=== PATIENT | female | born 1955 | race Caucasian/White ===

== ENCOUNTER 2021-12-16 09:09 | Emergency (ER) | payer BC, SELFPAY ==
[2021-12-16 09:15] VITALS: BP 145/91; PULSE 98; TEMP 36.4; O2SAT 97; BMI 23.5
--- NOTE | 2021-12-16 09:28 | ED.GENADULT ---
HPI - General Adult General Time Seen by Provider: 09:28 Date Seen: 12/16/21 Chief complaint: Skin/Abscess/Foreign Body Stated complaint: Welts on body and face Time Seen by Provider: 12/16/21 09:22 Source: patient Mode of arrival: ambulatory Limitations: no limitations History of Present Illness HPI narrative: Patient is a very pleasant 66 white female who has a history of being quite healthy, has been out trees with her , but developed a rash over her face the back of her left leg. These look like welts, they do not look like poison klaus, they have been pruritic areas. Fortunately she has note throat or tongue symptoms no breathing difficulty. She has not had history of allergy before other than maybe to be bites in the past for she had a reaction locally. No new exposures to allergens no new detergents, no new foods. Related Data Previous Rx's Medication Instructions Recorded prednisone 20 mg tablet 20 mg PO BID #10 tabs 12/16/21 Allergies Allergy/AdvReac Type Severity Reaction Status Date / Time Penicillins Allergy Verified 12/16/21 09:19 Review of Systems Status of ROS: Reports: 6 or more systems reviewed and unremarkable except as noted in History and below Exam Narrative: Exam Narrative: Objective: Patient's vital signs unremarkable Alert orient x3 noncyanotic Urticarial rash over her left side of her face back of her left leg Lungs are clear Mouth is clear. Const: Vital Signs, click to edit/add: Vital Signs - 24 hr 12/16/21 09:15 Temperature 97.5 F L Pulse Rate [Left P ulse Oximeter] 98 Blood Pressure [Ri ght Upper Arm] 145/91 H Pulse Oximetry 97 Oxygen Delivery Me thod Room Air Course Vital Signs Vital signs: Initial Vital Signs Temperature 97.5 F L 12/16/21 09:15 Temperature Source Temporal Artery Scan 12/16/21 09:15 Pulse Rate 98 12/16/21 09:15 Blood Pressure 145/91 H 12/16/21 09:15 Blood Pressure Mean 109 12/16/21 09:15 Blood Pressure Position Supine 12/16/21 09:15 Pulse Oximetry 97 12/16/21 09:15 Oxygen Delivery Method 12/16/21 09:15 Vital Signs Temperature 97.5 F L 12/16/21 09:15 Pulse Rate 98 12/16/21 09:15 Blood Pressure 145/91 H 12/16/21 09:15 Pulse Oximetry 97 12/16/21 09:15 Oxygen Delivery Method 12/16/21 09:15 Temperature 97.5 F L 12/16/21 09:15 Pulse Rate 98 12/16/21 09:15 Blood Pressure 145/91 H 12/16/21 09:15 Pulse Oximetry 97 12/16/21 09:15 Oxygen Delivery Method 12/16/21 09:15 Medical Decision Making MDM Narrative Medical decision making narrative: Patient appears to have an urticarial rash does not appear to be poison klaus or contact dermatitis. Will give her prednisone 50 mg now start 20 b.i.d. x5 days tomorrow. Will have her use Benadryl 25-50 q.i.d. with next 3 days, follow-up with primary care in 48 hours certainly return to the ED sooner any difficulty breathing throat symptoms tongue swelling. Discharge Plan Discharge Clinical Impression: Urticaria Patient Disposition: Home w/ Parent or Adult Condition: Stable Additional Instructions: Light activity, prednisone 20 mg b.i.d. x5 days start this tomorrow, Benadryl 25-50 mg 4 times a day for the next 3 days. May use some topical lotion such as hydrocortisone or moisturizing lotion. Update primary care doctor in the next 48 hours certainly sooner change concerns worsening return to ED. Activity Level: Light activity Discharge Diet: Regular Prescriptions: New prednisone 20 mg tablet 20 mg PO BID Qty: 10 0RF Stand Alone Forms: [employer] Info Instructions
[2021-12-16] MEDS: predniSONE 10 MG TABLET 50 MG PO (09:33)
[2021-12-16] MEDS: diphenhydrAMINE 25 MG CAPSULE 50 MG PO (09:33)
--- OUTSIDE RECORDS SUMMARY | 2021-12-16 09:43 | XMS_ITS | Encounter Summary ---
:1955 Author Organization [place] Address [address] [place] [address] Care Team Providers Name Role Phone Rupesh Grullon MD Primary Care Provider Rupesh Grullon MD Unavailable Jhonatan Butcher DPM Unavailable Encounter Details Date Type Department Care Team Description 02/10/2021 Travel Social History Tobacco Use Types Packs/Day Years Used Date Never Smoker Smokeless Tobacco: Never Used Alcohol Use Standard Drinks/Week Comments Yes 0 (1 standard drink = 0.6 oz pure alcoho l) 4-5 drinks a week Alcohol Habits Answer Date Recorded How often do you have a drink containing alcohol? Not asked How many drinks containing alcohol do you have on a Not aske d typical day when you are drinking? How often do you have six or more drinks on one Not asked occasion? 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 documented as of this encounter Plan of Treatment Not on filedocumented as of this encounter Visit Diagnoses Not on filedocumented in this encounter Care Teams Truck Driver Instructor Relationship Specialty Start Date End Date Rupesh Grullon MD PCP - General Internal Medicine 04/03/10 Rupesh Grullon MD Assigned PCP 10/07/16 [address] [place] [address] [place] [id number] Jhonatan Butcher, Assigned Musculoskeletal 01/01/20 02/25/21 DPM Provider [address] [place] [id number] documented as of this encounter
--- OUTSIDE RECORDS SUMMARY | 2021-12-16 09:43 | XMS_ITS | Encounter Summary ---
:1955 Author Organization [place] Address [facility]ly [facility], [facility] [place] [address] Care Team Providers Name Role Phone Rupesh Grullon MD Primary Care Provider Rupesh Grullon MD Unavailable Jhonatan Butcher DPM Unavailable Reason for Visit Reason Onset Date Comments Referral 08/10/2019 pole climber Encounter Details Date Type Department Care Team Description 08/10/2019 Telephone [facility] Rupesh Grullon MD Referral (pole climber) Clinic [address] [place] [address] [place] [address] [phone] Social History Tobacco Use Types Packs/Day Years [...] been in contact with No / Unsure 09/30/2019 8:38 AM CDT someone who was confirmed or suspected to have Coronavirus / COVID-19? documented as of this encounter Miscellaneous Notes Telephone Encounter - Carol Kaur RN - 08/10/2019 12:08 PM CDT [employer] Exchange[employer] response sent to patient. Carol Smith RN Telephone Encounter - Liz Ricks - 08/10/2019 10:55 AM CDT Reason for Call: Request for an order or referral: Order or referral being requested: pole climber Date needed: as soon as possible Has the patient been seen by the PCP for this problem? NO Additional comments: lump on bottom of foot Phone number Patient can be reached at: Cell number on file: Telephone Information: Best Time: any Can we leave a detailed message on this number? YES Call taken on 08/10/2019 at 10:55 AM by Liz Ricks documented in this encounter Plan of Treatment Not on filedocumented as of this encounter Visit Diagnoses Not on filedocumented in this encounter Care Teams Modeling Agent Relationship Specialty Start Date End Date Rupesh Grullon MD PCP - General Internal Medicine 04/03/10 Rupesh Grullon MD Assigned PCP 10/07/16 [address] [place] [id number] Jhonatan Butcher, Assigned Musculoskeletal 01/01/20 02/25/21 DPM Provider [address] [place] [id number] documented as of this encounter
--- OUTSIDE RECORDS SUMMARY | 2021-12-16 09:43 | XMS_ITS | Encounter Summary ---
:1955 Author Organization [place] Address [address] [place] [address] Care Team Providers Name Role Phone Rupesh Grullon MD Primary Care Provider Rupesh Grullon MD Unavailable Encounter Details Date Type Department Care Team Description 09/30/2019 Travel Social History Tobacco Use Types Packs/Day [...] on filedocumented in this encounter Care Teams Welder Apprentice Gas Relationship Specialty Start Date End Date Rupesh Grullon MD PCP - General Internal Medicine 04/03/10 Rupesh Grullon MD Assigned PCP 10/07/16 [address] [place], [place] [id number] documented as of this encounter
--- OUTSIDE RECORDS SUMMARY | 2021-12-16 09:43 | XMS_ITS | Encounter Summary ---
:1955 Author Organization [facility] Address [address] [place] [address]. [place] [address] Care Team Providers Name Role Phone Rupesh Grullon MD Primary Care Provider Rupesh Grullon MD Unavailable Reason for Visit Reason Onset Date Comments Orders 05/13/2019 Encounter Details Date Type Department Care Team Description 05/13/2019 Telephone [facility] Ricki Grullon MD Orders [place] [address] [facility] [address] [facility], [address] [place] [address] [place] [address] [phone] Social History Tobacco Use Types Packs/Day Years [...] Assigned at Date Recorded Not on file documented as of this encounter Miscellaneous Notes Telephone Encounter - Anna Joe - 05/14/2019 12:57 PM CST Called and informed Pt she would need an OV with Dr. Grullon. I offered 05/17 or 05/20. Pt will call back to schedule. OK TO USE A TC HOLD ON OR 05/20 IT REVIEW MANAGER Telephone Encounter - Digna Harkins CMA - 05/14/2019 9:52 AM CST Please call patient to schedule. Digna Harkins MA IT REVIEW MANAGER Telephone Encounter - Kevin Smith MD - 05/13/2019 2:03 PM CREDIT REVIEW MANAGER Appointment would be needed for this IT REVIEW MANAGER Telephone Encounter - Digna Harkins CMA - 05/13/2019 1:36 PM CST Please see below and place order if appropriate. Digna Harkins MA IT REVIEW MANAGER Telephone Encounter - Alexandria Hlot - 05/13/2019 1:31 PM CST Reason for Call: Request for an order or referral: Order or referral being requested: MRI for shoulder she injured in february needed: as soon as possible Has the patient been seen by the PCP for this problem? NO Additional comments: Phone number Patient can be reached at: Home number on file [phone] (home) Best Time: any Can we leave a detailed message on this number? YES Call taken on 05/13/2019 at 1:32 PM by Alexandria Holt IT REVIEW MANAGER documented in this encounter Plan of Treatment Not on filedocumented as of this encounter Visit Diagnoses Not on filedocumented in this encounter Care Teams Patient Registration Representative Relationship Specialty Start Date End Date Rupesh Grullon MD PCP - General Internal Medicine 04/03/10 Rupesh Grullon MD Assigned PCP 10/07/16 [address] [place], [place] [address] documented as of this encounter
--- OUTSIDE RECORDS SUMMARY | 2021-12-16 09:43 | XMS_ITS | Encounter Summary ---
:1955 Author Organization [place] Address [address] [place] [address] Care Team Providers Name Role Phone Rupesh Grullon MD Primary Care Provider Rupesh Grullon MD Unavailable Encounter Details Date Type Department Care Team Description 05/26/2019 Travel Social History Tobacco Use Types Packs/Day [...] been in contact with No / Unsure 05/26/2019 3:55 PM CDT someone who was confirmed or suspected to have Coronavirus / COVID-19? documented as of this encounter Plan of Treatment Not on filedocumented as of this encounter Visit Diagnoses Not on filedocumented in this encounter Care Teams Boat Carpenter Mechanic Relationship Specialty Start Date End Date Rupesh Grullon MD PCP - General Internal Medicine 04/03/10 Rupesh Grullon MD Assigned PCP 10/07/16 [address] [place], [place] [id number] documented as of this encounter
--- OUTSIDE RECORDS SUMMARY | 2021-12-16 09:43 | XMS_ITS | Encounter Summary ---
:1955 Author Organization [place] Address [address] [place] [address] Care Team Providers Name Role Phone Rupesh Grullon MD Primary Care Provider Rupesh Grullon MD Unavailable Reason for Referral Diagnostic Imaging Mammo (Routine) - Pending Review Specialty Diagnoses / Procedures Referred By Contact Refer red To Contact Diagnoses Other screening mammogram Faviola Payton MD Procedures MA Screen Bilateral w/Buck [address] [place] [phone] Referral ID Status Reason Start Date Expiration Date Visits V isits Requested Authorized [id number] Pending 02/20/2021 02/20/2022 1 1 Review THERAPIST Reason for Visit Diagnostic Imaging Mammo (Routine) - Pending Review Specialty Diagnoses / Procedures Referred By Contact Refer red To Contact Diagnoses Other screening mammogram Faviola Payton MD Procedures MA Screen Bilateral w/Buck [address] [place] [phone] Referral ID Status Reason Start Date Expiration Date Visits V isits Requested Authorized [id number] Pending 02/20/2021 02/20/2022 1 1 Review Encounter Details Date Type Department Care Team Description 03/22/2021 Hospital Encounter [facility] Faviola Payton [facility] er screening [facility] [address] [place] [address], [address] [place] [address] [phone] Social History Tobacco Use Types Packs/Day Years [...] been in contact with No / Unsure 03/22/2021 10:55 AM PHYS THERAPIST someone who was confirmed or suspected to have Coronavirus / COVID-19? documented as of this encounter Medications at Time of Discharge Medication Sig Dispensed Refills Start Date End Date cyclobenzaprine (FLEXERIL) Take 1 tablet (10 mg) 20 tablet 1 01/08/2019 10 MG tabletIndications: by mouth 2 times Strain of left hamstring daily as needed for muscle, initial encounter muscle spasms CAUTION: May cause drowsiness furosemide (LASIX) 20 MG Take 1 tablet (20 mg) 10 tablet 1 07/06/2019 tabletIndications: by mouth daily Localized edema NO ACTIVE MEDICATIONS 0 04/03/2010 documented as of this encounter Plan of Treatment Not on filedocumented as of this encounter Procedures Procedure Name Priority Date/Time Associated Diagnosis Comme nts MA SCREENING Routine 03/22/2021 11:31 AM Other screening Resul ts for this BILATERAL W/ BUCK PHYS THERAPIST mammogram procedure are in the results section. documented in this encounter Results MA Screen Bilateral w/Buck (03/22/2021 11:31 AM PHYS THERAPIST) Anatomical Region Laterality Modality Breast Bilateral Mammography Specimen (Source) Anatomical Location Collection Method / Collectio n Time Received Time / Laterality Volume Narrative 03/22/2021 1:47 PM PHYS THERAPIST BILATERAL FULL FIELD DIGITAL SCREENING MAMMOGRAM WITH TOMOSYNTHESIS Performed on: 03/22/21 Compared to: 09/30/2019 and 06/30/2012 Technique: ??This study was evaluated wi th the assistance of Computer-Aided Detection. ??Breast Tomosynthesis was us ed in interpretation. Findings: The breasts are heterogeneousl y dense, which may obscure small masses. ??There is no radiographic evide nce of malignancy. IMPRESSION: ACR BI-RADS Category 1: Nega tive RECOMMENDED FOLLOW-UP: Annual routine sc reening mammogram The results and recommendations of this examination will be communicated to the patient. Faviola Payton MD IMG MAMMOGRAPHY ORDERABLES documented in this encounter Visit Diagnoses Diagnosis Other screening mammogram documented in this encounter Care Teams Food Technology Teacher Relationship Specialty Start Date End Date Rupesh Grullon MD PCP - General Internal Medicine 04/03/10 Rupesh Grullon MD Assigned PCP 10/07/16 [address] [place], [place] [address] documented as of this encounter
--- OUTSIDE RECORDS SUMMARY | 2021-12-16 09:43 | XMS_ITS | Encounter Summary ---
:1955 Author Organization [place] Address [address] [place] [address] Care Team Providers Name Role Phone Rupesh Grullon MD Primary Care Provider Rupesh Grullon MD Unavailable Reason for Visit [facility] (Routine) - Closed Specialty Diagnoses / Procedures Referred By Contact Refer red To Contact Diagnoses Hip pain, acute, left Strain of left hip, initial encounter James Mc MD [facility] [address] [place] [address] Referral ID Status Reason Start Date Expiration Date Visits Requ ested Visits Authorized [id number] Closed 02/10/2019 03/10/2019 40 38 Encounter Details Date Type Department Care Team Description 02/11/2019 Therapy Visit [facility] Shemar Mc MD [facility] [address] [place] [address] Hip pain, acute, left; Rehabilitation Services Jose Delatorre, PT [address] [place] [address] Strain of left hip, initial encounter; [facility]ica Winston Bilateral leg pain; [address] [place] [address] [place] [address] Social History Tobacco Use Types Packs/Day Years [...] on file documented as of this encounter Progress Notes Jose Delatorre, PT - 02/11/2019 1:50 PM CST [facility] Initial Evaluation Subjective: Patient is referred with a 2 month hx of bilateral leg pain and intermittent weakness. She recalls coming down with a bad cough in December 2018 but is not sure if this has anything to do with onset of leg sxs. PMH includes osteoporosis. Recent hip and pelvis MRI was inconclusive. She seems to note incr easing leg sxs with prolonged walking and has had several instances of the L leg giving way. She notes increased pain in the legs at night and her sleep has been disturbed. No c/o LBP. The history is provided by the patient. Type of problem: Lumbar and sacroiliac Condition occurred with: Insidious onset. This is a new condition Site of Pain: bilateral legs. Radiates to: Knee left, knee right, lower leg left, lower leg right, thigh left and thigh right. Associated symptoms: Loss of strength. Symptoms are exacerbated by walking and standing and relieved by nothing. Nadia Espino being seen for B leg pain, weakness. Where condition occurred: for unknown reasons. and reported as 2/10 on pain scale. General health asreported by patient is excellent. Pertinent medical history includes: Osteoporosis. 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 Pain is described as aching and is c onstant. Pain is worse during the night. Since onset symptoms are unchanged. Special tests: MRI. 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 Barriers include: None as reported by patient. Red flags: Pain at rest/night. Objective: System Lumbar/SI Evaluation ROM: AROM Lumbar: normal Lumbar Myotomes: Lumbar myotomes: left hip abductor and extensor weakness noted. T12-L3 (Hip Flex): Left: 5 Right: 5 L2-4 (Quads): Left: 5 Right: 5 L4 (Ankle DF): Left: 5 Right: 5 L5 (Great Toe Ext): Left: 5 Right: 5 S1 (Toe Raise): Left: 5 Right: 5 Lumbar Dermtomes: normal Neural Tension/Mobility: Lumbar: Normal Lumbar Palpation: normal Functional Tests: normal General ROS Assessment/Plan: Patient is a 63 year old female with lumbar complaints. Patient has the following significant findings with corresponding treatment plan. Diagnosis 1: Bilateral leg pain and weakness Pain - mechanical traction, manual therapy, self management, education, directional preference exercise and home program Decreased strength - therapeutic exercise, therapeutic activities and home program Decreased proprioception - neuro re-education, therapeutic activities and home program Impaired gait - home program Impaired muscle performance - neuro re-education and home program Decreased function - therapeutic activities and home program Therapy Evaluation Codes: 1) History comprised of: Personal factors that impact the plan of care: Overall behavior pattern and Time since onset of symptoms. Comorbidity factors that impact the plan of care are: None. Medications impacting care: None. 2) Examination of Body Systems comprised of: Body structures and functions that impact the plan of care: Lumbar spine and Pelvis. Activity limitations that impact the plan of care are: Squatting/kneeling, Stairs, Standing and Walking. 3) Clinical presentation characteristics are: Evolving/Changing. 4) Decision-Making Moderate complexity using standardized patient assessment instrument and/or measureable assessment of functional outcome. Cumulative Therapy Evaluation is: Moderate complexity. Previous and current functional limitations: (See Goal Flow Sheet for this information) Short term and intermission coordinator goals: (See Goal Flow Sheet for this information) Communication ability: Patient appears to be able to clearly communicate and understand verbal and written communication and follow directions correctly. Treatment Explanation - The following has been discussed with the patient: RX ordered/plan of care Anticipated outcomes Possible risks and side effects This patient would benefit from PT intervention to resume normal activities. Rehab potential is fair. Frequency: 1 X week, once daily Duration: for 4 weeks Discharge Plan: Achieve all LTG. Independent in home treatment program. Reach maximal therapeutic benefit. Please refer to the daily flowsheet for treatment today, total treatment time and time spent performing 1:1 timed codes. OFFICE MANAGER Jose Delatorre, PT - 02/11/2019 1:50 PM CST Patient seen for one time evaluation and treatment. Patient did not return for further treatment andcurrent status is unknown. Please see initial evaluation for further information. OFFICE MANAGER documented in this encounter Plan of Treatment Not on filedocumented as of this encounter Procedures Procedure Name Priority Date/Time Associated Diagnosis Comme nts Z THERAPEUTIC Routine 02/11/2019 2:59 PM Hip pain, acu te, left EXERCISES LAW OFFICE MANAGER Strain of left hip, initial encounte r Bilateral leg pa in Bilateral leg weakness documented in this encounter Visit Diagnoses Diagnosis Hip pain, acute, left Strain of left hip, initial encounter Bilateral leg pain Pain in limb Bilateral leg weakness Other musculoskeletal symptoms referable to limbs documented in this encounter Care Teams Solar Development Engineer Relationship Specialty Start Date End Date Rupesh Grullon MD PCP - General Internal Medicine 04/03/10 Rupesh Grullon MD Assigned PCP 10/07/16 [address] [place] [address] [place] [address] documented as of this encounter
--- OUTSIDE RECORDS SUMMARY | 2021-12-16 09:43 | XMS_ITS | Encounter Summary ---
:1955 Author Organization [place] Address [address] [place] [address] Care Team Providers Name Role Phone Rupesh Grullon MD Primary Care Provider Rupesh Grullon MD Unavailable Reason for Referral [facility] Physical Therapy (Routine) - Closed Specialty Diagnoses / Procedures Referred By Contact Refer red To Contact Diagnoses Hip pain, acute, left Strain of left hip, initial encounter James Mc MD [facility] [address] [place] [address] Referral ID Status Reason Start Date Expiration Date Visits Requ ested Visits Authorized [id number] Closed 02/10/2019 03/10/2019 40 38 SCAPE HORTICULTURE INSTRUCTOR Reason for Visit Reason Onset Date Comments other 02/10/2019 Pt is calling wonder ing what Dr Mc for next step? Encounter Details Date Type Department Care Team Description 02/10/2019 Telephone [facility] James Mc other ( Pt is calling [facility] Hendrickson MD wondering what [facility] UVALDO Mc for next 5 [facility] [place] [address] vera? ) [address] [place] [address] [place] [phone] (W ork) [id number] [phone] Social History Tobacco Use Types Packs/Day Years [...] this encounter Miscellaneous Notes Telephone Encounter - James Mc MD - 02/10/2019 3:22 PM LANDSCAPE HORTICULTURE INSTRUCTOR Spoke with patient, reviewed MRI, indicating no signs of arthritis or insufficiency fracture in the hip joint itself. There is some mild SI arthritis, but she has no pain in that area. She is a very active person, therefore will send to physical therapy and treat as a hip flexor strain. Monitor for signs of sciatica if things worsen. SCAPE HORTICULTURE INSTRUCTOR Telephone Encounter - Natividad Sharma - 02/10/2019 1:36 PM CST Spoke with patient, she agrees to physical therapy. She is requesting clarification on xrays/MRI and whether or not she has arthritis. Please advise and sign off on SANDRA order. SCAPE HORTICULTURE INSTRUCTOR Telephone Encounter - Alva Jackson - 02/10/2019 12:00 PM CST Reason for Call: Other call back Detailed comments: Pt wondering what Dr Mc suggests for next step. Phone Number Patient can be reached at: Home number on file [phone] (home) Best Time: anytime Can we leave a detailed message on this number? YES Call taken on 02/10/2019 at 12:01 PM by Alva Jackson SCAPE HORTICULTURE INSTRUCTOR documented in this encounter Plan of Treatment Scheduled Referrals Name Type Priority Associated Diagnoses Order S bang SANDRA PT, HAND, AND Referral Routine Hip pain, acut e, left 1 Occurrences starting CHIROPRACTIC REFERRAL Strain of left hip, 02/10/2019 until initial encounter 02/10/2020 documented as of this encounter Visit Diagnoses Diagnosis Hip pain, acute, left - Primary Strain of left hip, initial encounter documented in this encounter Care Teams Needle Control Cheniller Relationship Specialty Start Date End Date Rupesh Grullon MD PCP - General Internal Medicine 04/03/10 Rupesh Grullon MD Assigned PCP 10/07/16 [address] [place], [place] [address] documented as of this encounter
--- OUTSIDE RECORDS SUMMARY | 2021-12-16 09:43 | XMS_ITS | Encounter Summary ---
:1955 Author Organization [place] Address [facility] [place] [address] Care Team Providers Name Role Phone Rupesh Grullon MD Primary Care Provider Rupesh Grullon MD Unavailable Reason for Visit Reason Onset Date Comments Foot Problems 07/06/2019 left foot swelling a round arch 1 month Encounter Details Date Type Department Care Team Description 07/06/2019 Virtual Visit [facility] Rupesh Grullon MD Localized edema Clinic [place] [address] (Primary Dx) [address] [facility] [address] [facility], [address] [place] [address] [place] [address] Social History Tobacco Use Types Packs/Day Years [...] documented as of this encounter Progress Notes Rupesh Grullon MD - 07/06/2019 1:30 PM CDT Nadia Espino is a 64 year old female who is being evaluated via a billable video visit. The patient has been notified of following: This video visit will be conducted via a call between you and your physician/provider. We have found that certain health care needs can be provided without the need for an in-person physical exam. This service lets us provide the care you need with a video conversation. If a prescription is necessarywe can send it directly to your pharmacy. If lab work is needed we can place an order for that and you can then stop by our lab to have the test done at a later time. Video visits are billed at different rates depending on your insurance coverage. Please reach out toyour insurance provider with any questions. If during the course of the call the physician/provider feels a video visit is not appropriate, you will not be charged for this service. Patient has given verbal consent for Video visit? Yes How would you like to obtain your AVS? Mary Patient would like the video invitation sent by: Text to cell phone: [phone] Will anyone else be joining your video visit? No Subjective Nadia Espino is a 64 year old female who presents to clinic today for the following health issues: [facility] Video Start Time: 1 Patient has noticed for the last 1 to 2 weeks right foot swelling and is worried about gout, there is no pain or redness, she has been taking a protein supplement and thought the gout could be coming on. She does not have fever or chills but notices her body temperature to be 99.8 There has been no travel or other coronavirus symptoms Patient Active Problem List Diagnosis ??? Symptomatic states associated with artificial menopause ??? Incontinence ? ? Hyperlipidemia LDL goal <130 ??? Advanced directives, counseling/discussion ??? Ganglion of left wrist ??? Urinary tract infection ??? Age-related osteoporosis without current pathological fracture Past Surgical History: Procedure Laterality Date ??? HYSTERECTOMY TOTAL ABDOMINAL, BILATERAL SALPINGO-OOPHORECTOMY, COMBINED 2006 ovaries left Social History Tobacco Use ??? Smoking status: Never Smoker ??? Smokeless tobacco: Never Used Substance Use Topics ??? Alcohol use: Yes Alcohol/week: 0.0 standard drinks Comment: 4-5 drinks a week Family History Problem Relation Age of Onset ??? Gastrointestinal Disease Mother crohn's ??? Diabetes Mother OA also ??? C.A.D. Sister 55, cardiac sx ??? C.A.D. Maternal Grandmother ??? Thyroid Disease Sister evangelista's ??? Thyroid Disease Brother Current Outpatient Medications Medication Sig Dispense Refill ??? furosemide (LASIX) 20 MG tablet Take 1 tablet (20 mg) by mouth daily 10 tablet 1 ??? cyclobenzaprine (FLEXERIL) 10 MG tablet Take 1 tablet (10 mg) by mouth 2 times daily as needed for muscle spasms CAUTION: May cause drowsiness (Patient not taking: Reported on 01/16/2019) 20 tablet 1 ??? NO ACTIVE MEDICATIONS 0 Reviewed and updated as needed this visit by Provider Review of Systems 10 point ROS of systems including Constitutional, Eyes, Respiratory, Cardiovascular, Gastroenterology, Genitourinary, Integumentary, Muscularskeletal, Psychiatric were all negative except for pertinentpositives noted in my HPI. Objective There were no vitals taken for this visit. Estimated body mass index is 26.31 kg/m?? as calculated from the following: Height as of 01/22/19: 1.676 m (5' 6). Weight as of 01/22/19: 73.9 kg (163 lb). Physical Exam GENERAL: healthy, alert and no distress RESP: no audible wheeze, cough, or visible cyanosis. No visible retractions or increased work of breathing. Able to speak fully in complete sentences. NEURO: Cranial nerves grossly intact, mentation intact and speech normal PSYCH: mentation appears normal, affect normal/bright, judgement and insight intact, normal speech and appearance well-groomed Foot was examined by video and she can bear the weight without any pain on inspection there is swelling of the dorsum of the foot slightly There is no redness or loss of movement There is no tenderness to palpation which was done by her Assessment & Plan Nadia was seen today for foot problems. Diagnoses and all orders for this visit: Localized edema - furosemide (LASIX) 20 MG tablet; Take 1 tablet (20 mg) by mouth daily Patient has started to take amino acid supplement and is drinking a lot of fluids, we will try Lasixfor 3 days and she will continue a compression sock If things do not improve she will need to be seen. BMI: Estimated body mass index is 26.31 kg/m?? as calculated from the following: Height as of 01/22/19: 1.676 m (5' 6). Weight as of 01/22/19: 73.9 kg (163 lb). No follow-ups on file. MD WAT[place] Video-Visit Details Type of service: Video Visit Video End Time:1:46 PM Originating Location (pt. Location): Home Distant Location (provider location): [facility] Mode of Communication: Video Conference via [employer] (now [employer]) No follow-ups on file. Rupesh Grullon MD documented in this encounter Plan of Treatment Not on filedocumented as of this encounter Visit Diagnoses Diagnosis Localized edema - Primary Edema documented in this encounter Care Teams Metal Products Fabricator Assembler Relationship Specialty Start Date End Date Rupesh Grullon MD PCP - General Internal Medicine 04/03/10 Rupesh Grullon MD Assigned PCP 10/07/16 [address] [place] [address] [address] documented as of this encounter
--- OUTSIDE RECORDS SUMMARY | 2021-12-16 09:43 | XMS_ITS | Encounter Summary ---
:1955 Author Organization [place] Address [facility] [place] [address] Care Team Providers Name Role Phone Rupesh Grullon MD Primary Care Provider Rupesh Grullon MD Unavailable Reason for Visit Diagnostic Imaging Dexa (Routine) - Pending Review Specialty Diagnoses / Procedures Referred By Contact Refer red To Contact Diagnoses Age-related osteoporosis without current pathological fracture Rupesh Grullon MD Procedures DX Hip/Pelvis/Spine [address] [facility] [address] [place] [address] Referral ID Status Reason Start Date Expiration Date Visits V isits Requested Authorized [id number] Pending 03/22/2021 03/22/2022 1 1 Review Encounter Details Date Type Department Care Team Description 03/22/2021 Ancillary Procedure [facility] Age -related [facility] [place] osteoporosis without [address] [facility] current [employer] May fracture [address] [place] [address] Social History Tobacco Use Types Packs/Day Years [...] with No / Unsure 03/22/2021 10:55 AM DECORATIVE GREENS CUTTER someone who was confirmed or suspected to have Coronavirus / COVID-19? documented as of this encounter Plan of Treatment Not on filedocumented as of this encounter Procedures Procedure Name Priority Date/Time Associated Diagnosis Comme nts DX HIP/PELVIS/SPINE Routine 03/22/2021 11:37 Age-related Resu lts for this AM DECORATIVE GREENS CUTTER osteoporosis without procedu re are in current pathological the res ults fracture section. documented in this encounter Results DX Hip/Pelvis/Spine (03/22/2021 11:37 AM DECORATIVE GREENS CUTTER) Anatomical Region Laterality Modality Dexa Bone Mineral Density Specimen (Source) Anatomical Location Collection Method / Collectio n Time Received Time / Laterality Volume Narrative 03/25/2021 2:10 PM DECORATIVE GREENS CUTTER BONE DENSITOMETRY [address] [address] 03/22/2021 ?? PATIENT: Nadia Espino CHART: [id number] : ??1955 AGE: ??65 year old SEX: ??female REFERRING PROVIDER: ??Rupesh Grullon MD ?? PROCEDURE: ??Bone density scanning was p erformed using DXA technology of the lumbar spine and hip. ??Scanning was performed on a hipix scanner. ??Reporting is completed in the form of a T-score. ??The T-score represents the standard deviation from p eak bone mass based on a young healthy adult. ?? REFERENCE T-SCORES: ?Normal ?-1.0 and greater ?Osteopenia ? Between -1. 0 and -2.5 ?Osteoporosis ? -2.5 and less ? RISK FACTORS: ??Post-menopausal, Parent history of osteoporosis with a hip fracture, follow up osteoporosis CURRENT TREATMENT: ??None listed ?? FINDINGS: ? Lumbar Spine (L1-L4) ?T-score: ??-2.6, degenerative changes present ? Left Femoral Neck ?T-score: ??-2.1 ? Right Femoral Neck ?T-score: ??-2.0 ? Lumbar (L1-L4) BMD: 0 .868 ?Previous: 0.839 ? Total Hip Mean BMD: 0 .814 ? Previous: 0.806 Comparison is made to another DXA perfor med on a different AiMeiWei machine on 12/31/2018. IMPRESSION Osteoporosis., Degenerative changes of t he lumbar spine which may falsely elevate results. Comparisons from different scanners that have not been cross calibrated, are not necessarily valid. Such a compar henny has been performed here; one should interpret with caution. There has been probably no significant c hange in bone density of the lumbar spine. There has been probably no significant change in bone density of the hip(s). Recommendations include ensuring adequat e Calcium and Vitamin D. The current NOF Guidelines recommend penny atment for patients with prior hip or vertebral fracture, T-score -2.5 or b elow, or 10 year risk of any major osteoporotic fracture >20% or [address] of hip fracture >3%, as calculated using the FRAX calculator (kevon w.shef.ac.uk/FRAX or you can google FRAX). ?? Based on these guidelines, treatment (in addition to calcium and vitamin D) is recommended for this patient, afte r ruling out other causes of osteoporosis. This is meant as an aid to clinical deci clarice making; one must still use clinical judgement. Follow up can be considered in 2 years. Beatris Booker M.D. Electronically signed ? Rupesh Grullon MD IMG DEXA ORDERABLES documented in this encounter Visit Diagnoses Diagnosis Age-related osteoporosis without current pathological fracture Senile osteoporosis documented in this encounter Care Teams Petroleum Refinery Worker Relationship Specialty Start Date End Date Rupesh Grullon MD PCP - General Internal Medicine 04/03/10 Rupesh Grullon MD Assigned PCP 10/07/16 [address] [place], [place] [address] documented as of this encounter
--- OUTSIDE RECORDS SUMMARY | 2021-12-16 09:43 | XMS_ITS | Encounter Summary ---
:1955 Author Organization [place] Address [address] [place] [address] Care Team Providers Name Role Phone Rupesh Grullon MD Primary Care Provider Rupesh Grullon MD Unavailable Encounter Details Date Type Department Care Team Description 08/25/2019 Travel Social History Tobacco Use Types Packs/Day [...] been in contact with No / Unsure 08/25/2019 1:25 PM CDT someone who was confirmed or suspected to have Coronavirus / COVID-19? documented as of this encounter Plan of Treatment Not on filedocumented as of this encounter Visit Diagnoses Not on filedocumented in this encounter Care Teams Surgical Technology Instructor Relationship Specialty Start Date End Date Rupesh Grullon MD PCP - General Internal Medicine 04/03/10 Rupseh Grullon MD Assigned PCP 10/07/16 [address] [place], [place] [address] documented as of this encounter
--- OUTSIDE RECORDS SUMMARY | 2021-12-16 09:43 | XMS_ITS | Encounter Summary ---
:1955 Author Organization [place] Address [address] [place] [address]. [place] [address] Care Team Providers Name Role Phone Rupesh Grullon MD Primary Care Provider Rupesh Grullon MD Unavailable Reason for Referral Diagnostic Imaging Dexa (Routine) - Pending Review Specialty Diagnoses / Procedures Referred By Contact Refer red To Contact Diagnoses Age-related osteoporosis without current pathological fracture Rupesh Grullon MD Procedures DX Hip/Pelvis/Spine [address] [facility] [address] [place] [address] Referral ID Status Reason Start Date Expiration Date Visits V isits Requested Authorized [id number] Pending 03/22/2021 03/22/2022 1 1 Review TEGIC BUYER Reason for Visit Reason Onset Date Comments Orders 03/22/2021 Encounter Details Date Type Department Care Team Description 03/22/2021 Telephone [facility] Ricki Grullon MD Orders [place] [address] [facility] [place] [address] [place] [id number] [phone] Social History Tobacco Use Types Packs/Day Years [...] with No / Unsure 03/22/2021 10:55 AM STRATEGIC BUYER someone who was confirmed or suspected to have Coronavirus / COVID-19? documented as of this encounter Miscellaneous Notes Telephone Encounter - Idalmis Ling RN - 03/22/2021 11:32 AM CST Order signed by Dr. Smith. Idalmis Ling RN [facility] TEGIC BUYER Telephone Encounter - Kevin Smith MD - 03/22/2021 11:30 AM STRATEGIC BUYER Order signed Kevin Smith MD, MD TEGIC BUYER Telephone Encounter - Hilario Bah RN - 03/22/2021 9:40 AM CST Pt is requesting mammogram and Dexa scan orders. She has both test scheduled today at 11:00 AM and asked if we can fax orders to [facility] at [phone]. Pt denies any breast concerns has order for screening mammograms on file but will need Dexa order approved. Please approve if agree with order. Triage please fax orders to [facility] at [phone]. Pt will have test with [facility] but asked that wefax orders. TEGIC BUYER documented in this encounter Plan of Treatment Not on filedocumented as of this encounter Results DX Hip/Pelvis/Spine (03/22/2021 11:37 AM STRATEGIC BUYER) Anatomical Region Laterality Modality Dexa Bone Mineral Density Specimen (Source) Anatomical Location Collection Method / Collectio n Time Received Time / Laterality Volume Narrative 03/25/2021 2:10 PM STRATEGIC BUYER BONE DENSITOMETRY [address] [address] 03/22/2021 ?? PATIENT: Nadia Espino CHART: [id number] : ??1955 AGE: ??65 year old SEX: ??female REFERRING PROVIDER: ??Rupesh Grullon MD ?? PROCEDURE: ??Bone density scanning was p erformed using DXA technology of the lumbar spine and hip. ??Scanning was performed on a Glomera scanner. ??Reporting is completed in the form [...] another DXA perfor med on a different IXI-Play machine on 12/31/2018. IMPRESSION Osteoporosis., Degenerative changes [...] osteoporosis without current pathological fracture Senile osteoporosis Age-related osteoporosis without current pathological fracture - Primary Senile osteoporosis documented in this encounter Care Teams Gravel Weigher Relationship Specialty Start Date End Date Rupesh Grullon MD PCP - General Internal Medicine 04/03/10 Rupesh Grullon MD Assigned PCP 10/07/16 [address] [place] [address] documented as of this encounter
--- OUTSIDE RECORDS SUMMARY | 2021-12-16 09:43 | XMS_ITS | Clinical Summary ---
:1955 Author Organization [facility] Address [address] [place] [address] Care Team Providers Name Role Phone Rupesh Grullon MD Primary Care Provider Rupesh Grullon MD Unavailable Allergies Active Allergy Reactions Severity Noted Date Comments Bicillin C-R, Hives 04/03/2010 Penicillins 07/21/2009 Medications Medication Sig Dispensed Refills Start Date End Date Status NO ACTIVE MEDICATIONS 0 04/03/2010 Active cyclobenzaprine Take 1 tablet (10 20 tablet 1 01/08/2019 Active (FLEXERIL) 10 MG mg) by mouth 2 tabletIndications: times daily as Strain of left needed for muscle hamstring muscle, spasms CAUTION: initial encounter May cause drowsiness Additional Information Patient not taking. Reported on 01/16/2019 furosemide (LASIX) 20 MG Take 1 tablet (20 10 tablet 1 020 Active tabletIndications: Localized mg) by mouth daily edema Additional Information Patient not taking. Reported on 08/25/2019 Active Problems Problem Noted Date Age-related osteoporosis without current pathological fracture 01/28/2018 Urinary tract infection 09/07/2015 Advanced directives, counseling/discussion 03/03/2012 Overview: Patient states has Advance Directive and will bring in a copy to clinic. Marla Winkler LPN 03/03/2012 Hyperlipidemia LDL goal <130 07/04/2010 Incontinence 04/03/2010 Symptomatic states associated with artificial menopaus e Overview: hysterectomy, night sweats Ganglion of left wrist Resolved Problems Problem Noted Date Resolved Date Bilateral leg pain 02/11/2019 03/26/2019 Bilateral leg weakness 02/11/2019 03/26/2019 CARDIOVASCULAR SCREENING; LDL GOAL LESS THAN 70 04/11/2010 07/04/2010 Immunizations Name Administration Dates Next Due Influenza (IIV3) PF 12/24/2002 TD (ADULT, 7+) 12/24/2002 TDAP Vaccine (Adacel) 04/03/2010 Td (Adult), Adsorbed 12/24/2002 Zoster vaccine recombinant adjuvanted (SHINGRIX) 03/14/2018, 01/06/2018 Family History Medical History Relation Comments Thyroid Disease Brother 2 C.A.D. Maternal Grandmother Diabetes Mother OA also Gastrointestinal Disease Mother crohn's Breast Cancer Sister 1 C.A.D. Sister 4 55, cardiac sx Thyroid Disease Sister 5 evangelista's Relation Status Comments Brother 1 Alive Brother 2 Father Alive 80s Maternal Grandmother Mother Alive 1928 Sister 1 Alive Sister 2 Alive Sister 3 Alive Sister 4 Sister 5 Social History Tobacco Use Types Packs/Day Years [...] Assigned at Date Recorded Not on file Last Filed Vital Signs Vital Sign Reading Time Taken Comments Blood Pressure 138/86 08/25/2019 2:05 PM CDT Pulse 79 08/25/2019 2:05 PM CDT Temperature 36.5 ??C (97.7 ??F) 01/22/2019 11:43 AM BUTTERMILK DRIER OPERATOR Respiratory Rate 16 06/01/2018 10:03 AM CDT Oxygen Saturation 97% 08/25/2019 2:05 PM CDT Inhaled Oxygen Concentration - - Weight 74.4 kg (164 lb) 08/25/2019 2:05 PM CDT Height 167.6 cm (5' 6) 01/22/2019 11:43 AM BUTTERMILK DRIER OPERATOR Body Mass Index 26.47 01/22/2019 11:43 AM BUTTERMILK DRIER OPERATOR Plan of Treatment Health Maintenance Due Date Last Done Comments ANNUAL REVIEW OF HM ORDERS 1955 CT COLONOGRAPHY 1955 FIT-DNA (Cologuard) 1955 FIT 1955 FLEX SIG 1955 ADVANCE CARE PLANNING 03/03/2017 03/03/2012 TSH W/FREE T4 REFLEX 01/06/2019 01/06/2018, 10/01/2016, 03/13/2012, Additional history exists COLONOSCOPY 02/22/2020 02/21/2010 COLORECTAL CANCER SCREENING 02/22/2020 DTAP/TDAP/TD IMMUNIZATION 04/03/2020 04/03/2010, 12/24/2002 , (2 - Td or Tdap) 12/24/2002 COVID-19 Vaccine (3 - 09/22/2020 07/28/2020, 07/08/2020 Booster for Pfizer series) PHQ-2 (once per calendar 03/11/2021 01/22/2019, 01/08/2019, year) 01/08/2019, Additional history exists FALL RISK ASSESSMENT 2021 MEDICARE ANNUAL WELLNESS 2021 01/06/2018, 03/03/2012 VISIT Pneumococcal Vaccine: 65+ 2021 Years (1 - PCV) INFLUENZA VACCINE (#1) 2021 01/08/2019 (Declined), 12/24/2002 DEXA 03/22/2022 03/22/2021, 12/31/2018, 01/10/2018, Additional history exists LIPID 01/06/2023 01/06/2018, 03/13/2012, 06/30/2010 MAMMO SCREENING 03/22/2023 03/22/2021, 09/30/2019, 06/06/2018, Additional history exists HEPATITIS C SCREENING Completed 01/06/2018 HIV SCREENING Completed 01/06/2018 ZOSTER IMMUNIZATION Completed 03/14/2018, 01/06/2018 HEPATITIS B IMMUNIZATION Aged Out No long er eligible based on patient 's age to complete this topic IPV IMMUNIZATION Aged Out No longer eligi ble based on patient 's age to complete this topic MENINGITIS IMMUNIZATION Aged Out No longe r eligible based on patient 's age to complete this topic Medical Devices Implanted Type Area Yarn Dyer Device Shelf Model / Identifier Expiration Serial / Date Lot Vsp Orthognathic Bundle Metallic N/A: ANNETTE VSPORTHOG / Implanted: Qty: 1 on 02/11/2018 [employer] / chor [id number] Insurance Payer Benefit Plan / Subscriber ID Effective Dates Phone Addre ss Type Group BCBS [place] [id number] 2016-Natalya [phone] [address] [address] Indemnity t 0 [place] [address] ([place]) [place] [address] Care Teams Aadc Plans Staff Officer Relationship Specialty Start Date End Date Rupesh Grullon MD PCP - General Internal Medicine 04/03/10 Rupesh Grullon MD Assigned PCP 10/07/16 [address] [facility] [address] [place] [address]
--- OUTSIDE RECORDS SUMMARY | 2021-12-16 09:43 | XMS_ITS | Encounter Summary ---
:1955 Author Organization [facility] Address [address] [place] [address] Care Team Providers Name Role Phone Rupesh Grullon MD Primary Care Provider Rupesh Grullon MD Unavailable Encounter Details Date Type Department Care Team Description 02/11/2019 Travel Social History Tobacco Use Types Packs/Day [...] on file documented as of this encounter Plan of Treatment Not on filedocumented as of this encounter Visit Diagnoses Not on filedocumented in this encounter Care Teams Traffic Technician Relationship Specialty Start Date End Date Rupesh Grullon MD PCP - General Internal Medicine 04/03/10 Rupesh Grullon MD Assigned PCP 10/07/16 [address] [address] documented as of this encounter
--- OUTSIDE RECORDS SUMMARY | 2021-12-16 09:43 | XMS_ITS | Encounter Summary ---
:1955 Author Organization [facility] Address [address] [place] [address] Care Team Providers Name Role Phone Rupesh Grullon MD Primary Care Provider Rupesh Grullon MD Unavailable Reason for Referral Diagnostic Imaging Mammo (Routine) - Closed Specialty Diagnoses / Procedures Referred By Contact Refer red To Contact Diagnoses Visit for screening mammogram Rupesh Grullon MD Procedures MA Screen Bilateral w/Buck [address] [place] [address] Referral ID Status Reason Start Date Expiration Date Visits Requ ested Visits Authorized [id number] Closed 05/26/2019 05/25/2020 1 1 Reason for Visit Diagnostic Imaging Mammo (Routine) - Closed Specialty Diagnoses / Procedures Referred By Contact Refer red To Contact Diagnoses Visit for screening mammogram Rupesh Grullon MD Procedures MA Screen Bilateral w/Buck [address] [place] [address] Referral ID Status Reason Start Date Expiration Date Visits Requ ested Visits Authorized [id number] Closed 05/26/2019 05/25/2020 1 1 Encounter Details Date Type Department Care Team Description 09/30/2019 Hospital Encounter [facility] Rupesh Grullon Vi sit for screening [facility] Breast MD mammogram Center [address] [place] [address] [place] [address], [address] [place] [address] [place] [address] Social History Tobacco Use Types Packs/Day Years [...] Associated Diagnosis Comme nts MA SCREENING Routine 09/30/2019 9:07 AM Visit for screening Re sults for this BILATERAL W/ BUCK CDT mammogram procedure are in the results section. documented in this encounter Results MA Screen Bilateral w/Buck (09/30/2019 9:07 AM CDT) Anatomical Region Laterality Modality Breast Bilateral Mammography Specimen (Source) Anatomical Location Collection Method / Collectio n Time Received Time / Laterality Volume Impressions 09/30/2019 10:01 AM CDT IMPRESSION: BI-RADS CATEGORY: 1 - ??Negative RECOMMENDED FOLLOW-UP: Annual Mammograph y. Exam results letter mailed to patient. SARAH HOGUE MD Narrative 09/30/2019 10:01 AM CDT SCREENING MAMMOGRAM, BILATERAL, DIGITAL w/CAD and TOMOSYNTHESIS - 09/30/2019 9:07 AM BREAST SYMPTOMS: No current breast compl aints. COMPARISON: ??06/06/2018, 06/03/2017, 05/02, 07/15/2013. BREAST DENSITY: Heterogeneously dense. COMMENTS: No findings of suspicion for m alignancy. Procedure Note Sarah Hogue MD - 09/30/2019F ormatting of this note might be different from the original. SCREENING MAMMOGRAM, BILATERAL, DIGITAL w/CAD and TOMOSYNTHESIS - 09/30/2019 9:07 AM BREAST SYMPTOMS: No current breast compl aints. COMPARISON: 06/06/2018, 06/03/2017, 017, 07/15/2013. BREAST DENSITY: Heterogeneously dense. COMMENTS: No findings of suspicion for m alignancy. IMPRESSION: BI-RADS CATEGORY: 1 - Negati ve RECOMMENDED FOLLOW-UP: Annual Mammograph y. Exam results letter mailed to patient. SARAH HOGUE MD Rupesh Grullon MD IMG MAMMOGRAPHY ORDERABLES documented in this encounter Visit Diagnoses Diagnosis Visit for screening mammogram Other screening mammogram documented in this encounter Care Teams Bill Collector Relationship Specialty Start Date End Date Rupesh Grullon MD PCP - General Internal Medicine 04/03/10 Rupesh Grullon MD Assigned PCP 10/07/16 [address] [place], [place] [address] documented as of this encounter
--- OUTSIDE RECORDS SUMMARY | 2021-12-16 09:43 | XMS_ITS | Encounter Summary ---
:1955 Author Organization [place] Address [facility] [facility] 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 documented as of this encounter Miscellaneous Notes Telephone Encounter - Lindsey Carrera RN - 03/28/2021 12:03 PM CST Pt calling back and was looking over DEXA scan results and is wondering if the difference in the scanners is truly significant or not? Advised nurse cannot answer her question and to schedule appt withDr. Grullon. Will call back to schedule an appt with Dr. Grullon to discuss the results since she did not have her calendar in front of her and she was driving. Lindsey Sanchez RN EP Triage [employer] Telephone Encounter - Inga Lobato - 02/10/2021 10:06 AM CST Reason for Call: Other call back Detailed comments: Patient is requesting referral for DEXA scan. Phone Number Patient can be reached at: Home number on file [phone] (home) Best Time: any Can we leave a detailed message on this number? YES Call taken on 02/10/2021 at 10:07 AM by Inga Lobato [employer] documented in this encounter Plan of Treatment Not on filedocumented as of this encounter Visit Diagnoses Not on filedocumented in this encounter Care Teams Dining Room Hostess Relationship Specialty Start Date End Date Rupesh Grullon MD PCP - General Internal Medicine 04/03/10 Rupesh Grullon MD Assigned PCP 10/07/16 [address] [place] [place] [address] Jhonatan Butcher, Assigned Musculoskeletal 01/01/20 02/25/21 DPM Provider [address] [place] [address] documented as of this encounter
--- OUTSIDE RECORDS SUMMARY | 2021-12-16 09:43 | XMS_ITS | Encounter Summary ---
:1955 Author Organization [place] Address [facility] [place] [address] Care Team Providers Name Role Phone Rupesh Grullon MD Primary Care Provider Rupesh Grullon MD Unavailable Reason for Visit Diagnostic Imaging XR (Routine) - Closed Specialty Diagnoses / Procedures Referred By Contact Refer red To Contact Diagnoses Primary osteoarthritis of left foot Left foot pain Plantar fascial fibromatosis [facility] Jhonatan Butcher DPM Procedures XR Foot Left G/E 3 Views [address] [place] [address] Referral ID Status Reason Start Date Expiration Date Visits Requ ested Visits Authorized [id number] Closed 08/25/2019 08/24/2020 1 1 Encounter Details Date Type Department Care Team Description 08/25/2019 Ancillary [facility] Jhonatan Butcher ry osteoarthritis of left foot; Procedure Clinic Monet Cadet DPM Left foot pain; [address] [facility] [address] [place] [address] fascial fibromatosis; [facility] [place] [address] [address] Social History Tobacco Use Types Packs/Day Years [...] Name Priority Date/Time Associated Diagnosis Comme nts XR FOOT LEFT G/E 3 Routine 08/25/2019 2:59 PM Primary osteoart hritis Results for this VIEWS CDT of left foot procedure are in Left foot pain the results Plantar fascial section. fibromatosis High arch documented in this encounter Results XR Foot Left G/E 3 Views (08/25/2019 2:59 PM CDT) Anatomical Region Laterality Modality Foot, Ankle Left Computed Radiography Specimen (Source) Anatomical Location Collection Method / Collectio n Time Received Time / Laterality Volume Impressions 08/25/2019 3:58 PM CDT IMPRESSION: Normal joint spaces and alignment. No fracture. No abnormal soft tissue calcifications. JOSE LUIS SANCHEZ MD Narrative 08/25/2019 3:58 PM CDT XR FOOT LT G/E 3 VW 08/25/2019 2:59 PM HISTORY: Primary osteoarthritis of left foot; Left foot pain; Plantar fascial fibromatosis; High arch COMPARISON: None. Procedure Note Jose Luis Sanchez MD - 08/25/2019 XR FOOT LT G/E 3 VW 08/25/2019 2:59 PM HISTORY: Primary osteoarthritis of left foot; Left foot pain; Plantar fascial fibromatosis; High arch COMPARISON: None. IMPRESSION: Normal joint spaces and alig nment. No fracture. No abnormal soft tissue calcifications. 

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
--- OUTSIDE RECORDS SUMMARY | 2021-12-16 09:43 | XMS_ITS | Encounter Summary ---
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 documented as of this encounter Plan of Treatment Not on filedocumented as of this encounter Visit Diagnoses Not on filedocumented in this encounter Care Teams Senior Erp Consultant Relationship Specialty Start Date End Date Rupesh Grullon MD PCP - General Internal Medicine 04/03/10 Rupesh Grullon MD Assigned PCP 10/07/16 [address] [place], [place] [address] documented as of this encounter
--- OUTSIDE RECORDS SUMMARY | 2021-12-16 09:43 | XMS_ITS | Encounter Summary ---
:1955 Author Organization [facility] Address [address] [place] [address] Care Team Providers Name Role Phone Rupesh Grullon MD Primary Care Provider Rupesh Grullon MD Unavailable Encounter Details Date Type Department Care Team Description 01/23/2019 Telephone [facility] [address] [facility] [address] [address] [address] [place] [address] [place] [phone] Social History Tobacco Use Types Packs/Day Years [...] Telephone Encounter - James Mc MD - 01/23/2019 1:05 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 Reassurance, no arthritis or insufficiency fracturedespite known osteoporosis. There is some findings regarding lumbar degenerative disc disease, and this may be the etiology. Physical therapy for hip and back offered, await patient's decision on how to proceed. RVISOR MOLDING documented in this encounter Plan of Treatment Not on filedocumented as of this encounter Visit Diagnoses Not on filedocumented in this encounter Care Teams Communications Writer Relationship Specialty Start Date End Date Rupesh Grullon MD PCP - General Internal Medicine 04/03/10 Rupesh Grullon MD Assigned PCP 10/07/16 [address] [address] documented as of this encounter
--- OUTSIDE RECORDS SUMMARY | 2021-12-16 09:44 | XMS_ITS | Encounter Summary ---
:1955 Author Organization [facility] Address [address] [place] [address] Care Team Providers Name Role Phone Rupesh Grullon MD Primary Care Provider Rupesh Grullon MD Unavailable Encounter Details Date Type Department Care Team Description 01/08/2019 Travel Social History Tobacco Use Types Packs/Day [...] on filedocumented in this encounter Care Teams Retirement Manager Relationship Specialty Start Date End Date Rupesh Grullon MD PCP - General Internal Medicine 04/03/10 Rupesh Grullon MD Assigned PCP 10/07/16 [address] [address] documented as of this encounter
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
--- OUTSIDE RECORDS SUMMARY | 2021-12-16 09:44 | XMS_ITS | Encounter Summary ---
:1955 Author Organization [place] Address [facility] [place] [address] Care Team Providers Name Role Phone Rupesh Grullon MD Primary Care Provider Rupesh Grullon MD Unavailable Rupesh Grullon MD Unavailable Reason for Referral Diagnostic Imaging Dexa - Closed Specialty Diagnoses / Procedures Referred By Contact Refer red To Contact Radiology. Diagnoses Symptomatic states associated with artificial menopause Rupesh Grullon MD Dexascan Procedures DX Hip/Pelvis/Spine [address] [place] [address] [address] [place] [address] [place] [address] Fax: Referral ID Status Reason Start Date Expiration Date Visits Requ ested Visits Authorized [id number] Closed 01/06/2018 01/06/2019 1 1 Reason for Visit Diagnostic Imaging Dexa - Closed Specialty Diagnoses / Procedures Referred By Contact Refer red To Contact Radiology. Diagnoses Symptomatic states associated with artificial menopause Rupesh Grullon MD Dexascan Procedures DX Hip/Pelvis/Spine [address] [facility] [address] [place] [address] [place] [address] Fax: Referral ID Status Reason Start Date Expiration Date Visits Requ ested Visits Authorized [id number] Closed 01/06/2018 01/06/2019 1 1 Encounter Details Date Type Department Care Team Description 01/10/2018 Hospital Encounter [facility]upesh Grullon, [facility] Merritt Paez MD associated with [address] artifi cia menopause [place] [address] [place] [address] [place] [address] Social History Tobacco Use [...] on file documented as of this encounter Medications at Time of Discharge Medication Sig Dispensed Refills Start Date End Date NO ACTIVE MEDICATIONS 0 04/03/2010 documented as of this encounter Plan of Treatment Not on filedocumented as of this encounter Procedures Procedure Name Priority Date/Time Associated Diagnosis Comme nts DX HIP/PELVIS/SPINE Routine 01/10/2018 11:[address] ates Results for this CDT associated with procedure ar e in artificial menopause the res ults section. documented in this encounter Results DX Hip/Pelvis/Spine (01/10/2018 11:16 AM CDT) Anatomical Region Laterality Modality Dexa Bone Mineral Density Specimen (Source) Anatomical Location Collection Method / Collectio n Time Received Time / Laterality Volume Impressions 01/10/2018 11:46 AM CDT IMPRESSION: 1. Moderate osteoporosis of the lumbar s pine, advanced osteopenia of the left hip, and moderate osteopenia of the right hip. 2. The probability of major osteoporotic fracture is 20.8 percent and probability of hip fracture is 1.9 perce nt within the next 10 years according to FRAX risk assessment. SATURNINO CUI MD Narrative 01/10/2018 11:46 AM CDT DXA BONE MINERAL DENSITY SCAN ?? 01/10/2018 11:16 AM TECHNIQUE: The lumbar spine and both hip s were scanned with DXA technique performed using a [employer] scanner. DXA results are reported according to T-score. The T-sco re is the standard deviation from the peak bone mass in a normal loraine g adult patient. A T-score of -1.0 to -2.5 correlates with osteopenia. A T-score of less than -2.5 correlates with osteoporosis. In accordance with the ISCD (Internation al Society of Clinical Densitometry) the lowest BMD between the total hip and femoral neck will be used. All treatment decisions require clinical judgment and consideration of individual patient factors which may not be captured in the FRAX model and the risk of fracture may be over- or under-estimated by FRAX. INDICATION: Screening. COMPARISON: None. FINDINGS: Lumbar spine: The T-score is -3.3 from L 1 to L4. Hips: The left hip femoral neck T-score is -2.3. The right hip femoral neck T-score is -1.8. Bone mineral densi ty in the worst hip is 0.724 gm/cm2. Procedure Note Saturnino Cui MD - 01/10/2018Fo rmatting of this note might be different from the original. DXA BONE MINERAL DENSITY SCAN 01/10/2018 11:16 AM TECHNIQUE: The lumbar spine and both hip s were scanned with DXA technique performed using a Sympt[employer] digy scanner. DXA results are reported according to T-score. The T-sco re is the standard deviation from the peak bone mass in a normal loraine g adult patient. A T-score of -1.0 to -2.5 correlates with osteopenia. A T-score of less than -2.5 correlates with osteoporosis. In accordance with the ISCD (Internation al Society of Clinical Densitometry) the lowest BMD between the total hip and femoral neck will be used. All treatment decisions require clinical judgment and consideration of individual patient factors which may not be captured in the FRAX model and the risk of fracture may be over- or under-estimated by FRAX. INDICATION: Screening. COMPARISON: None. FINDINGS: Lumbar spine: The T-score is -3.3 from L 1 to L4. Hips: The left hip femoral neck T-score is -2.3. The right hip femoral neck T-score is -1.8. Bone mineral densi ty in the worst hip is 0.724 gm/cm2. IMPRESSION: 1. Moderate osteoporosis of the lumbar s pine, advanced osteopenia of the left hip, and moderate osteopenia of the right hip. 2. The probability of major osteoporotic fracture is 20.8 percent and probability of hip fracture is 1.9 perce nt within the next 10 years according to FRAX risk assessment. SATURNINO CUI MD Rupesh Grullon MD IMG DEXA ORDERABLES documented in this encounter Visit Diagnoses Diagnosis Symptomatic states associated with artif icial menopause documented in this encounter Care Teams Email Production Specialist Relationship Specialty Start Date End Date Rupesh Grullon MD PCP - General Internal Medicine 04/03/10 Rupesh Grullon MD PCP - Assigned PCP 10/07/16 05/13/18 [address] [place] [id number] Rupesh Grullon MD Assigned PCP 10/07/16 [address] [place] [address] documented as of this encounter
--- OUTSIDE RECORDS SUMMARY | 2021-12-16 09:44 | XMS_ITS | Encounter Summary ---
:1955 Author Organization [place] Address [address] [place] [address] Care Team Providers Name Role Phone Rupesh Grullon MD Primary Care Provider Rupesh Grullon MD Unavailable Reason for Visit Diagnostic Imaging XR (Routine) - Closed Specialty Diagnoses / Procedures Referred By Contact Refer red To Contact Diagnoses Hip pain, acute, left James Mc, Procedures XR Pelvis and Hip Left 1 View [place] [address] [place] [address] Referral ID Status Reason Start Date Expiration Date Visits Requ ested Visits Authorized [id number] Closed 01/16/2019 01/16/2020 1 1 Encounter Details Date Type Department Care Team Description 01/16/2019 Ancillary [facility] James Mc Hip juan m n, acute, Procedure Clinic Chica Hendrickson MD left [address] [facility] [address] [place] [address] [phone] Social History Tobacco Use Types Packs/Day Years [...] Priority Date/Time Associated Diagnosis Comme nts XR PELVIS AND HIP Routine 01/16/2019 8:54 AM Hip pain, acute, Results for this LEFT 1 VIEW CERTIFIED PHLEBOTOMY TECHNICIAN left procedure are i n the results section. documented in this encounter Results XR Pelvis and Hip Left 1 View (01/16/2019 8:54 AM CERTIFIED PHLEBOTOMY TECHNICIAN) Anatomical Region Laterality Modality Abdomen/Pelvis Left Computed Radiography Specimen (Source) Anatomical Location Collection Method / Collectio n Time Received Time / Laterality Volume Impressions 01/16/2019 9:37 AM CERTIFIED PHLEBOTOMY TECHNICIAN IMPRESSION: ??Unremarkable examination. SATURNINO CUI MD Narrative 01/16/2019 9:37 AM CERTIFIED PHLEBOTOMY TECHNICIAN PELVIS AND LEFT HIP ONE VIEW ??01/16/2019 8:54 AM HISTORY: ??Acute left hip pain. COMPARISON: ??None. FINDINGS: ??No fracture or osseous lesio n is seen. The joint spaces are well preserved. No soft tissue pathology is seen. ?? Procedure Note Saturnino Cui MD - 01/16/2019Fo rmatting of this note might be different from the original. PELVIS AND LEFT HIP ONE VIEW 01/16/2019 8 :54 AM HISTORY: Acute left hip pain. COMPARISON: None. FINDINGS: No fracture or osseous lesion is seen. The joint spaces are well preserved. No soft tissue pathology is seen. IMPRESSION: Unremarkable examination. SATURNINO CUI MD James Mc MD IMG DIAGNOSTIC IMAGING ORDER MIGUELANGEL documented in this encounter Visit Diagnoses Diagnosis Hip pain, acute, left documented in this encounter Care Teams Spool Cleaner Relationship Specialty Start Date End Date Rupesh Grullon MD PCP - General Internal Medicine 04/03/10 Rupesh Grullon MD Assigned PCP 10/07/16 [address] [facility] [address] [place] [address] documented as of this encounter
--- OUTSIDE RECORDS SUMMARY | 2021-12-16 09:44 | XMS_ITS | Encounter Summary ---
:1955 Author Organization [place] Address [address] [place] [address] Care Team Providers Name Role Phone Rupesh Grullon MD Primary Care Provider Rupesh Grullon MD Unavailable Reason for Visit Diagnostic Imaging XR - Closed Specialty Diagnoses / Procedures Referred By Contact Refer red To Contact Diagnoses Toe injury, right, initial encounter Nitesh West, Procedures XR Toe Right G/E 2 Views [address] [place] [address] 0 Referral ID Status Reason Start Date Expiration Date Visits Requ ested Visits Authorized [id number] Closed 06/01/2018 06/01/2019 1 1 Encounter Details Date Type Department Care Team Description 06/01/2018 Ancillary Procedure [facility] [place] [facility] [address] [place] [id number] [phone] Social History Tobacco Use Types Packs/Day Years [...] Priority Date/Time Associated Diagnosis Comme nts XR TOE RIGHT G/E 2 STAT 06/01/2018 10:28 AM Toe injury, rig ht, Results for this VIEWS CDT initial encounter procedure are in the results section. documented in this encounter Results XR Toe Right G/E 2 Views (06/01/2018 10:28 AM CDT) Anatomical Region Laterality Modality Foot, Right Foot Right Computed Radiography Specimen (Source) Anatomical Location Collection Method / Collectio n Time Received Time / Laterality Volume Impressions 06/01/2018 10:39 AM CDT IMPRESSION: Minimally displaced fracture at the dorsal base of the RIGHT second distal phalanx. This is see n on the lateral radiograph. No other fractures are seen. SUDHAKAR COLON MD Narrative 06/01/2018 10:39 AM CDT XR TOE RIGHT G/E 2 VIEWS 06/01/2018 10:28 AM COMPARISON: None. HISTORY: RIGHT toe injury. Procedure Note Sudhakar Colon MD - 06/01/2018 XR TOE RIGHT G/E 2 VIEWS 06/01/2018 10:28 AM COMPARISON: None. HISTORY: RIGHT toe injury. IMPRESSION: Minimally displaced fracture at the dorsal base of the RIGHT second distal phalanx. This is see n on the lateral radiograph. No other fractures are seen. SUDHAKAR COLON MD Nitesh West DO IMHari DIAGNOSTIC IMAGING ORDER MIGUELANGEL documented in this encounter Visit Diagnoses Not on filedocumented in this encounter Care Teams Workers Compensation Claims Specialist Relationship Specialty Start Date End Date Rupesh Grullon MD PCP - General Internal Medicine 04/03/10 Rupesh Grullon MD Assigned PCP 10/07/16 [address] [place], [place] [address] documented as of this encounter
--- OUTSIDE RECORDS SUMMARY | 2021-12-16 09:44 | XMS_ITS | Encounter Summary ---
:1955 Author Organization [place] Address [facility] [place] [address] Care Team Providers Name Role Phone Rupesh Grullon MD Primary Care Provider Rupesh Grullon MD Unavailable Reason for Referral Diagnostic Imaging MRI (Routine) - Closed Specialty Diagnoses / Procedures Referred By Contact Refer red To Contact Radiology. Diagnoses Hip pain, acute, left Age-related osteoporosis without current pathological fracture Jamse Mc Mri Procedures MR Hip Left w/o Contrast MD Emeka [address] [place] [phone] [place] [address] Referral ID Status Reason Start Date Expiration Date Visits Requ ested Visits Authorized [id number] Closed 01/16/2019 01/16/2020 1 1 INSTRUCTOR Reason for Visit Diagnostic Imaging MRI (Routine) - Closed Specialty Diagnoses / Procedures Referred By Contact Refer red To Contact Radiology. Diagnoses Hip pain, acute, left Age-related osteoporosis without current pathological fracture James Mc Mri Procedures MR Hip Left w/o Contrast MD Emeka [address] [place] [phone] [place] [address] Referral ID Status Reason Start Date Expiration Date Visits Requ ested Visits Authorized [id number] Closed 01/16/2019 01/16/2020 1 1 Encounter Details Date Type Department Care Team Description 01/18/2019 Hospital Encounter [facility] James Mc ip pain, acute, left; Merritt Hendrickson MD Age-related osteoporosis without current pathological fracture [address] [place] [address] [facility] [address] [place] [phone] [id number] Social History Tobacco Use Types Packs/Day Years [...] Dispensed Refills Start Date End Date cyclobenzaprine Take 1 tablet (10 20 tablet 1 01/08/2019 (FLEXERIL) 10 MG mg) by mouth 2 times tabletIndications: Strain daily as needed for of left hamstring muscle, muscle spasms initial encounter CAUTION: May cause drowsiness NO ACTIVE MEDICATIONS 0 04/03/2010 acetaminophen-codeine Take 1 tablet by 14 tablet 0 01/09/20 19 01/22/2019 (TYLENOL #3) 300-30 MG mouth 2 times daily tabletIndications: Strain as needed for severe of left hamstring muscle, pain CAUTION: may initial encounter cause drowsiness naproxen (NAPROSYN) 500 Take 1 tablet (500 30 tablet 0 12/1101/22/2019 MG tabletIndications: mg) by mouth 2 times Strain of left hamstring daily (with meals) muscle, initial encounter documented as of this encounter Plan of Treatment Not on filedocumented as of this encounter Procedures Procedure Name Priority Date/Time Associated Diagnosis Comme nts MR HIP LEFT W/O Routine 01/18/2019 7:50 AM Hip pain, acu te, left Results for this CONTRAST EMS INSTRUCTOR Age-related procedure are i n osteoporosis without the res ults current pathological section . fracture documented in this encounter Results MR Hip Left w/o Contrast (01/18/2019 7:50 AM EMS INSTRUCTOR) Anatomical Region Laterality Modality Left Hip, SUBRAD MR MSK, UMP MR MSK, RAD MR Magnetic Resonance Specimen (Source) Anatomical Location Collection Method / Collectio n Time Received Time / Laterality Volume Impressions 01/18/2019 11:00 AM EMS INSTRUCTOR IMPRESSION: 1. Mild degenerative changes in the righ t SI joint and moderate degenerative changes in the left SI join t. 2. Degenerative changes in the lower lum bar spine. 3. Otherwise negative. There is no evide nce of fracture or stress reaction. KAREN HOU MD Narrative 01/18/2019 11:00 AM EMS INSTRUCTOR MR LEFT HIP WITHOUT CONTRAST ?? 01/18/2019 7:50 AM HISTORY: Acute hip pain, osteoporosis, e valuate for insufficiency fracture. Hip pain, acute, left. Age-rel ated osteoporosis without current pathological fracture. The patie nt describes bilateral leg pain. TECHNIQUE: ??Coronal T1 and inversion re covery, sagittal T1, and transverse proton density and fat suppre ssed T2 weighted images. COMPARISON: Radiographs from 01/16/2019. FINDINGS: Osseous and Cartilaginous Structures: ?? Mild degenerative changes in the right SI joint. Moderate degenerativ e changes in the left SI joint. Mild marrow edema adjacent to the left SI joint. Mild degenerative changes in the lower lumbar spine. The pubic symphysis and hips appear normal and symmetric. Th ere is no evidence of fracture or osteonecrosis. Nothing to suggest str ess reaction or stress fracture. No osseous lesion. Acetabular Labrum: No juxtaacetabular cy st. ??No obvious labral tear is appreciated, allowing for the large FOV technique. ??If indicated clinically, MR arthrography would be con sidered the study of choice in this regard. Common Hamstring Tendon: Intact. Gluteal Tendon Greater Trochanteric Shahab chments: The gluteus medius and minimus tendons appear within normal limits and symmetrical. Trochanteric and Iliopsoas Bursae: No fl uid collection in the trochanteric and iliopsoas bursae. Joint space: No joint effusion. Procedure Note Karen Hou MD - 01/18/2019Form atting of this note might be different from the original. MR LEFT HIP WITHOUT CONTRAST 01/18/2019 7:50 AM HISTORY: Acute hip pain, osteoporosis, e valuate for insufficiency fracture. Hip pain, acute, left. Age-rel ated osteoporosis without current pathological fracture. The patie nt describes bilateral leg pain. TECHNIQUE: Coronal T1 and inversion julio very, sagittal T1, and transverse proton density and fat suppre ssed T2 weighted images. COMPARISON: Radiographs from 01/16/2019. FINDINGS: Osseous and Cartilaginous Structures: Mi ld degenerative changes in the right SI joint. Moderate degenerativ e changes in the left SI joint. Mild marrow edema adjacent to the left SI joint. Mild degenerative changes in the lower lumbar spine. The pubic symphysis and hips appear normal and symmetric. Th ere is no evidence of fracture or osteonecrosis. Nothing to suggest str ess reaction or stress fracture. No osseous lesion. Acetabular Labrum: No juxtaacetabular cy st. No obvious labral tear is appreciated, allowing for the large FOV technique. If indicated clinically, MR arthrography would be con sidered the study of choice in this regard. Common Hamstring Tendon: Intact. Gluteal Tendon Greater Trochanteric Shahab chments: The gluteus medius and minimus tendons appear within normal limits and symmetrical. Trochanteric and Iliopsoas Bursae: No fl uid collection in the trochanteric and iliopsoas bursae. Joint space: No joint effusion. IMPRESSION: 1. Mild degenerative changes in the righ t SI joint and moderate degenerative changes in the left SI join t. 2. Degenerative changes in the lower lum bar spine. 3. Otherwise negative. There is no evide nce of fracture or stress reaction. KAREN HOU MD James Emeka Mc MD IMG MRI ORDERABLES documented in this encounter Visit Diagnoses Diagnosis Hip pain, acute, left Age-related osteoporosis without current pathological fracture Senile osteoporosis documented in this encounter Care Teams International Bank Manager Relationship Specialty Start Date End Date Rupesh Grullon MD PCP - General Internal Medicine 04/03/10 Rupesh Grullon MD Assigned PCP 10/07/16 [address] [place], [place] [address] documented as of this encounter
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
--- OUTSIDE RECORDS SUMMARY | 2021-12-16 09:44 | XMS_ITS | Encounter Summary ---
:1955 Author Organization [place] Address [address] [place] [address] Care Team Providers Name Role Phone Rupesh Grullon MD Primary Care Provider Rupesh Grullon MD Unavailable Reason for Referral Diagnostic Imaging Dexa (Routine) - Closed Specialty Diagnoses / Procedures Referred By Contact Refer red To Contact Radiology. Diagnoses Age-related osteoporosis without current pathological fracture Rupesh Grullon MD [facility] Procedures DX Hip/Pelvis/Spine [address] [place] [address] Phone: Fax: Referral ID Status Reason Start Date Expiration Date Visits Requ ested Visits Authorized [id number] Closed 12/25/2018 12/25/2019 1 1 Reason for Visit Diagnostic Imaging Dexa (Routine) - Closed Specialty Diagnoses / Procedures Referred By Contact Refer red To Contact Radiology. Diagnoses Age-related osteoporosis without current pathological fracture Rupesh Grullon MD Sh [facility] Procedures DX Hip/Pelvis/Spine [address] [facility] [address] [id number] [address] [place] [address] Phone: Fax: Referral ID Status Reason Start Date Expiration Date Visits Requ ested Visits Authorized [id number] Closed 12/25/2018 12/25/2019 1 1 Encounter Details Date Type Department Care Team Description 12/31/2018 Hospital Encounter [facility] Yadi, Rupesh, Ag e-related [place] [facility] osteoporosis without [address] [facility] GIRMA hernandez t pathological [place] [address] fracture [address] [place] [address] [place] [phone] [address] (Work) [phone] Social History Tobacco Use Types Packs/Day Years [...] Associated Diagnosis Comme nts DX HIP/PELVIS/SPINE Routine 12/31/2018 8:56 AM Age-related Re sults for this CDT osteoporosis without procedu re are in current pathological the res ults fracture section. documented in this encounter Results DX Hip/Pelvis/Spine (12/31/2018 8:56 AM CDT) Anatomical Region Laterality Modality Dexa Bone Mineral Density Specimen (Source) Anatomical Location Collection Method / Collectio n Time Received Time / Laterality Volume Impressions 12/31/2018 8:57 AM CDT IMPRESSION: Lumbar spine osteoporosis. Bilateral hip osteopenia. SHASHI GARCIA MD Narrative 12/31/2018 8:57 AM CDT DX HIP/PELVIS/SPINE ??12/31/2018 8:56 AM HISTORY: ??osteoporosis; Age-related ost eoporosis without current pathological fracture FINDINGS: This DEXA scan was performed u sing a [employer] iDXA scanner. DEXA results are reported according to T -score. ??The T-score is the standard deviation from the peak bone ma ss in a normal young adult population. ??In accordance with the ISC D (International Society of Clinical Densitometry), the lower of the total proximal femur vs femoral neck T-score is reported. ??Oste openia is defined as a T-score of -1.0 to -2.5. ??Osteoporosis is defin ed as a T-score of less than -2.5. T-SCORES: Lumbar Spine L1-L4 T-score: -2.9 Left Hip (Neck) T-score: -2.1 Right Hip (Neck) T-score: -2.1 Hip lowest neck BMD: 0.750 gm/cm2. PERCENT CHANGE since 01/10/2018: Lumbar Spine: Increased significantly by 6.7% Femurs: Not significantly changed, 0.9% FRAX 10-YEAR PROBABILITY OF FRACTURE*: Major Osteoporotic: 20% Hip: 2% *All treatment decisions require clinica l judgment and consideration of individual patient factors which may not be captured in the FRAX model and the risk of fracture may be ov er- or under-estimated by FRAX. Procedure Note Shashi Garcia MD - 12/31/2018Formatt ing of this note might be different from the original. DX HIP/PELVIS/SPINE 12/31/2018 8:56 AM HISTORY: osteoporosis; Age-related osteo porosis without current pathological fracture FINDINGS: This DEXA scan was performed u sing a [employer] iDXA scanner. DEXA results are reported according to T -score. The T-score is the standard deviation from the peak bone ma ss in a normal young adult population. In accordance with the ISCD (International Society of Clinical Densitometry), the lower of the total proximal femur vs femoral neck T-score is reported. Osteop enia is defined as a T-score of -1.0 to -2.5. Osteoporosis is defined as a T-score of less than -2.5. T-SCORES: Lumbar Spine L1-L4 T-score: -2.9 Left Hip (Neck) T-score: -2.1 Right Hip (Neck) T-score: -2.1 Hip lowest neck BMD: 0.750 gm/cm2. PERCENT CHANGE since 01/10/2018: Lumbar Spine: Increased significantly by 6.7% Femurs: Not significantly changed, 0.9% FRAX 10-YEAR PROBABILITY OF FRACTURE*: Major Osteoporotic: 20% Hip: 2% *All treatment decisions require clinica l judgment and consideration of individual patient factors which may not be captured in the FRAX model and the risk of fracture may be ov er- or under-estimated by FRAX. IMPRESSION: Lumbar spine osteoporosis. B ilateral hip osteopenia. SHASHI GARCIA MD Rupesh Grullon MD IMG DEXA ORDERABLES documented in this encounter Visit Diagnoses Diagnosis Age-related osteoporosis without current pathological fracture Senile osteoporosis documented in this encounter Care Teams Lumber Chain Offbearer Relationship Specialty Start Date End Date Rupesh Grullon MD PCP - General Internal Medicine 04/03/10 Rupesh Grullon MD Assigned PCP 10/07/16 [address] [place], [place] [address] documented as of this encounter
--- OUTSIDE RECORDS SUMMARY | 2021-12-16 09:44 | XMS_ITS | Encounter Summary ---
:1955 Author Organization [place] Address [facility] [place] [address] Care Team Providers Name Role Phone Rupesh Grullon MD Primary Care Provider Rupesh Grullon MD Unavailable Rupesh Grullon MD Unavailable Reason for Referral Diagnostic Imaging Dexa - Closed Specialty Diagnoses / Procedures Referred By Contact Refer red To Contact Radiology. Diagnoses Symptomatic states associated with artificial menopause Rupesh Grullon MD Dexascan Procedures DX Hip/Pelvis/Spine [address] [facility] [address] [address] [address] [place] [address] [place] [address] Fax: Referral ID Status Reason Start Date Expiration Date Visits Requ ested Visits Authorized [id number] Closed 01/06/2018 01/06/2019 1 1 Reason for Visit Reason Comments Physical Not fasting Encounter Details Date Type Department Care Team Description 01/06/2018 Office Visit [facility] Rupesh Grullon, Routine general medical examination at a health care facility (Primary Dx); [facility] Hyperlipidemia LDL goal <130; [address] [facility] Symptomat ic states associated with artificial menopause; [place], [address] Urinary incontinence, unspecified type; [place] [address] [place] [address] Need for hepatitis C screening test; [phone] Screening for H IV (human immunodeficiency virus) (Work) Social History Tobacco Use Types Packs/Day Years [...] Sign Reading Time Taken Comments Blood Pressure 123/78 01/06/2018 10:06 AM CDT Pulse 64 01/06/2018 10:06 AM CDT Temperature 36.1 ??C (96.9 ??F) 01/06/2018 10:06 AM CDT Respiratory Rate - - Oxygen Saturation 98% 01/06/2018 10:06 AM CDT Inhaled Oxygen Concentration - - Weight 69.9 kg (154 lb) 01/06/2018 10:06 AM CDT Height 167.6 cm (5' 6) 01/06/2018 10:06 AM CDT Body Mass Index 24.86 01/06/2018 10:06 AM CDT documented in this encounter Patient Instructions Patient InstructionsTesha Marte, GRIEVANCE MANAGER - 01/06/2018 8:45 AM CDT Preventive Health Recommendations Female Ages 50 - 64 Yearly exam: See your health care provider every year in order to o Review health changes. o Discuss preventive care. o Review your medicines if your doctor has prescribed any. ??? Get a Pap test every three years (unless you have an abnormal result and your provider advises testing more often). ??? If you get Pap tests with HPV test, you only need to test every 5 years, unless you have an abnormal result. ??? You do not need a Pap test if your uterus was removed (hysterectomy) and you have not had cancer. ??? You should be tested each year for STDs (sexually transmitted diseases) if you're at risk. ??? Have a mammogram every 1 to 2 years. ??? Have a colonoscopy at age 50, or have a yearly FIT test (stool test). These exams screen for colon cancer. ??? Have a cholesterol test every 5 years, or more often if advised. ??? Have a diabetes test (fasting glucose) every three years. If you are at risk for diabetes, you should have this test more often. ??? If you are at risk for osteoporosis (brittle bone disease), think about having a bone density scan (DEXA). Shots: Get a flu shot each year. Get a tetanus shot every 10 years. Nutrition: ??? Eat at least 5 servings of fruits and vegetables each day. ??? Eat whole-grain bread, whole-wheat pasta and brown rice instead of white grains and rice. ??? Get adequate Calcium and Vitamin D. Lifestyle ??? Exercise at least 150 minutes a week (30 minutes a day, 5 days a week). This will help you control your weight and prevent disease. ??? Limit alcohol to one drink per day. ??? No smoking. ??? Wear sunscreen to prevent skin cancer. ??? See your dentist every six months for an exam and cleaning. ??? See your eye doctor every 1 to 2 years. documented in this encounter Progress Notes Rupesh Grullon MD - 01/06/2018 8:45 AM CDT SUBJECTIVE: CC: Nadia Espino is an 62 year old woman who presents for preventive health visit. Healthy Habits: ?? Do you get at least three servings of calcium containing foods daily (dairy, green leafy vegetables, etc.)? yes ?? Amount of exercise or daily activities, outside of work: 6 day(s) per week ?? Problems taking medications regularly No ?? Medication side effects: No ?? Have you had an eye exam in the past two years? no ?? Do you see a dentist twice per year? yes ?? Do you have sleep apnea, excessive snoring or daytime drowsiness?no Patient had pneumonia this year in May She is doing well She does not smoke No chest pain or shortness of breath Today's PHQ-2 Score: PHQ-2 (??1999 Pfizer) 01/06/2018 05/28/2017 Q1: Little interest or pleasure in doing things 0 0 Q2: Feeling down, depressed or hopeless 0 0 PHQ-2 Score 0 0 Abuse: Current or Past(Physical, Sexual or Emotional)- No Do you feel safe in your environment - Yes Social History Substance Use Topics ??? Smoking status: Never Smoker ??? Smokeless tobacco: Never Used ??? Alcohol use 0.0 oz/week 0 Standard drinks or equivalent per week Comment: 4-5 drinks a week If you drink alcohol do you typically have >3 drinks per day or >7 drinks per week? No Reviewed orders with patient. Reviewed health maintenance and updated orders accordingly - Yes Patient Active Problem List Diagnosis ??? Symptomatic states associated with artificial menopause ??? Incontinence ? ? Hyperlipidemia LDL goal <130 ??? Advanced directives, counseling/discussion ??? Ganglion of left wrist ??? Urinary tract infection Past Surgical History: Procedure Laterality Date ??? HYSTERECTOMY TOTAL ABDOMINAL, BILATERAL SALPINGO-OOPHORECTOMY, COMBINED 2006 ovaries left Social History Substance Use Topics ??? Smoking status: Never Smoker ??? Smokeless tobacco: Never Used ??? Alcohol use 0.0 oz/week 0 Standard drinks or equivalent per week Comment: 4-5 drinks a week Family History Problem Relation Age of Onset ??? GASTROINTESTINAL DISEASE Mother crohn's ??? Diabetes Mother OA also ??? C.A.D. Sister 55, cardiac sx ??? C.A.D. Maternal Grandmother ??? Thyroid Disease Sister evangelista's ??? Thyroid Disease Brother Current Outpatient Prescriptions Medication Sig Dispense Refill ??? NO ACTIVE MEDICATIONS 0 Patient over age 50, mutual decision to screen reflected in health maintenance. Pertinent mammograms are reviewed under the imaging tab. History of abnormal Pap smear: Status post benign hysterectomy. Health Maintenance and Surgical History updated. Reviewed and updated as needed this visit by clinical staff Tobacco Allergies Meds Problems Reviewed and updated as needed this visit by Provider Allergies Meds Problems ROS: 10 point ROS of systems including Constitutional, Eyes, Respiratory, Cardiovascular, Gastroenterology, Genitourinary, Integumentary, Muscularskeletal, Psychiatric were all negative except for pertinentpositives noted in my HPI. OBJECTIVE: BP 123/78 (BP Location: Left arm, Cuff Size: Adult Regular) Pulse 64 Temp 96.9 ??F (36.1 ??C) (Oral) Ht 5' 6 (1.676 m) Wt 154 lb (69.9 kg) SpO2 98% BMI 24.86 kg/m2 EXAM: GENERAL APPEARANCE: healthy, alert and no distress EYES: Eyes grossly normal to inspection, PERRL and conjunctivae and sclerae normal HENT: ear canals and TM's normal, nose and mouth without ulcers or lesions, oropharynx clear and oral mucous membranes moist NECK: no adenopathy, no asymmetry, masses, or scars and thyroid normal to palpation RESP: lungs clear to auscultation - no rales, rhonchi or wheezes BREAST: normal without masses, tenderness or nipple discharge and no palpable axillary masses or adenopathy CV: regular rate and rhythm, normal S1 S2, no S3 or S4, no murmur, click or rub, no peripheral edemaand peripheral pulses strong ABDOMEN: soft, nontender, no hepatosplenomegaly, no masses and bowel sounds normal MS: no musculoskeletal defects are noted and gait is age appropriate without ataxia SKIN: left facial jerri no suspicious lesions or rashes NEURO: Normal strength and tone, sensory exam grossly normal, mentation intact and speech normal PSYCH: mentation appears normal and affect normal/bright ASSESSMENT/PLAN: Nadia was seen today for physical. Diagnoses and all orders for this visit: Routine general medical examination at a health care facility Mammogram done Colon exam in 2009 dexa order in We talked about Shingrix also She will need dental work and will see me in 4 weeks for preop Hyperlipidemia LDL goal <130 - Lipid panel reflex to direct LDL Non-fasting - TSH WITH FREE T4 REFLEX - Comprehensive metabolic panel Symptomatic states associated with artificial menopause - DX Hip/Pelvis/Spine; Future Urinary incontinence, unspecified type Improved with exercise Need for hepatitis C screening test - Hepatitis C Screen Reflex to HCV RNA Quant and Genotype Screening for HIV (human immunodeficiency virus) - HIV Screening COUNSELING: Reviewed preventive health counseling, as reflected in patient instructions Regular exercise Healthy diet/nutrition BP Readings from Last 1 Encounters: 01/06/18 123/78 Estimated body mass index is 24.86 kg/(m^2) as calculated from the following: Height as of this encounter: 5' 6 (1.676 m). Weight as of this encounter: 154 lb (69.9 kg). reports that she has never smoked. She has never used smokeless tobacco. Counseling Resources: ATP IV Guidelines Pooled Cohorts Equation Calculator Breast Cancer Risk Calculator FRAX Risk Assessment ICSI Preventive Guidelines Dietary Guidelines for Americans, 2009 USDA's MyPlate ASA Prophylaxis Lung CA Screening Rupesh Grullon MD [facility] documented in this encounter Nursing Notes Tesha Marte CMA - 01/06/2018 10:00 AM CDT Tesha Marte CMA documented in this encounter Plan of Treatment Not on filedocumented as of this encounter Procedures Procedure Name Priority Date/Time Associated Diagnosis Comme nts HIV ANTIGEN ANTIBODY Routine 01/06/2018 10:25 Screening for HI V Results for this COMBO AM CDT (human immunodeficiency proc edure are in virus) the results section. HEPATITIS C SCREEN Routine 01/06/2018 10:25 Need for hepatitis C Results for this REFLEX TO HCV RNA AM CDT screening test procedur e are in QUANT AND GENOTYPE the resul ts section. TSH WITH FREE T4 Routine 01/06/2018 10:25 Hyperlipidemia LDL g oal Results for this REFLEX AM CDT <130 procedure are i n the results section. LIPID REFLEX TO Routine 01/06/2018 10:25 Hyperlipidemia LDL go al Results for this DIRECT LDL PANEL AM CDT <130 procedure a re in the results section. COMPREHENSIVE Routine 01/06/2018 10:25 Hyperlipidemia LDL goal Results for this METABOLIC PANEL AM CDT <130 procedure ar e in the results section. documented in this encounter Results DX [...] scanned with DXA technique performed using a Cost Effective Data Pro digy scanner. DXA results are reported according [...] scanned with DXA technique performed using a Cost Effective Data Pro digy scanner. DXA results are reported according [...] MD Rupesh Grullon MD IMG DEXA ORDERABLES (ABNORMAL) Comprehensive metabolic panel (01/06/2018 10:25 AM CDT) Analysis Performed At [facility] Time Signature Sodium 143 133 - 144 01/06/2018 [place] mmol/L 5:25 PM CDT [facility] Potassium 4.4 3.4 - 5.3 01/06/2018 [place] mmol/L 5:25 PM CDT [facility] Chloride 107 94 - 109 01/06/2018 [place] mmol/L 5:25 PM CDT [facility] Carbon Dioxide 26 20 - 32 01/06/2018 [place] mmol/L 5:25 PM CDT [facility] Anion Gap 10 3 - 14 01/06/2018 [place] mmol/L 5:25 PM CDT [facility] Glucose 102 (H) 70 - 99 01/06/2018 [place] mg/dL 5:25 PM CDT [facility] Comment: Fasting specimen Urea Nitrogen 25 7 - 30 mg/dL 01/06/2018 5:25 PM CDT [facility] Creatinine 0.70 0.52 - 1.04 mg/dL 01/06/2018 5:25 PM CD T [facility] GFR Estimate 85 >60 mL/min/1.7m2 01/06/2018 5:25 PM C DT [facility] Comment: Non GFR Calc GFR Estimate If >90 >60 mL/min/1.7m2 01/06/2018 5:25 P M [facility] Black [facility] Comment: GFR Calc Calcium 9.8 8.5 - 10.1 01/06/2018 5:25 PM [facility] LINICS mg/dL [facility] Bilirubin Total 0.4 0.2 - 1.3 mg/dL 01/06/2018 5:25 PM [facility] Albumin 4.4 3.4 - 5.0 g/dL 01/06/2018 5:[address] [facility] Protein Total 7.8 6.8 - 8.8 g/dL 01/06/2018 5:25 PM [facility] Alkaline Phosphatase 68 40 - 150 U/L 01/06/2018 5:25 PM [facility] ALT 25 0 - 50 U/L 01/06/2018 5:25 PM [place] [facility] T [facility] AST 20 0 - 45 U/L 01/06/2018 5:25 PM [facility] LINICS T [facility] Specimen Anatomical Collection Method Collection Time Receive d Time (Source) Location / / Volume Laterality Blood specimen 01/06/2018 10:25 8 (specimen) AM CDT 10:26 AM CDT Rupesh Grullon MD LAB - BLOOD ORDERABLES Performing Organization Address City/State/ZIP Code Phon e Number [facility] [address] [place] [address] TSH WITH FREE T4 REFLEX (01/06/2018 10:25 AM CDT) P athologist Signature TSH 0.48 0.40 - 4.00 01/06/2018 [facility] mU/L 5:25 PM CDT [facility] Specimen Anatomical Collection Method Collection Time Receive d Time (Source) Location / / Volume Laterality Blood specimen 01/06/2018 10:25 8 (specimen) AM CDT 10:26 AM CDT Rupesh Grullon MD LAB - BLOOD ORDERABLES Performing Organization Address City/State/ZIP Code Phon e Number [facility] [address] [place] [address] Lipid panel reflex to direct LDL Non-fasting (01/06/2018 10:25 AM CDT) P athologist Signature Cholesterol 187 <200 mg/dL 01/06/2018 [facility] 5:25 PM CDT [facility] Triglycerides 64 <150 mg/dL 01/06/2018 [place] [facility] 5:25 PM CDT [facility] Comment: Fasting specimen HDL Cholesterol 87 >49 mg/dL 01/06/2018 5:[address] [facility] LDL Cholesterol 87 <100 mg/dL 01/06/2018 5:25 PM CDT [facility] Calculated [facility] Comment: Desirable: <100 mg/dl Non HDL Cholesterol 100 <130 mg/dL 01/06/2018 5:25 PM CDT [facility] Specimen Anatomical Collection Method Collection Time Receive d Time (Source) Location / / Volume Laterality Blood specimen 01/06/2018 10:25 8 (specimen) AM CDT 10:26 AM CDT Rupesh Grullon MD LAB - BLOOD ORDERABLES Performing Organization Address City/[facility]/ZIP Code Phon e Number [facility] [address] [place] [address] HIV Screening (01/06/2018 10:25 AM CDT) Patholo gist Method Time Signature HIV Antigen Nonreactive NR^Nonrea 01/07/2018 [facility] ctive 9:43 AM CDT [facility] Comment: HIV-1 p24 Ag & HIV-1/HIV-2 Ab N ot Detected Specimen Anatomical Collection Method Collection Time Receive d Time (Source) Location / / Volume Laterality Blood specimen 01/06/2018 10:25 8 (specimen) AM CDT 10:26 AM CDT Rupesh Grullon MD LAB - BLOOD ORDERABLES Performing Organization Address City/State/ZIP Code Phon e Number [address] [address] [facility] Hepatitis C Screen Reflex to HCV RNA Quant and Genotype (01/06/2018 10:25 AM CDT) [facility] hospital gist Method Time Signature Hepatitis C Nonreactive NR^Nonrea 01/07/2018 [facility] ctive 10:[address] [facility] Comment: Assay performance characteristics have n ot been established for newborns, infants, and children Specimen Anatomical Collection Method Collection Time Receive d Time (Source) Location / / Volume Laterality Blood specimen 01/06/2018 10:25 8 (specimen) AM CDT 10:26 AM CDT Rupesh Grullon MD LAB - BLOOD ORDERABLES Performing Organization Address City/State/ZIP Code Phon e Number [facility] [address] documented in this encounter Visit Diagnoses Diagnosis Routine general medical examination at a health care facility - Primary Hyperlipidemia LDL goal <130 Other and unspecified hyperlipidemia Symptomatic states associated with artif icial menopause Urinary incontinence, unspecified type Need for hepatitis C screening test Special screening examination for other specified viral diseases Screening for HIV (human immunodeficienc y virus) Special screening examination for other specified viral diseases Symptomatic states associated with artif icial menopause documented in this encounter Care Teams Press Tender Relationship Specialty Start Date End Date Rupesh Grullon MD PCP - General Internal Medicine 04/03/10 Rupesh Grullon MD PCP - Assigned PCP 10/07/16 05/13/18 [address] [place] [id number] Rupesh Grullon MD Assigned PCP 10/07/16 [address] [place] [id number] documented as of this encounter
--- OUTSIDE RECORDS SUMMARY | 2021-12-16 09:44 | XMS_ITS | Encounter Summary ---
:1955 Author Organization [place] Address [facility] [place] [address] Care Team Providers Name Role Phone Rupesh Grullon MD Primary Care Provider Rupesh Grullon MD Unavailable Reason for Visit Reason Onset Date Comments Referral 01/06/2019 Leg Pain Encounter Details Date Type Department Care Team Description 01/06/[address] [facility] Ricki Grullon MD Referral (Leg Pain ) [place] [address] [facility] [address] [facility] [address] [place] [address] [place] [id number] [phone] Social History Tobacco Use Types Packs/Day Years [...] this encounter Miscellaneous Notes Telephone Encounter - Estevan Bullock RN - 01/06/2019 2:12 PM CDT Offered same day slot 01/22 and she doesn't think she can wait Soreness but different than post-workout soreness Now they're mildly weaker Doing lunges- working out with link trainer operator Advised to inform link trainer operator of soreness to legs. She thinks maybe she pulled something. She will tell the link trainer operator and lay off the leg workouts for a while to see if the pain goes away. If the pain does not go away she will call back and schedule Edvin Benitez, RN Telephone Encounter - Rupesh Grullon MD - 01/06/2019 11:09 AM CDT I perhaps need to see her myself first Telephone Encounter - Greg Farrar - 01/06/2019 9:12 AM CDT Reason for Call: Request for an order or referral: Referral Order or referral being requested: Requesting a referral for a Dr that can check her legs pt has been having leg pain. Date needed: as soon as possible Has the patient been seen by the PCP for this problem? NO Additional comments: Pt states that she has been wearing compression socks and that seems to help ptnot sure which type of Dr she should be referred to. Phone number Patient can be reached at: Home number on file [phone] (home) Best Time: Anytime Can we leave a detailed message on this number? YES Call taken on 01/06/2019 at 9:12 AM by Greg Farrar documented in this encounter Plan of Treatment Not on filedocumented as of this encounter Visit Diagnoses Not on filedocumented in this encounter Care Teams Mounter Saxophones Relationship Specialty Start Date End Date Rupesh Grullon MD PCP - General Internal Medicine 04/03/10 Rupesh Grullon MD Assigned PCP 10/07/16 [address] [place], [place] [address] documented as of this encounter
--- OUTSIDE RECORDS SUMMARY | 2021-12-16 09:44 | XMS_ITS | Encounter Summary ---
:1955 Author Organization [place] Address [address] [place] [address] Care Team Providers Name Role Phone Rupesh Grullon MD Primary Care Provider Rupesh Grullon MD Unavailable Encounter Details Date Type Department Care Team Description 01/18/2019 Travel Social History Tobacco Use Types Packs/Day [...] on filedocumented in this encounter Care Teams Electric Razor Mechanic Relationship Specialty Start Date End Date Rupesh Grullon MD PCP - General Internal Medicine 04/03/10 Rupesh Grullon MD Assigned PCP 10/07/16 [address] [address] documented as of this encounter
--- OUTSIDE RECORDS SUMMARY | 2021-12-16 09:44 | XMS_ITS | Encounter Summary ---
:1955 Author Organization [place] Address [address] [place] [address]. [place] [address] Care Team Providers Name Role Phone Rupesh Grullon MD Primary Care Provider Rupesh Grullon MD Unavailable Rupesh Grullon MD Unavailable Reason for Referral Diagnostic Imaging XR - Closed Specialty Diagnoses / Procedures Referred By Contact Refer red To Contact Procedures Cynthia Batista APRN XR Chest 2 Views AUTOMOBILE CLUB TRAVEL COUNSELOR [address] [facility] [address] [place] [address] Referral ID Status Reason Start Date Expiration Date Visits Requ ested Visits Authorized [id number] Closed 05/23/2017 05/23/2018 1 1 Reason for Visit Reason Comments Cough Encounter Details Date Type Department Care Team Description 05/23/2017 Office Visit [facility] Cynthia Batista Acute bro nchospasm (Primary Dx); Clinic Monet Sykes APRN CNP Pneumonia of left lower lobe due to infectious organism (H) [address] [facility], [address] [place] [id number] Social History Tobacco Use Types Packs/Day Years [...] Sign Reading Time Taken Comments Blood Pressure 99/62 05/23/2017 8:21 AM CDT Pulse 72 05/23/2017 8:21 AM CDT Temperature 36.8 ??C (98.3 ??F) 05/23/2017 8:21 AM CDT Respiratory Rate - - Oxygen Saturation - - Inhaled Oxygen Concentration - - Weight 73 kg (161 lb) 05/23/2017 8:21 AM CDT Height 167.6 cm (5' 6) 05/23/2017 8:21 AM CDT Body Mass Index 25.99 05/23/2017 8:21 AM CDT documented in this encounter Patient Instructions Patient InstructionsCynthia Batista APRN AUTOMOBILE CLUB TRAVEL COUNSELOR - 05/23/2017 9:42 AM CDT Images from the original note were not included. Push fluids Steam heat mucinex DM 1200mg twice a day albuterol inhaler 2 puffs every 6 hours Take the doxycycline 100mg twice a day for 10 days Plan to have xray repeated in one month RTC sooner if you are not improving Using an Inhaler Your healthcare provider may prescribe medicine that you breathe in??using a metered-dose inhaler (MDI). An inhaler sends a measured amount of medicine in a fine mist. Step 1: ?? Shake the inhaler and remove the cap. ?? Take a deep breath and let it out. Step 2: ?? Close your lips around the end of the inhaler mouthpiece. Or if you were told to use the open-mouth method, hold the inhaler 1 to 2 inches from your mouth. Step 3: ?? Breathe in slowly and deeply as you press down on the inhaler to release the medicine. ?? Inhale fully. Step 4: ?? Hold your breath for a count of??10, or as long as you can comfortably. ?? Then breathe out slowly through your mouth. ?? Repeat these steps for each puff of medicine prescribed. ? Important ?? If the inhaler is being used for the first time or has not been used for a while, prime it as directed by the product maker. You can find important information about the medicine in the package insert. This is the paper that comes with the medicine. ?? If you use more than one inhaler, make sure you know which one to use first. ?? Your healthcare provider or pharmacist can show you how to use your inhaler the right way. Even if you think you are using it the right way, it is still a good idea to check. Date Last Reviewed: 12/10/2015 ?? 2447-0979 [employer]. [address] [place] [address], [place] [address]. All rights reserved. This information is not intended as a substitute for professional medical care. Always follow your healthcare professional's instructions. documented in this encounter Progress Notes Cynthia Batista APRN CNP - 05/23/2017 8:30 AM CDT Images from the original note were not included. SUBJECTIVE: Nadia Espino is a 61 year old female who presents to clinic today for the following health issues: RESPIRATORY SYMPTOMS ?? Duration: 10 days of fever , and congestion with bad cough developing 5 days ago; Can't sleep , it is worse at night, feels like something stuck in throat ?? Description cough ?? Severity: moderate ?? Accompanying signs and symptoms: Currently no fever or chilling, no sinus drainage, no SOB or wheeze, no chest pain ?? History (predisposing factors): none ?? Precipitating or alleviating factors: None ?? Therapies tried and outcome: mucinex Problem list and histories reviewed & adjusted, as indicated. Additional history: as documented Patient Active Problem List Diagnosis ??? Symptomatic [...] drinks or equivalent per week Comment: socially Family History Problem Relation Age of Onset ??? GASTROINTESTINAL DISEASE Mother crohn's ??? DIABETES Mother OA also ??? C.A.D. Sister 55, cardiac sx ??? C.A.D. Maternal Grandmother ??? Thyroid Disease Sister evangelista's ??? Thyroid Disease Brother Current Outpatient Prescriptions Medication Sig Dispense Refill ??? NO ACTIVE MEDICATIONS 0 Allergies Allergen Reactions ??? Pcn [Bicillin C-R,] Hives ??? Penicillins Reviewed and updated as needed this visit by clinical staff Reviewed and updated as needed this visit by Provider ROS: Constitutional, HEENT, cardiovascular, pulmonary, gi and gu systems are negative, except as otherwise noted. OBJECTIVE: BP 99/62 (BP Location: Left arm, Cuff Size: Adult Regular) Pulse 72 Temp 98.3 ??F (36.8 ??C) (Oral) Ht 5' 6 (1.676 m) Wt 161 lb (73 kg) BMI 25.99 kg/m2 Body mass index is 25.99 kg/(m^2). GENERAL: healthy, alert and moderate distress EYES: Eyes grossly normal to inspection, PERRL and conjunctivae and sclerae normal HENT: ear canals and TM's normal, nose and mouth without ulcers or lesions NECK: no adenopathy, no asymmetry, masses, or scars and thyroid normal to palpation RESP: lungs ; crackles in LLL, inhalation triggered cough; inhaled neb tx with albuterol provided minimal relief from deep cough CV: regular rate and rhythm, normal S1 S2, no S3 or S4, no murmur, click or rub Diagnostic Test Results: Chest xray? IMPRESSION: Mild streaky retrocardiac opacities on the frontal view, possibly an early pneumonia. Otherwise negative. ASSESSMENT/PLAN: ICD-10-CM 1. Acute bronchospasm J98.01 albuterol (PROAIR HFA/PROVENTIL HFA/VENTOLIN HFA) 108 (90 BASE) MCG/ACTInhaler 2. Pneumonia of left lower lobe due to infectious organism (H) J18.1 doxycycline (VIBRAMYCIN) 100 MGcapsule guaiFENesin-codeine (ROBITUSSIN AC) 100-10 MG/5ML SOLN solution she has been advised that we will need to repeat a chest xray in a month to assess resolution Patient Instructions Push fluids Steam heat mucinex DM 1200mg twice a day albuterol inhaler 2 puffs every 6 hours Take the doxycycline 100mg twice a day for 10 days Plan to have xray repeated in one month RTC sooner if you are not improving Using an Inhaler Your healthcare provider may prescribe medicine that you breathe in??using a metered-dose inhaler (MDI). An inhaler sends a measured amount of medicine in a fine mist. Step 1: ?? Shake the inhaler and remove the cap. ?? Take a deep breath and let it out. Step 2: ?? Close your lips around the end of the inhaler mouthpiece. Or if you were told to use the open-mouth method, hold the inhaler 1 to 2 inches from your mouth. Step 3: ?? Breathe in slowly and deeply as you press down on the inhaler to release the medicine. ?? Inhale fully. Step 4: ?? Hold your breath for a count of??10, or as long as you can comfortably. ?? Then breathe out slowly through your mouth. ?? Repeat these steps for each puff of medicine prescribed. ? Important ?? If the inhaler is being used for the first time or has not been used for a while, prime it as directed by the product maker. You can find important information about the medicine in the package insert. This is the paper that comes with the medicine. ?? If you use more than one inhaler, make sure you know which one to use first. ?? Your healthcare provider or pharmacist can show you how to use your inhaler the right way. Even if you think you are using it the right way, it is still a good idea to check. Date Last Reviewed: 12/10/2015 ?? [id number] [employer]. [address] [place] [address], [place] [address]. All rights reserved. This information is not intended as a substitute for professional medical care. Always follow your healthcare professional's instructions. Cynthia Batista APRN CNP [employer] documented in this encounter Nursing Notes Mora Worthy MA - 05/23/2017 8:30 AM CDT Chief Complaint Patient presents with ??? Cough Initial BP 99/62 (BP Location: Left arm, Cuff Size: Adult Regular) Pulse 72 Temp 98.3 ??F (36.8 ??C) (Oral) Ht 5' 6 (1.676 m) Wt 161 lb (73 kg) BMI 25.99 kg/m2 Estimated body mass index is 25.99 kg/(m^2) as calculated from the following: Height as of this encounter: 5' 6 (1.676 m). Weight as of this encounter: 161 lb (73 kg). Medication Reconciliation: complete Mora Worthy Mora Worthy MA - 05/23/2017 8:30 AM CDT The following nebulizer treatment was given: MEDICATION: Albuterol Sulfate 2.5 mg ANIMAL TRAINER: [email or web address] LOT #: [id number] EXPIRATION DATE: 05/27 [facility] # [id number] documented in this encounter Plan of Treatment Not on filedocumented as of this encounter Procedures Procedure Name Priority Date/Time Associated Diagnosis [facility] INHALATION/NEBULIZER Routine 05/23/2017 8:41 AM CDT TREATMENT, INITIAL documented in this encounter Results XR Chest 2 Views (05/23/2017 8:54 AM CDT) Anatomical Region Laterality Modality Chest Computed Radiography Specimen (Source) Anatomical Location Collection Method / Collectio n Time Received Time / Laterality Volume Impressions 05/24/2017 6:38 PM CDT IMPRESSION: ??Mild streaky retrocardiac opacities on the frontal view, possibly an early pneumonia. Otherwise n egative. JACI BOWMAN MD Narrative 05/24/2017 6:38 PM CDT CHEST TWO VIEWS ??05/23/2017 8:54 AM HISTORY: ??Viral URI with cough. COMPARISON: ??None. Procedure Note Jaci Bowman MD - 8 CHEST TWO VIEWS 05/23/2017 8:54 AM HISTORY: Viral URI with cough. COMPARISON: None. IMPRESSION: Mild streaky retrocardiac op acities on the frontal view, possibly an early pneumonia. Otherwise n egative. JACI BOWMAN MD Cynthia Batista FINISHER HOT STRIP AUTOMOBILE CLUB TRAVEL COUNSELOR IMG DIAGNOSTIC IMAGING ORDER MIGUELANGEL documented in this encounter Visit Diagnoses Diagnosis Acute bronchospasm - Primary Pneumonia of left lower lobe due to infe ctious organism Viral URI with cough Acute upper respiratory infections of un specified site documented in this encounter Care Teams Tooth Polisher Relationship Specialty Start Date End Date Rupesh Grullon MD PCP - General Internal Medicine 04/03/10 Rupesh Grullon MD PCP - Assigned PCP 10/07/16 05/13/18 [address] [place] [id number] Rupesh Grullon MD Assigned PCP 10/07/16 [address] [place] [address] documented as of this encounter
--- OUTSIDE RECORDS SUMMARY | 2021-12-16 09:44 | XMS_ITS | Encounter Summary ---
:1955 Author Organization [place] Address [address] [place] [address] Care Team Providers Name Role Phone Rupesh Grullon MD Primary Care Provider Rupesh Grullon MD Unavailable Reason for Visit Reason Onset Date Comments Orders 06/19/2018 podiatry or orthoped ics? for broken toe Encounter Details Date Type Department Care Team Description 06/19/2018 Telephone [facility] Rupesh Grullon MD Orders (podiatry or Clinic [place] [address] [place] [address] orthopedics? for broken [address] [facility] [address] [facility] toe) [address] [place] [address] [place] [phone] Social History Tobacco Use Types Packs/Day Years [...] this encounter Miscellaneous Notes Telephone Encounter - Huong Hampton RN - 06/19/2018 10:27 AM CDT Detailed message left asking patient to call back to schedule with podiatry. Huong Pinzon RN Telephone Encounter - Rupesh Grullon MD - 06/19/2018 9:10 AM CDT PLEASE SCHEDULE WITH PODIATRY Telephone Encounter - Que Sheffield CMA - 06/19/2018 9:02 AM CDT Patient with closed nondisplaced fracture of phalanx of lesser toe of right foot wondering if she should see Podiatry or Orthopedics. Please advise. Que Sheffield CMA on 06/19/2018 at 9:02 AM Telephone Encounter - Lurdes Covington - 06/19/2018 8:53 AM CDT Reason for Call: Request for an order or referral: Order or referral being requested: either podiatry or orthopedics for a broken toe. Date needed: as soon as possible Has the patient been seen by the PCP for this problem? NO*was seen in for this, but it is not getting any better. Not sure who she should see for this, but wants to have it checked! Please call patient to let her know who she should be seeing. Phone number Patient can be reached at: Home number on file [phone] (home) Best Time: anytime Can we leave a detailed message on this number? YES Call taken on 06/19/2018 at 8:53 AM by Lurdes Adria. documented in this encounter Plan of Treatment Not on filedocumented as of this encounter Visit Diagnoses Not on filedocumented in this encounter Care Teams Cattle Dehorner Relationship Specialty Start Date End Date Rupesh Grullon MD PCP - General Internal Medicine 04/03/10 Rupesh Grullon MD Assigned PCP 10/07/16 [address] [place] [address] [place] [address] documented as of this encounter
--- OUTSIDE RECORDS SUMMARY | 2021-12-16 09:44 | XMS_ITS | Encounter Summary ---
:1955 Author Organization [place] Address [facility] [place] [address] Care Team Providers Name Role Phone Rupesh Grullon MD Primary Care Provider Rupesh Grullon MD Unavailable Rupesh Grullon MD Unavailable Reason for Visit Reason Onset Date Comments Results 01/24/2018 Dexa Scan Encounter Details Date Type Department Care Team Description 01/24/2018 Telephone [facility] Ricki Grullon MD Results (Dexa Scan) [place] [address] [facility] [address] [facility] [address] [place] [address] [place] [address] [phone] Social History Tobacco Use Types Packs/Day Years [...] Notes Telephone Encounter - Anna Joe - 01/27/2018 1:58 PM CST Pt is scheduled for a pre-op 01/28 E MOVER HELPER Telephone Encounter - Digna Harkins CMA - 01/24/2018 3:08 PM CST I think that you should see below. Patient may need to come in if it's a pre-op. Digna Harkins MA E MOVER HELPER Telephone Encounter - Rupesh Grullon MD - 01/24/2018 2:59 PM CST She may still need a preop please check with the preop requirements about her surgery I am happy to do preop on Saturday E MOVER HELPER Telephone Encounter - Anna Joe - 01/24/2018 2:51 PM CST LVM to call and schedule a telephone visit 01/[address] Yadi SARMIENTO to use TC hold. Please see below E MOVER HELPER Telephone Encounter - Syeda Coleman CMA - 01/24/2018 2:40 PM CST Can you please call patient and set up either a phone visit or OV per Dr.Kaurs sarmiento in message below for Saturday01/28/18. Patient shouldn't need pre op appt with if this visit is made. Thanks Syeda Coleman CMA on 01/24/2018 at 2:43 PM E MOVER HELPER Telephone Encounter - Digna Harkins CMA - 01/24/2018 2:37 PM CST Please see below. Digna Harkins MA E MOVER HELPER Telephone Encounter - Digna Harden - 01/24/2018 2:08 PM CST Pt calling back is wondering if Pre op is going to be done over the phone? Is the pre op still needed with Dr. Edmondson on the ? Ph. [phone] VM is okay E MOVER HELPER Telephone Encounter - Rupesh Grullon MD - 01/24/2018 2:00 PM CST vm left I will see her or phone appointment Saturday E MOVER HELPER Telephone Encounter - Digna Harkins CMA - 01/24/2018 10:[address] Grullon, please see below and do result letter for patient's dexa. Thank you. Digna Harkins MA E MOVER HELPER Telephone Encounter - Anna Joe - 01/24/2018 9:39 AM CST I called Pt to reschedule her appointment With Dr. Grullon on 01/27. Pt has been rescheduled With Dr. Edmondson on 01/27 however she would like a Call back on her Dexa scan results. E MOVER HELPER documented in this encounter Plan of Treatment Not on filedocumented as of this encounter Visit Diagnoses Not on filedocumented in this encounter Care Teams Pc Support Specialist Relationship Specialty Start Date End Date Rupesh Grullon MD PCP - General Internal Medicine 04/03/10 Rupesh Grullon MD PCP - Assigned PCP 10/07/16 05/13/18 [address] [place] [id number] Rupesh Grullon MD Assigned PCP 10/07/16 [address] [place] [address] documented as of this encounter
--- OUTSIDE RECORDS SUMMARY | 2021-12-16 09:44 | XMS_ITS | Encounter Summary ---
:1955 Author Organization [place] Address [address] [place] [address]. [place] [address] Care Team Providers Name Role Phone Rupesh Grullon MD Primary Care Provider Rupesh Grullon MD Unavailable Reason for Visit Reason Onset Date Comments Symptoms 01/09/2019 Encounter Details Date Type Department Care Team Description 01/09/[address] [facility] Aniceto Bryanuel Symptoms Nargis Lilly MD [address] [facility], [address] [facility] [address] [place] [address] [place] [address] [phone] Social History Tobacco Use Types Packs/Day Years [...] Telephone Encounter - Huong Hampton RN - 01/09/2019 2:37 PM CDT Patient notified of PCP's response Huong Pinzon RN Telephone Encounter - Rupesh Grullon MD - 01/09/2019 2:30 PM CDT Flexeril will be okay to continue. Telephone Encounter - Bridget Espinosa RN - 01/09/2019 2:11 PM CDT Routing to rebecca to review, Routed to Yadi in error. Telephone Encounter - Bridget Espinosa RN - 01/09/2019 1:54 PM CDT Chest symptoms dissapeared this morning. Abdominal sx were fairly prevelent throughout morning, then got better, but just came back for a bit(so sounds like improving overall). Pt states original pain has improved, so may not need to take more medication. Plan with pt:d/c naproxen as most likely to cause abd pain. Only take flexeril tylenol/codein if needed. If symptoms worsen/side effects return to UC or ER as appropriate. Pt agreement with this plan. Is it ok for pt to continue to try tylenol 3 or flexeril if needed? Bridget Espinosa RN Telephone Encounter - Aniceto Bryan MD - 01/09/2019 1:43 PM CDT If still with chest symptoms, she needs to go to the ER. Telephone Encounter - Allegra Johnson - 01/09/2019 1:13 PM CDT Pt returned call. Please call back Telephone Encounter - Huong Hampton RN - 01/09/2019 1:08 PM CDT Left message asking patient to call triage back Huong Pinzon RN Telephone Encounter - Lisandra Rodriguez [facility] - 01/09/2019 12:59 PM CDT Is patient still feeling like someone is sitting on her chest? Any other chest pain/AL sx? It appears pt received dose of ketorolac yesterday as well, and naproxen could cause GI upset. NSAIDs (ketorolac and naproxen) do have a rare possibility of causing AL, so if she's having any other sx of AL would recommend further evaluation. Otherwise would guess she can probably resume Tylenol #3 and cyclobenzaprine, but will defer to Dr. Bryan for final decision. Lisandra Rodriguez, PharmD, [facility] Medication Therapy Management Provider Pager: [phone] Telephone Encounter - Carol Kaur RN - 01/09/2019 9:56 AM CDT S: Pt calls with throbbing pain in abdomen B: OV 01/09/19 A: Pain moved from legs into stomach: Onset: This morning Description: Throbbing, comes and goes Last BM: unsure- probably yesterday, denies blood, stool was normal Last night, felt like someone was sitting on chest Breathing is OK, but feels like is catching a cold Legs this morning- OK, not bad, feel a little weak, but good- lack of use since Feels it may be Naproxen, Tylenol #3 or flexeril RX'd yesterday She took all three medications twice yesterday, as prescribed. MTM/Dr. Bryan- I have advised pt to avoid all three medications at this time- Advice on how to proceed or which medication may be the culprit? Dr. Bryan- should she stick with regular Tylenol? Please advise, Thank you, Carol Smith RN Telephone Encounter - Melania Prieto - 01/09/2019 9:52 AM CDT Reason for call: Patient reporting a symptom Symptom or request: Pt called and is concerned that she might be having an allergic reaction to the medication that she was prescribed yesterday. She says that the pain she felt in her legs has moved into her abdomin. She says that it throbs. Duration (how long have symptoms been present): She took the pills yesterday and felt it this morning Have you been treated for this before? No Phone Number patient can be reached at: Cell number on file: Telephone Information: Best Time: Any Can we leave a detailed message on this number: YES Call taken on 01/09/2019 at 9:53 AM by Melania Prieto documented in this encounter Plan of Treatment Not on filedocumented as of this encounter Visit Diagnoses Not on filedocumented in this encounter Care Teams Pot Reliner Relationship Specialty Start Date End Date Rupesh Grullon MD PCP - General Internal Medicine 04/03/10 Rupesh Grullon MD Assigned PCP 10/07/16 [address] [place], [place] [address] documented as of this encounter
--- OUTSIDE RECORDS SUMMARY | 2021-12-16 09:44 | XMS_ITS | Encounter Summary ---
:1955 Author Organization [place] Address [facility] [address] Care Team Providers Name Role Phone Rupesh Grullon MD Primary Care Provider Rupesh Grullon MD Unavailable Rupesh Grullon MD Unavailable Encounter Details Date Type Department Care Team Description 05/15/2017 E-Visit [facility] Rupesh Grullon MD Encounter for counseling [facility] [place] [address] [facility] (Primary Dx) [address] [facility] [address] [place] [address] [place] [address] [phone] Social History Tobacco Use Types Packs/Day Years [...] this encounter Miscellaneous Notes Telephone Encounter - Amaris Whitfield CMA - 05/20/2017 1:20 PM CDT Pt has not read the reply from orthodontic band maker provider while Dr. Grullon out of office. Delivery Read From Message Type Attachments Subject ?? 05/17/2017 10:17 AM Cynthia Baez APRN [employer] E-Visit RE: E-Visit Submission: Other documented in this encounter Plan of Treatment Not on filedocumented as of this encounter Visit Diagnoses Diagnosis Encounter for counseling - Primary Counseling NOS documented in this encounter Care Teams Photocomposing Keyboard Operator Relationship Specialty Start Date End Date Rupesh Grullon MD PCP - General Internal Medicine 04/03/10 Rupesh Grullon MD PCP - Assigned PCP 10/07/16 05/13/18 [address] [place] [address] Rupesh Grullon MD Assigned PCP 10/07/16 [address] [place] [id number] documented as of this encounter
--- OUTSIDE RECORDS SUMMARY | 2021-12-16 09:44 | XMS_ITS | Encounter Summary ---
:1955 Author Organization [place] Address [address] [place] [address]. [place] [address] Care Team Providers Name Role Phone Rupesh Grullon MD Primary Care Provider Rupesh Grullon MD Unavailable Reason for Visit Reason Onset Date Comments Ear Fullness 01/19/2019 Encounter Details Date Type Department Care Team Description 01/19/2019 Telephone [facility] Ricki Grullon MD Ear Fullness [place] [address] [facility] [address] [place] [address], [address] [place] [address] [place] [address] [phone] Social History Tobacco Use Types Packs/Day Years [...] this encounter Miscellaneous Notes Telephone Encounter - Lory Estrada RN - 01/22/2019 3:29 PM CST Patient had office visit today Lory Estrada RN on 01/22/2019 at 3:29 PM DRYER Telephone Encounter - Lory Estrada RN - 01/22/2019 7:28 AM CST Left message on machine to call back to confirm or decline the 8:45 am appt today with . Please cancel appt.if patient unable to come in. Lory Estrada RN on 01/22/2019 at 7:30 AM DRYER Telephone Encounter - Rupesh Grullon MD - 01/21/2019 7:08 PM CST I will see her 8.45 AM ok to add on tomorrow DRYER Telephone Encounter - Estevan Bullock RN - 01/21/2019 10:22 AM CST PCP, Please see triage below. Pt still has ear fullness following URI- no pain. She is wondering if she should go to ENT? Please advise Thank you, Edvin Benitez RN DRYER Telephone Encounter - Alva Espinosa - 01/21/2019 10:04 AM CST Reason for Call: Other update Detailed comments: patient states her symptoms are not improved. There is no pain. She is asking if she should go to an ENT? Phone Number Patient can be reached at: Cell number on file: Telephone Information: Best Time: any Can we leave a detailed message on this number? YES Call taken on 01/21/2019 at 10:05 AM by Alva Espinosa DRYER Telephone Encounter - Lory Estrada RN - 01/19/2019 12:10 PM CST Ears plugged and dizziness are following a bad URI. NO pain. NO fever. Not blowing nose. Dizziness has resolved mostly. Has used Mucinex/plain. Has Benadryl (generic) on hand. This may help with the crackling sensation of her ears. Do not take if driving due to drowsy side effects. Suggested Sudafed (OTC/pharmacy counter) as directed also. Call if no improvement over next couple of days, OR if pain develops. Lory Estrada, RN DRYER Telephone Encounter - Alexandria Holt - 01/19/2019 9:52 AM CST Reason for call: Patient reporting a symptom Symptom or request: dizziness, plugged ears and unable to hear well, and j Duration (how long have symptoms been present): week ( one day for dizziness) Have you been treated for this before? No Additional comments: Pt will like to speak with nurse Phone Number patient can be reached at: Home number on file [phone] (home) Best Time: Any Can we leave a detailed message on this number: YES Call taken on 01/19/2019 at 9:53 AM by Alexandria Holt DRYER documented in this encounter Plan of Treatment Not on filedocumented as of this encounter Visit Diagnoses Not on filedocumented in this encounter Care Teams Freight Unloader Relationship Specialty Start Date End Date Rupesh Grullon MD PCP - General Internal Medicine 04/03/10 Rupesh Grullon MD Assigned PCP 10/07/16 [address] [place] [address] documented as of this encounter
--- OUTSIDE RECORDS SUMMARY | 2021-12-16 09:44 | XMS_ITS | Encounter Summary ---
:1955 Author Organization [place] Address [facility] [place] [address] Care Team Providers Name Role Phone Rupesh Grullon MD Primary Care Provider Rupesh Grullon MD Unavailable Rupesh Grullon MD Unavailable Reason for Visit Diagnostic Imaging XR - Closed Specialty Diagnoses / Procedures Referred By Contact Refer red To Contact Procedures Cynthia Batista APRN XR Chest 2 Views EDUCATIONAL PSYCHOLOGIST [address] [address] Referral ID Status Reason Start Date Expiration Date Visits Requ ested Visits Authorized [id number] Closed 05/23/2017 05/23/2018 1 1 Encounter Details Date Type Department Care Team Description 05/23/2017 Radiant Appointment [facility] Cynthia Batista with cough Clinic Monet Sykes APRN EDUCATIONAL PSYCHOLOGIST [address] [place] [phone] Social History Tobacco Use Types Packs/Day Years [...] Priority Date/Time Associated Diagnosis Comme nts XR CHEST 2 VIEWS Routine 05/23/2017 8:54 AM Viral URI with cou gh Results for this CDT procedure are i n the results section. documented in this encounter Results XR Chest [...] n egative. JACI BOWMAN MD Cynthia Batista APRN EDUCATIONAL PSYCHOLOGIST IMG DIAGNOSTIC IMAGING ORDER MIGUELANGEL documented in this encounter Visit Diagnoses Diagnosis Viral URI with cough Acute upper respiratory infections of un specified site documented in this encounter Care Teams Tank Tender Relationship Specialty Start Date End Date Rupesh Grullon MD PCP - General Internal Medicine 04/03/10 Rupehs Grullon MD PCP - Assigned PCP 10/07/16 05/13/18 [address] [place] [address] Rupesh Grullon MD Assigned PCP 10/07/16 [address] [place] [address] documented as of this encounter
--- OUTSIDE RECORDS SUMMARY | 2021-12-16 09:44 | XMS_ITS | Encounter Summary ---
:1955 Author Organization [place] Address [address] [place] [address] Care Team Providers Name Role Phone Rupesh Grullon MD Primary Care Provider Rupesh Grullon MD Unavailable Reason for Referral Diagnostic Imaging Mammo - Closed Specialty Diagnoses / Procedures Referred By Contact Refer red To Contact Radiology. Diagnoses Visit for screening mammogram Rupesh Grullon MD Breast Imaging Procedures MA Screen Bilateral w/Buck [address] [place] [place] [address], [address] [place], [place] [address] [place] [phone] Referral ID Status Reason Start Date Expiration Date Visits Requ ested Visits Authorized [id number] Closed 05/26/2018 05/26/2019 1 1 Reason for Visit Diagnostic Imaging Mammo - Closed Specialty Diagnoses / Procedures Referred By Contact Refer red To Contact Radiology. Diagnoses Visit for screening mammogram Rupesh Grullon MD Breast Imaging Procedures MA Screen Bilateral w/Buck [address] [place] [address], [address] [place] [address] [place] [address] Referral ID Status Reason Start Date Expiration Date Visits Requ ested Visits Authorized [id number] Closed 05/26/2018 05/26/2019 1 1 Encounter Details Date Type Department Care Team Description 06/06/2018 Hospital Encounter [facility] Rupesh Grullon Vi sit for screening [facility] [address] [facility] [address] [place] [address], [address] [place] [address] [place] [phone] Social History Tobacco Use [...] Associated Diagnosis Comme nts MA SCREENING Routine 06/06/2018 9:55 AM Visit for screening Re sults for this BILATERAL W/ BUCK CDT mammogram procedure are in the results section. documented in this encounter Results MA Screen Bilateral w/Buck (06/06/2018 9:55 AM CDT) Anatomical Region Laterality Modality Breast Bilateral Mammography Specimen (Source) Anatomical Location Collection Method / Collectio n Time Received Time / Laterality Volume Impressions 06/06/2018 10:41 AM CDT IMPRESSION: BI-RADS CATEGORY: 1 - ??Negative. RECOMMENDED FOLLOW-UP: Annual Mammograph desiree ORR MD Narrative 06/06/2018 10:41 AM CDT SCREENING MAMMOGRAM, BILATERAL, DIGITAL w/CAD and TOMOSYNTHESIS, 06/06/2018 10:40 AM BREAST DENSITY: Heterogeneously dense. CLINICAL INFORMATION: Breast screening. ??Visit for screening mammogram, 06/03/2017, 05/30/2016, 4, 07/17/2012 FINDINGS: Negative. Stable exam. Screeni ng exam in one year recommended. Procedure Note Antoine Orr MD - 06/06/2018Formatt ing of this note might be different from the original. SCREENING MAMMOGRAM, BILATERAL, DIGITAL w/CAD and TOMOSYNTHESIS, 06/06/2018 10:40 AM BREAST DENSITY: Heterogeneously dense. CLINICAL INFORMATION: Breast screening. Visit for screening mammogram, 06/03/2017, 05/30/2016, 4, 07/17/2012 FINDINGS: Negative. Stable exam. Screeni ng exam in one year recommended. IMPRESSION: BI-RADS CATEGORY: 1 - Negati ve. RECOMMENDED FOLLOW-UP: Annual Mammograph y. ANTOINE ORR MD Rupesh Grullon MD IMG MAMMOGRAPHY ORDERABLES documented in this encounter Visit Diagnoses Diagnosis Visit for screening mammogram Other screening mammogram documented in this encounter Care Teams Hot Stamp Operator Relationship Specialty Start Date End Date Rupesh Grullon MD PCP - General Internal Medicine 04/03/10 Rupesh Grlulon MD Assigned PCP 10/07/16 [address] [place] [address] documented as of this encounter
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
--- OUTSIDE RECORDS SUMMARY | 2021-12-16 09:44 | XMS_ITS | Encounter Summary ---
:1955 Author Organization [facility] Address [address] [place] [address] Care Team Providers Name Role Phone Rupesh Grullon MD Primary Care Provider Rupesh Grullon MD Unavailable Jhonatan Butcher DPM Unavailable Reason for Referral Diagnostic Imaging Dexa (Routine) - Closed Specialty Diagnoses / Procedures Referred By Contact Refer red To Contact Radiology. Diagnoses Age-related osteoporosis without current pathological fracture Rupesh Grullon MD Dexascan Procedures DX Hip/Pelvis/Spine [address] [facility] [address] [place] [address] [address] [place] [address] Phone: Fax: Referral ID Status Reason Start Date Expiration Date Visits Requ ested Visits Authorized [id number] Closed 12/25/2018 12/25/2019 1 1 Reason for Visit Reason Onset Date Comments Orders 12/25/2018 dexa Encounter Details Date Type Department Care Team Description 12/25/2018 Telephone [facility] Ricki Grullon MD Orders (dexa) [place] [address] [facility] [place] [address] [place] [phone] Social History Tobacco Use Types Packs/Day Years [...] this encounter Miscellaneous Notes Telephone Encounter - Bridget Espinosa RN - 12/25/2018 2:00 PM CDT Left message of below for pt. Bridget Espinosa RN Telephone Encounter - Rupesh Grullon MD - 12/25/2018 1:28 PM CDT Order in Telephone Encounter - Alva Espinosa - 12/25/2018 12:27 PM CDT Reason for Call: Other order Detailed comments: central scheduling for imaging called. Patient wants to schedule a dexa but needsan order. Per scheduling, Patient had said she called her insurance and she could have a dexa once ayear. Phone Number Patient can be reached at: Home number on file [phone] (home) # for patient Best Time: any Can we leave a detailed message on this number? YES Call taken on 12/25/2018 at 12:27 PM by Alva Espinosa documented in this encounter Plan of Treatment Not on filedocumented as of this encounter Results DX Hip/Pelvis/Spine (12/31/2018 8:56 [...] This DEXA scan was performed u sing [employer]oh[employer] scanner. DEXA results are reported according to [...] DEXA scan was performed u sing a Localsensor scanner. DEXA results are reported according to [...] Diagnosis Age-related osteoporosis without current pathological fracture - Primary Senile osteoporosis Age-related osteoporosis without current pathological fracture Senile osteoporosis documented in this encounter Care Teams Digital Account Executive Relationship Specialty Start Date End Date Rupesh Grullon MD PCP - General Internal Medicine 04/03/10 Rupesh Grullon MD Assigned PCP 10/07/16 [address] [place] [id number] Jhonatan Butcher, Assigned Musculoskeletal 01/01/20 02/25/21 DPM Provider [address] [place] [id number] documented as of this encounter
--- OUTSIDE RECORDS SUMMARY | 2021-12-16 09:44 | XMS_ITS | Encounter Summary ---
:1955 Author Organization [facility] Address [address] [place] [address] Care Team Providers Name Role Phone Rupesh Grullon MD Primary Care Provider Rupesh Grullon MD Unavailable Encounter Details Date Type Department Care Team Description 01/22/2019 Travel Social History Tobacco Use Types Packs/Day [...] on filedocumented in this encounter Care Teams Scanning Supervisor Relationship Specialty Start Date End Date Rupesh Grullon MD PCP - General Internal Medicine 04/03/10 Rupesh Grullon MD Assigned PCP 10/07/16 [address] [address] documented as of this encounter
--- OUTSIDE RECORDS SUMMARY | 2021-12-16 09:44 | XMS_ITS | Encounter Summary ---
:1955 Author Organization [facility] Address [address] [place] [address] Care Team Providers Name Role Phone Rupesh rGullon MD Primary Care Provider Rupesh Grullon MD Unavailable Rupesh Grullon MD Unavailable Jhonatan Butcher DPM Unavailable Encounter Details Date Type Department Care Team Description 02/11/2018 Anesthesia - [facility] OR PORSHA [address] [place] [phone] [place], [place] [phone] [facility] Social History Tobacco Use Types Packs/Day Years [...] / COVID-19? documented as of this encounter OR Notes Anesthesia Postprocedure Evaluation - Ines Hoover MD - 02/11/2018 7:23 PM CST Patient: Nadia Espino LEFORT I OSTEOTOMY, BILATERAL SAGITTAL SPLIT RAMUS OSTEOTOMY Anesthesia type: general Patient location: PACU Last vitals: Vitals: 02/11/181909 BP: 118/61 Pulse: 64 Resp: 12 Temp: 37.2 ??C (98.9 ??F) SpO2: 95% Post vital signs: stable Level of consciousness: awake and responds to simple questions Post-anesthesia pain: pain controlled Post-anesthesia nausea and vomiting: no Pulmonary: unassisted, return to baseline Cardiovascular: stable and blood pressure at baseline Hydration: adequate Anesthetic events: no QCDR Measures: ASA# 11 - Dalia-op Cardiac Arrest: ASA11B - Patient did NOT experience unanticipated cardiac arrest ASA# 12 - Dalia-op Mortality Rate: ASA12B - Patient did NOT ASA# 13 - PACU Re-Intubation Rate: ASA13B - Patient did NOT require a new airway mgmt ASA# 10 - Composite Anes Safety: ASA10A - No serious adverse event Additional Notes: DEND CLERK Anesthesia Preprocedure Evaluation - Historical Provider - 02/11/2018 12:12 PM CST Anesthesia Evaluation Patient summary reviewed Airway Mallampati: II Neck ROM: full Pulmonary - negative ROS and normal exam Cardiovascular - normal exam (+) , hypercholesterolemia, ECG reviewed (Sinus bradycardia (54)) Neuro/Psych Comments: Hx concussion x 3 - no residual Endo/Other Comments: Osteopenia GI/Hepatic/Renal - negative ROS (-) GERD Other findings: Portwine stain left eye/face. Dental Comment: Full braces Anesthesia Plan Planned anesthetic: general endotracheal Scopolamine patch Afrin nasal spray preop Glidescope intubation Nasal IVONNE ETT Propofol 75 mcg/kg/min IV with Sevo. Zofran/Decadron Sugammadex reversal ASA 2 Induction: intravenous Anesthetic plan and risks discussed with: patient and spouse Anesthesia plan special considerations: video-assisted, antiemetics, Post-op plan: routine recovery documented in this encounter Miscellaneous Notes Anesthesia Care Transfer Note - Josefina Holley APRN CRNA - 02/11/2018 5:35 PM CST Last vitals: Vitals: 02/11/18 1730 BP: (!) 161/99 Pulse: 80 Resp: 21 Temp: 37.4 ??C (99.3 ??F) SpO2: 98% Patient's level of consciousness is drowsy Spontaneous respirations: yes Maintains airway independently: yes Dentition unchanged: yes Oropharynx: oropharynx clear of all foreign objects QCDR Measures: ASA# 20 - Surgical Safety Checklist: WHO surgical safety checklist completed prior to induction PQRS# 430 - Adult PONV Prevention: 4558F - Pt received => 2 anti-emetic agents (different classes) preop & intraop ASA# 8 - Peds PONV Prevention: NA - Not pediatric patient, not GA or 2 or more risk factors NOT present PQRS# 424 - Dalia-op Temp Management: 4559F - At least one body temp DOCUMENTED => 35.5C or 95.9F within required timeframe PQRS# 426 - PACU Transfer Protocol:G9655 - Transfer of care checklist used ASA# 14 - Acute Post-op Pain: ASA14B - Patient did NOT experience pain >= 7 out of 10 DEND CLERK documented in this encounter Plan of Treatment Not on filedocumented as of this encounter Visit Diagnoses Not on filedocumented in this encounter Care Teams Shipper Relationship Specialty Start Date End Date Rupesh Grullon MD PCP - General Internal Medicine 04/03/10 Rupesh Gruloln MD PCP - Assigned PCP 10/07/16 05/13/18 [address] [place] [address] [place] [address] Rupesh Grullon MD Assigned PCP 10/07/16 [address] [place] [address] Jhonatan Butcher, Assigned Musculoskeletal 01/01/20 02/25/21 DPM Provider [address] [place] [id number] documented as of this encounter
--- OUTSIDE RECORDS SUMMARY | 2021-12-16 09:44 | XMS_ITS | Encounter Summary ---
:1955 Author Organization [facility] Address [facility] [place] [address] Care Team Providers Name Role Phone Rupesh Grullon MD Primary Care Provider Rupesh Grullon MD Unavailable Rupesh Grullon MD Unavailable Reason for Visit Reason Comments Pre-Op Exam Encounter Details Date Type Department Care Team Description [facility] Preop general physical exam (Primary Dx) ; [facility] [place] [address] Jaw asymmetry; [address] Age-related osteoporosis without current pathological fracture; [facility] [address] [place] [address] Symptomatic states associated with artif [place] [id number] Social History Tobacco Use Types Packs/Day Years [...] Sign Reading Time Taken Comments Blood Pressure 130/87 01/28/2018 1:58 PM FIRE CHIEF'S AIDE Pulse 61 01/28/2018 1:58 PM FIRE CHIEF'S AIDE Temperature 35.6 ??C (96 ??F) 01/28/2018 1:58 PM FIRE CHIEF'S AIDE Respiratory Rate - - Oxygen Saturation 98% 01/28/2018 1:58 PM FIRE CHIEF'S AIDE Inhaled Oxygen Concentration - - Weight 69.9 kg (154 lb) 01/28/2018 1:58 PM FIRE CHIEF'S AIDE Height 167.6 cm (5' 6) 01/28/2018 1:58 PM FIRE CHIEF'S AIDE Body Mass Index 24.86 01/28/2018 1:58 PM FIRE CHIEF'S AIDE documented in this encounter Patient Instructions Patient InstructionsChristina Alaniz CMA - 01/27/2018 4:02 PM CST Images from the original note were not included. For both men and women, the most widely prescribed osteoporosis medications are bisphosphonates. Examples include: Alendronate (Fosamax, Binosto) Risedronate (Actonel, Atelvia) Ibandronate (Boniva) Zoledronic acid (Reclast, Zometa) Side effects include nausea, abdominal pain, difficulty swallowing, and the risk of an inflamed esophagus or esophageal ulcers. These are less likely to occur if the medicine is taken properly. Injected forms of bisphosphonates don't cause stomach upset. And it may be easier to schedule a quarterly oryearly injection than to remember to take a weekly or monthly pill, but it can be more costly to do so. Long-term bisphosphonate therapy has been linked to a rare problem in which the middle of the thighbone cracks and might even break completely. Bisphosphonates also have the potential to affect the jawbone. Osteonecrosis of the jaw is a rare condition mostly occurring after a tooth extraction in whicha section of jawbone dies and deteriorates. You should have a recent dental examination before starting bisphosphonates. Hormone-related therapy Estrogen, especially when started soon after menopause, can help maintain bone density. However, estrogen therapy can increase a woman's risk of blood clots, endometrial cancer, breast cancer and possibly heart disease. Raloxifene (Evista) mimics estrogen's beneficial effects on bone density in postmenopausal women, without some of the risks associated with estrogen. Taking this drug may also reduce the risk of some types of breast cancer. Hot flashes are a common side effect. Raloxifene also may increase your risk of blood clots. In men, osteoporosis may be linked with a gradual age-related decline in testosterone levels. Testosterone replacement therapy can help increase bone density, but osteoporosis medications are better studied in men with osteoporosis and are recommended instead of or in addition to testosterone. Less common osteoporosis medications If you can't tolerate the more common treatments for osteoporosis -- or if they don't work well enough -- your doctor might suggest trying: Teriparatide (Forteo). This powerful drug is similar to parathyroid hormone and stimulates new bone growth. It's given by injection under the skin. After two years of treatment with teriparatide, another osteoporosis drug is taken to maintain the new bone growth. Denosumab (Prolia). Compared with bisphosphonates, denosumab produces similar or better bone densityresults while targeting a different step in the bone remodeling process. Denosumab is delivered via a shot under the skin every six months. The most common side effects are back and muscle pain. ??? CHIEF'S AIDE documented in this encounter Progress Notes Ruepsh Grullon MD - 01/27/2018 4:02 PM CST [address] [id number] Dept: [phone] PRE-OP EVALUATION: Today's date: 01/28/2018 Nadia Jarred Espino (: 1955) presents for pre-operative evaluation assessment as requested by Kar Hernandez. He requires evaluation and anesthesia risk assessment prior to undergoing surgery/procedure for treatment of Jaw issues. Proposed Surgery/ Procedure: Orthognathic Surgery Date of Surgery/ Procedure: 02/11/2018 Time of Surgery/ Procedure: 11:30 AM Hospital/Surgical Facility: [facility] Fax number for surgical facility: [phone] Primary Physician: Rupesh Grullon Type of Anesthesia Anticipated: to be determined Patient has a Health Care Directive or Living Will: NO 1. NO - Do you have a history of heart attack, stroke, stent, bypass or surgery on an artery in the head, neck, heart or legs? 2. NO - Do you ever have any pain or discomfort in your chest? 3. NO - Do you have a history of Heart Failure? 4. NO - Are you troubled by shortness of breath when: walking on the level, up a slight hill or at night? 5. NO - Do you currently have a cold, bronchitis or other respiratory infection? 6. NO - Do you have a cough, shortness of breath or wheezing? 7. NO - Do you sometimes get pains in the calves of your legs when you walk? 8. NO - Do you or anyone in your family have previous history of blood clots? 9. NO - Do you or does anyone in your family have a serious bleeding problem such as prolonged bleeding following surgeries or cuts? 10. NO - Have you ever had problems with anemia or been told to take iron pills? 11. NO - Have you had any abnormal blood loss such as black, tarry or bloody stools, or abnormal vaginal bleeding? 12. NO - Have you ever had a blood transfusion? 13. NO - Have you or any of your relatives ever had problems with anesthesia? 14. NO - Do you have sleep apnea, excessive snoring or daytime drowsiness? 15. NO - Do you have any prosthetic heart valves? 16. NO - Do you have prosthetic joints? 17. NO - Is there any chance that you may be ? HPI: HPI related to upcoming procedure: patient has dental issues and will need 6 hours of jaw surgery torealign the jaw per oral surgeon MEDICAL HISTORY: Patient Active Problem List Diagnosis Date Noted [...] artificial menopause Priority: Medium hysterectomy, night sweats Past Medical History: Diagnosis Date ??? Age-related [...] ABDOMINAL, BILATERAL SALPINGO-OOPHORECTOMY, COMBINED 2006 ovaries left Current Outpatient Prescriptions Medication Sig Dispense Refill ??? NO ACTIVE MEDICATIONS 0 OTC products: None, except as noted above Allergies Allergen Reactions ??? Pcn [Bicillin C-R,] Hives ??? Penicillins Latex Allergy: NO Social History Substance Use Topics ??? Smoking status: Never Smoker ??? Smokeless tobacco: Never Used ??? Alcohol use 0.0 oz/week 0 Standard drinks or equivalent per week Comment: 4-5 drinks a week History Drug Use No REVIEW OF SYSTEMS: 10 point ROS of systems including Constitutional, Eyes, Respiratory, Cardiovascular, Gastroenterology, Genitourinary, Integumentary, Muscularskeletal, Psychiatric were all negative except for pertinentpositives noted in my HPI. EXAM: BP 130/87 (BP Location: Right arm, Cuff Size: Adult Regular) Pulse 61 Temp 96 ??F (35.6 ??C) (Oral) Ht 5' 6 (1.676 m) Wt 154 lb (69.9 kg) SpO2 98% BMI 24.86 kg/m2 GENERAL APPEARANCE: healthy, alert and no distress HENT: ear canals and TM's normal and nose and mouth without ulcers or lesions RESP: lungs clear to auscultation - no rales, rhonchi or wheezes CV: regular rate and rhythm, normal S1 S2, no S3 or S4 and no murmur, click or rub ABDOMEN: soft, nontender, no HSM or masses and bowel sounds normal NEURO: Normal strength and tone, sensory exam grossly normal, mentation intact and speech normal DIAGNOSTICS: EKG: appears normal, NSR, normal axis, normal intervals, no acute ST/T changes c/w ischemia, no LVH by voltage criteria, unchanged from previous tracings Recent Labs Lab Test 01/06/18 1025 10/01/16 1212 HGB -- 14.7 PLT -- 265 NA 143 140 POTASSIUM 4.4 4.6 CR 0.70 0.80 IMPRESSION: Reason for surgery/procedure: jaw alignment Diagnosis/reason for consult: Medical The proposed surgical procedure is considered LOW risk. REVISED CARDIAC RISK INDEX The patient has the following serious cardiovascular risks for perioperative complications such as (CA, PE, VFib and 3?? AV Block): No serious cardiac risks INTERPRETATION: 1 risks: Class II (low risk - 0.9% complication rate) The patient has the following additional risks for perioperative complications: No identified additional risks ICD-10-CM 1. Preop general physical exam Z01.818 EKG 12-lead complete w/read - Clinics 2. Jaw asymmetry M26.12 EKG 12-lead complete w/read - Clinics 3. Age-related osteoporosis without current pathological fracture M81.0 Vitamin D Deficiency 4. Symptomatic states associated with artificial menopause E89.41 ?? Lumbar spine: The T-score is -3.3 from L1 to L4. ?? Hips: The left hip femoral neck T-score is -2.3. The right hip femoral neck T-score is -1.8. Bone mineral density in the worst hip is 0.724 gm/cm2. ? IMPRESSION: 1. Moderate osteoporosis of the lumbar spine, advanced osteopenia of the left hip, and moderate osteopenia of the right hip. 2. The probability of major osteoporotic fracture is 20.8 percent and probability of hip fracture is 1.9 percent within the next 10 years according to FRAX risk assessment. ?? RECOMMENDATIONS: I discuused with patient about following medications and she chooses not to treat her Dexa findings yet She wishes to do Repeat scan in 1 year and will do Vitamin D screening today For both men and women, the most widely prescribed osteoporosis medications are bisphosphonates. Examples include: Alendronate (Fosamax, Binosto) Risedronate (Actonel, Atelvia) Ibandronate (Boniva) Zoledronic acid (Reclast, Zometa) Side effects include nausea, abdominal pain, difficulty swallowing, and the risk of an inflamed esophagus or esophageal ulcers. These are less likely to occur if the medicine is taken properly. Injected forms of bisphosphonates don't cause stomach upset. And it may be easier to schedule a quarterly oryearly injection than to remember to take a weekly or monthly pill, but it can be more costly to do so. Long-term bisphosphonate therapy has been linked to a rare problem in which the middle of the thighbone cracks and might even break completely. Bisphosphonates also have the potential to affect the jawbone. Osteonecrosis of the jaw is a rare condition mostly occurring after a tooth extraction in whicha section of jawbone dies and deteriorates. You should have a recent dental examination before starting bisphosphonates. Hormone-related therapy Estrogen, especially when started soon after menopause, can help maintain bone density. However, estrogen therapy can increase a woman's risk of blood clots, endometrial cancer, breast cancer and possibly heart disease. Raloxifene (Evista) mimics estrogen's beneficial effects on bone density in postmenopausal women, without some of the risks associated with estrogen. Taking this drug may also reduce the risk of some types of breast cancer. Hot flashes are a common side effect. Raloxifene also may increase your risk of blood clots. In men, osteoporosis may be linked with a gradual age-related decline in testosterone levels. Testosterone replacement therapy can help increase bone density, but osteoporosis medications are better studied in men with osteoporosis and are recommended instead of or in addition to testosterone. Less common osteoporosis medications If you can't tolerate the more common treatments for osteoporosis -- or if they don't work well enough -- your doctor might suggest trying: Teriparatide (Forteo). This powerful drug is similar to parathyroid hormone and stimulates new bone growth. It's given by injection under the skin. After two years of treatment with teriparatide, another osteoporosis drug is taken to maintain the new bone growth. Denosumab (Prolia). Compared with bisphosphonates, denosumab produces similar or better bone densityresults while targeting a different step in the bone remodeling process. Denosumab is delivered via a shot under the skin every six months. The most common side effects are back and muscle pain. APPROVAL GIVEN to proceed with proposed procedure, without further diagnostic evaluation Signed Electronically by: Rupesh Grullon MD Copy of this evaluation report is provided to requesting physician. [facility] Preop Guidelines Revised Cardiac Risk Index CHIEF'S AIDE documented in this encounter Nursing Notes Tesha Marte, [facility] - 01/28/2018 2:00 PM CST Tesha Marte CMA CHIEF'S AIDE documented in this encounter Miscellaneous Notes Addendum Note - Kandy Kaplan - 01/28/2018 5:12 PM FIRE CHIEF'S AIDE Addended by: KANDY KAPLAN on: 01/28/2018 05:12 PM Modules accepted: Orders CHIEF'S AIDE documented in this encounter Plan of Treatment Not on filedocumented as of this encounter Procedures Procedure Name Priority Date/Time Associated Diagnosis Comme nts EKG 12-LEAD COMPLETE Routine 01/28/2018 Preop general physic al Results for this W/READ - CLINICS exam procedure are in the Jaw asymmetry results sectio n. documented in this encounter Results EKG 12-lead complete w/read - Clinics (01/28/2018) Specimen (Source) Anatomical Location Collection Method / Collectio n Time Received Time / Laterality Volume 01/28/2018 Narrative This result has an attachment that is no t available. Rupesh Grullon MD ECG ORDERABLES documented in this encounter Visit Diagnoses Diagnosis Preop general physical exam - Primary Other specified pre-operative examinatio n Jaw asymmetry Other jaw asymmetry Age-related osteoporosis without current pathological fracture Senile osteoporosis Symptomatic states associated with artif icial menopause documented in this encounter Care Teams Sprinkler Inspector Relationship Specialty Start Date End Date Rupesh Grullon MD PCP - General Internal Medicine 04/03/10 Rupesh Grullon MD PCP - Assigned PCP 10/07/16 05/13/18 [address] [place] [address] Rupesh Grullon MD Assigned PCP 10/07/16 [address] [place] [address] documented as of this encounter
--- OUTSIDE RECORDS SUMMARY | 2021-12-16 09:44 | XMS_ITS | Encounter Summary ---
:1955 Author Organization [facility] Address [address] [place] [address] Care Team Providers Name Role Phone Rupesh Grullon MD Primary Care Provider Rupesh Grullon MD Unavailable Rupesh Grullon MD Unavailable Jhonatan Butcher DPM Unavailable Encounter Details Date Type Department Care Team Description 02/11/2018 Surgery - [facility] Kar Hutchins John'rivas Main OR DDS [address] [place] [phone] [place] [address] [id number] [place] [address] (Wo rk) Social History Tobacco Use Types [...] Sign Reading Time Taken Comments Blood Pressure - - Pulse - - Temperature - - Respiratory Rate - - Oxygen Saturation - - Inhaled Oxygen Concentration - - Weight 76.2 kg (168 lb) 02/11/2018 7:30 PM FLAT POLISHER Height 167.6 cm (5' 6) 02/11/2018 7:30 PM FLAT POLISHER Body Mass Index 27.12 02/11/2018 7:30 PM FLAT POLISHER documented in this encounter Plan of Treatment Not on filedocumented as of this encounter Visit Diagnoses Not on filedocumented in this encounter Care Teams Mothers Helper Relationship Specialty Start Date End Date Rupesh Grullon MD PCP - General Internal Medicine 04/03/10 Rupesh Grullon MD PCP - Assigned PCP 10/07/16 05/13/18 [address] [place] [id number] Rupesh Grullon MD Assigned PCP 10/07/16 [address] [place] [id number] Jhonatan Butcher, Assigned Musculoskeletal 01/01/20 02/25/21 DPM Provider [address] [facility] [place] [id number] documented as of this encounter
--- OUTSIDE RECORDS SUMMARY | 2021-12-16 09:44 | XMS_ITS | Encounter Summary ---
:1955 Author Organization [facility] Address [address] [place] [address] Care Team Providers Name Role Phone Rupesh Grullon MD Primary Care Provider Rupesh Grullon MD Unavailable Encounter Details Date Type Department Care Team Description 06/01/2018 Travel Social History Tobacco Use Types Packs/Day [...] on filedocumented in this encounter Care Teams Chlorobutadiene Scrubber Operator Relationship Specialty Start Date End Date Rupesh Grullon MD PCP - General Internal Medicine 04/03/10 Rupesh Grullon MD Assigned PCP 10/07/16 [address] [address] documented as of this encounter
--- OUTSIDE RECORDS SUMMARY | 2021-12-16 09:44 | XMS_ITS | Encounter Summary ---
:1955 Author Organization [place] Address [address] [place] [address] Care Team Providers Name Role Phone Rupesh Grullon MD Primary Care Provider Rupesh Grullon MD Unavailable Rupesh Grullon MD Unavailable Encounter Details Date Type Department Care Team Description 02/11/2018 [facility] [place] [address] [place] [address] PROF BLDG [id number] [place] [address] [id number] [place] [address] Social History Tobacco Use Types Packs/Day Years [...] 76.2 kg (168 lb) 02/11/2018 7:30 PM CHANGE OF ADDRESS CLERK Height 167.6 cm (5' 6) 02/11/2018 7:30 PM CHANGE OF ADDRESS CLERK Body Mass Index 27.12 02/11/2018 7:30 PM CHANGE OF ADDRESS CLERK documented in this encounter Discharge Summaries Rusty Calvo MD - 02/12/2018 1:04 PM CST Discharge Summary Admission Date: 02/11/2018 Admission Diagnoses: 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 PM after scheduled medications Post-operative Day: 1 Day Post-Op Reason for Admission: The patient was admitted for the following: LEFORT I OSTEOTOMY, BILATERAL SAGITTAL SPLIT RAMUS OSTEOTOMY (N/A) Principal Diagnosis: maxillary hypoplasia, mandibular hyperplasia,, mandibular hypoplasia, facial skeletal asymmetry. Nadia patient of our practice. She was initially Referred by her airconditioning drafting officer for evaluation and correction of her skeletal dysmorphiaShe underwent the surgical procedure as planned. She was extubatedin the OR without any complications and transferred to the PACU. Following recovery the patient was t ransferred to the post-op floor for postop monitoring and recovery. She was given iv clindamycin, steroids and pain medication. There were no acute overnight events. Vitals remained stable, pain was controlled. The patient was voiding, taking PO and ambulating. Discharge criteria was met. No complications noted or reported. Examination: S: Pt in bed, awake, by herself. Reports limited sleep due to interruptions. Reports pain is controlled. No overnight issues. Taking PO, voided, ambulating. States she is unable to get her teeth together. Overall she feels well. O: Gen: NAD,AO CV: RRR PUL: CTAB GI/ABD: s/nt/nd. BS present. HEENT/Oral: Jaw bra with new ice. Appropriate facial edema. Facial tissues soft. No neck swelling. Handling oral secretions appropriately. Bilateral buccal ecchymosis present.Nares patent. No dried blood on face. Oropharynx patent CN V2: Bilateral paresthesia CN V3: Bilateral paresthesia, right side more than left side. Tingling present bilaterally. Dental midline: mandible 1-2mm R of maxilla. Dental elastics in place. Early contact and slide to left into CO. Splint secure. Incisions hemostatic. Steris in place A: 62 yo F , POD #1 s/p LeFort I and BSSRO osteotomies to correct facial asymmetry. Appropriate postop course. P: Anticipate discharge this evening after scheduled medications complete. Ice to face PRN Suction PRN Ambulate Encourage PO Dietary consult prior to discharge HOB>30 Therapy: none Complications: None None apparent Consultations: nutrition Dietary for soft nonchew diet Lab Results: Hemoglobin Date/Time Value Ref Range Status 02/11/2018 12:02 PM 14.6 12.0 - 16.0 g/dL Final Platelets Date/Time Value Ref Range Status 02/11/2018 12:02 PM 275 140 - 440 thou/uL Final Vitals: 02/12/18 1557 BP: 109/65 Pulse: 67 Resp: 16 Temp: 98.9 ??F (37.2 ??C) SpO2: 94% Principal Problem: Mandibular asymmetry Discharge Information: Condition at discharge: good Discharge destination: Final discharge disposition not confirmed Medications at discharge: There are no discharge medications for this patient. Discharge medication prescriptions dispensed prior to surgery from our clinic Follow-up Care: The patient will be followed in our office in 02/13/18. Appointment has been made.. Rusty Calvo DDS Date: 02/12/2018 Time: 1:04 PM GE OF ADDRESS CLERK documented in this encounter Medications at Time of Discharge Medication Sig Dispensed Refills Start Date End Date NO ACTIVE MEDICATIONS 0 04/03/2010 documented as of this encounter Progress Notes Historical Provider - 02/12/2018 10:47 AM CST Clinical Nutrition Therapy Education Note Nutrition History: Information from patient Diet prior to admission: regular Intervention: Education materials provided: high protein/high calorie liquid diet for jaw surgery. Pt has many types of protein drinks at home already, and has been thinking about diet after surgery. Pricilla Tobar [facility] - 02/11/2018 12:19 PM CST Pharmacy Note - Admission Medication History Pertinent Provider Information: Has been off calcium for weeks. Prior To Admission (LOGISTICS TECH) med list completed and updated in EMR. No outpatient medications have been marked as taking for the 02/11/18 encounter (Hospital Encounter). Information source(s): Patient and Clinic records Patient was asked about OTC/herbal products specifically. LOGISTICS TECH med list reflects this. Based on the pharmacist???s assessment, the LOGISTICS TECH med list information appears reliable Allergies were reviewed, assessed, and updated with the patient. Patient does not use any multi-dose medications prior to admission. Thank you for the opportunity to participate in the care of this patient. Pricilla Tobar PharmD 02/11/2018 12:19 PM GE OF ADDRESS CLERK documented in this encounter H&P Notes Rusty Calvo MD - 02/11/2018 12:34 PM CST H&P reviewed. No interval changes in past medical history. 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 Hyperlipemia ??? Osteoporosis ??? Pneumonia 04/2016 Patient Active Problem List Diagnosis Date Noted ??? Mandibular asymmetry 02/11/2018 Findings: Maxillary and mandibular hypoplasia and asymmetry. Operative Report: Written informed consent was obtained preoperatively. The risks and complications were discussed to include but not limited to; infection bleeding malunion nonunion malocclusion numbness of the midfaceand lower face and tongue. Mild occlusion and the potential need for additional surgery or treatment. The patient was worked up preoperatively with clinical exam, photographic records, noted articulated test, cone beam CT, centric relation. This data was used for 3D systems treatment planning protocol. Surgical stents were made per prescription through 3D systems. Patient was brought to the main operating room she was placed in the operating room table in supine position. General anesthesia was induced with intravenous agents. The note patient was nasotracheallyintubated. Bilateral breath sounds were confirmed. The nasotracheal tube was secured in the usual fashion. Local anesthetic was infiltrated around the planned surgical sites. The throat pack was placed. Timeout was completed Incision was made in the maxillary vestibule 3 mm. Chemical gingival junction from first molar to first molar. Osteotomies were made in the maxilla from the pterygomaxillary junction through the piriform rim using the Pisa O's. Double ball osteotome was used to separate the nasal septum. Single ball osteotomes were used along the lateral nasal wall. Pterygoid osteotomes were used to separate the maxilla pterygomaxillary junction. The maxilla was easily down fractured and mobilized. There was very good hemostasis. The nasal spine was reduced. The piriform rims were recontoured as per plan. The patient was placed into intermaxillary fixation using a prefabricated surgical guide. Bony interferences were reduced. The maxilla was reduced so that the orthodontic appliances were not visible with the upper lip at rest. 4 2.0 mm [facility] bone plates were fashioned and secured with 4 screws each. The intermaxillary fixation was released and occlusion was coincident with the plan. The wounds were irrigated. There is very good hemostasis Incision was made in the bilateral mandible along the anterior border of the ramus extending into the vestibule 3 mm inferior to the mucogingival junction through the first molar. The angle of the mandible was exposed bilaterally and the medial ramus was exposed superior to the mandibular foramen. Themandibular foramen was visualized directly and palpated with a nerve hook. Horizontal corticotomies were made along the medial ramus superior to the mandibular foramen corticotomy continued along the anterior border ramus and external oblique ridge. The corticotomy entered in a vertical corticotomy approximately at the first and second molar junction. The osteotomies were completed with osteotomes. The right split was extending up to the condylar process. This was redirected using appears also and osteotomes. The patient was placed into intermaxillary fixation. 3 positional screws were placed bilaterally with a transbuccal trocar. Each screw hole was drilled and measured separately. The proximal segments were controlled with the Nelson positioner. The patient was released from intermaxillary fixation and her occlusion was coincident with a splint. Wounds were thoroughly irrigated. There is very good hemostasis. 3-0 Vicryl suture was used as an alar based cinch suture. A 1 cm VY closure was completed of the maxillary vestibule using 3-0 Vicryl. The mandibular oral muscles were closed with 3-0 Vicryl. Skin wounds were closed with 5-0 fast absorbing gut. Benzoin and Steri-Strips were placed across the wound. The throat pack was removed. An orogastric tube was positioned suctioned and removed. All sponge and needle counts were correct x2. There is very good hemostasis upon completion of the procedure. Estimated Blood Loss: * No blood loss documented between In Room and Out of Room log events - 02/11/2018 1:40 PM to 02/11/2018 5:09 PM * Specimens: @ORSPEC@ Drains: NG/OG Tube Orogastric Center mouth (Active) Implants: Implant Name Type Inv. Item Serial No. Field Service Manager Lot No. LRB No. Used Action PLATE LP L-SHAPE RT MED 0.5MM - [id number] Metallic Hardware/[place] PLATE LP L- SHAPE RT MED 0.5MM KLSMARTIN NA N/A 2 Implanted PLATE LP L-SHAPE LT MED 0.5MM CP TIT - [id number] Metallic Hardware/[place] PLATE LP L-SHAPE LT MED 0.5MM CP TIT KLS MANUELA NA N/A 2 Implanted SCREW MAXDRIVE DF 2.0MM X 5MM - [id number] Metallic Hardware/[place] SCREW MAXDRIVE DF 2.0MM X 5MM KLSMARTIN NA N/A 16 Implanted IMP SCR KLS MAXDRIVE MINI 2.0X9MM TI-6AL-4V TI - [id number] Metallic Hardware/[place] IMP SCR KLS MAX[employer]IVE MINI 2.0X9MM TI-6AL-4V TI KLS MANUELA NA N/A 1 Implanted IMP SCR KLS MAXDRIVE MINI 2.0X11MM TI-6AL-4V TI - [id number] Metallic Hardware/[place] IMP SCR KLS MAXDRIVE MINI 2.0X11MM TI-6AL-4V TI KLS MANUELA NA N/A 3 Implanted IMP SCR KLS MAXDRIVE MINI 2.0X15MM TI-6AL-4V TI - [id number] Metallic Hardware/[place] IMP SCR KLS MAXDRIVE MINI 2.0X15MM TI-6AL-4V TI KLS MANUELA NA N/A 1 Implanted IMP SCR KLS MAXDRIVE MINI 2.0X17MM TI-6AL-4V TI - [id number] Metallic Hardware/[place] IMP SCR KLS MAXDRIVE MINI 2.0X17MM TI-6AL-4V TI KLS MANUELA NA N/A 1 Implanted Complications: None Kar Hernandez Date: 02/11/2018 Time: 5:09 PM GE OF ADDRESS CLERK documented in this encounter Plan of Treatment Not on filedocumented as of this encounter Procedures Procedure Name Priority Date/Time Associated Diagnosis Comme nts EXTRA RED TOP TUBE Routine 02/11/2018 12:02 PM CHANGE OF ADDRESS CLERK TYPE AND SCREEN, STAT 02/11/2018 12:02 PM Resu lts for this ADULT CHANGE OF ADDRESS CLERK procedure are i n the results section. CBC WITH PLATELETS STAT 02/11/2018 12:02 PM Re sults for this CHANGE OF ADDRESS CLERK procedure are i n the results section. EKG CARDIAC - HIM 02/11/2018 SCAN documented in this encounter Results EXTRA RED TOP TUBE (02/11/2018 12:02 PM CHANGE OF ADDRESS CLERK) Specimen Anatomical Collection Method / Collection Time Recei jerome Time (Source) Location / Volume Laterality Blood specimen Venipuncture / 02/11/2018 12:02 018 (specimen) Unknown PM CHANGE OF ADDRESS CLERK 12:08 PM CHANGE OF ADDRESS CLERK Kar David DDS LAB - BLOOD ORDERABLES TYPE AND SCREEN, ADULT (02/11/2018 12:02 PM CHANGE OF ADDRESS CLERK) P athologist Signature ABO/RH(D) AB POS 02/11/2018 BLOOD BANK 12:46 PM CHANGE OF ADDRESS CLERK Antibody Negative Negative 02/11/2018 BLOOD BANK Screen 12:46 PM CHANGE OF ADDRESS CLERK Specimen Anatomical Collection Method / Collection Time Recei jerome Time (Source) Location / Volume Laterality Blood specimen Venipuncture / 02/11/2018 12:02 018 (specimen) Unknown PM CHANGE OF ADDRESS CLERK 12:06 PM CHANGE OF ADDRESS CLERK Historical Provider LAB - BLOOD BANK TEST ORDER Performing Organization Address City/State/ZIP Code Phon e Number [facility] BLOOD BANK [address] [place] [address] BLOOD BANK [address] [place] [address] CBC with platelets (02/11/2018 12:02 PM CHANGE OF ADDRESS CLERK) athologist Signature WBC 5.4 4.0 - 11.0 [facility]11[facility] CHANGE OF ADDRESS CLERK [facility] NS LABORATORY RBC Count 4.77 3.80 - 02/11/2018 HEALTH 5.40 12:15 PM CHANGE OF ADDRESS CLERK [facility]/ N'S LABORATORY Hemoglobin 14.6 12.0 - 02/11/2018 [facility] 16.0 g/dL 12:15 PM CHANGE OF ADDRESS CLERK [facility] LABORATORY Hematocrit 43.2 35.0 - 02/11/2018 HEALTH 47.0 % 12:15 PM CHANGE OF ADDRESS CLERK [facility] MCV 91 80 - 100 02/11/2018 HEALTH fL 12:15 PM CHANGE OF ADDRESS CLERK [facility] N'S LABORATORY MCH 30.6 27.0 - 02/11/2018 HEALTH 34.0 pg 12:15 PM CHANGE OF ADDRESS CLERK [facility] MCHC 33.8 32.0 - 02/11/2018 [facility] 36.0 g/dL 12:15 PM CHANGE OF ADDRESS CLERK [facility] RDW 12.7 11.0 - 02/11/2018 [facility] 14.5 % 12:15 PM CHANGE OF ADDRESS CLERK [facility] Platelet Count 275 140 - 440 02/11/2018 [facility] thou/uL 12:15 PM CHANGE OF ADDRESS CLERK [facility] Mean Platelet 10.6 8.5 - 12.5 02/11/2018 [facility] Volume fL 12:15 PM CHANGE OF ADDRESS CLERK [facility] N'S LABORATORY Specimen Anatomical Collection Method / Collection Time Recei jerome Time (Source) Location / Volume Laterality Blood specimen Venipuncture / 02/11/2018 12:02 018 (specimen) Unknown PM CHANGE OF ADDRESS CLERK 12:06 PM CHANGE OF ADDRESS CLERK Historical Provider LAB - BLOOD ORDERABLES Performing Organization Address City/State/ZIP Code Phon e Number [facility] [place] [address] [facility] [address] [place] [address] LABORATORY EKG CARDIAC - HIM SCAN (02/11/2018) Narrative This result has an attachment that is no t available. Historical Provider ECG ORDERABLES documented in this encounter Visit Diagnoses Not on filedocumented in this encounter Care Teams Risk Modeler Relationship Specialty Start Date End Date Rupesh Grullon MD PCP - General Internal Medicine 04/03/10 Rupesh Grullon MD PCP - Assigned PCP 10/07/16 05/13/18 [address] [place] [address] Rupesh Grullon MD Assigned PCP 10/07/16 [address] [place] [address] documented as of this encounter
--- OUTSIDE RECORDS SUMMARY | 2021-12-16 09:44 | XMS_ITS | Encounter Summary ---
:1955 Author Organization [place] Address [facility] [place] [address] Care Team Providers Name Role Phone Rupesh Grullon MD Primary Care Provider Rupesh Grullon MD Unavailable Reason for Referral Consultation (Routine) - Closed Specialty Diagnoses / Procedures Referred By Contact Refer red To Contact Diagnoses Impacted cerumen of right ear Upper respiratory tract infection, unspecified type Rupesh Grullon MD [facility] [address] [facility] [address] [place] [place] [address] [place] [address] Fax: Referral ID Status Reason Start Date Expiration Date Visits Requ ested Visits Authorized [id number] Closed 01/22/2019 01/22/2020 1 1 ACE LOADER Reason for Visit Reason Comments Ear Problem fullness , both Encounter Details Date Type Department Care Team Description 01/22/2019 Office Visit [facility] Rupesh Grullon MD Impacted cerumen of right ear (Primary D x); Clinic [place] [address] Upper respiratory tract infe ction, unspecified type [address] [place] [address] [place] [phone] Social History Tobacco Use Types Packs/Day Years [...] Sign Reading Time Taken Comments Blood Pressure 129/83 01/22/2019 11:43 AM FURNACE LOADER Pulse 91 01/22/2019 11:43 AM FURNACE LOADER Temperature 36.5 ??C (97.7 ??F) 01/22/2019 11:43 AM FURNACE LOADER Respiratory Rate - - Oxygen Saturation 97% 01/22/2019 11:43 AM FURNACE LOADER Inhaled Oxygen Concentration - - Weight 73.9 kg (163 lb) 01/22/2019 11:43 AM FURNACE LOADER Height 167.6 cm (5' 6) 01/22/2019 11:43 AM FURNACE LOADER Body Mass Index 26.31 01/22/2019 11:43 AM FURNACE LOADER documented in this encounter Progress Notes Rupesh Grullon MD - 01/22/2019 8:45 AM CST Subjective Nadia Espino is a 63 year old female who presents to clinic today for the following health issues: HPI Chief Complaint Patient presents with ??? Ear Problem fullness , both Patient had a cold end of December It was associated with cough Since that time she has tearfulness which is not going away She has trouble hearing at times No fever or chills Patient Active Problem List Diagnosis ??? Symptomatic [...] Outpatient Medications Medication Sig Dispense Refill ??? cyclobenzaprine (FLEXERIL) 10 MG tablet Take 1 tablet (10 mg) by mouth 2 times daily as needed for muscle spasms CAUTION: May cause drowsiness (Patient not taking: Reported on 01/16/2019) 20 tablet 1 ??? NO ACTIVE MEDICATIONS 0 Allergies Allergen Reactions ??? Pcn [Bicillin C-R,] Hives ??? Penicillins Reviewed and updated as needed this visit by Provider Tobacco Allergies Meds Problems Med Hx Surg Hx Fam Hx Review of Systems 10 point ROS of systems including Constitutional, Eyes, Respiratory, Cardiovascular, Gastroenterology, Genitourinary, Integumentary, Muscularskeletal, Psychiatric were all negative except for pertinentpositives noted in my HPI. Objective BP 129/83 (BP Location: Left arm, Patient Position: Chair, Cuff Size: Adult Regular) Pulse 91 Temp 97.7 ??F (36.5 ??C) (Oral) Ht 1.676 m (5' 6) Wt 73.9 kg (163 lb) SpO2 97% BMI 26.31 kg/m?? Body mass index is 26.31 kg/m??. Physical Exam HEENT exam is normal Right earwax is noted No lymphadenopathy Assessment & Plan Nadia was seen today for ear problem. Diagnoses and all orders for this visit: Impacted cerumen of right ear - OTOLARYNGOLOGY REFERRAL - HC REMOVAL IMPACTED CERUMEN IRRIGATION/LVG UNILAT Upper respiratory tract infection, unspecified type - OTOLARYNGOLOGY REFERRAL The waX could not be removed by me and was removed by nurse I also discussed with patient about seeing ENT if symptoms persist for the ear fullness There is no evidence of infection I discussed the MRI results with her which was done by sports medicine and she will also follow-up with them BMI: Estimated body mass index is 26.63 kg/m?? as calculated from the following: Height as of 01/16/19: 1.676 m (5' 6). Weight as of 01/16/19: 74.8 kg (165 lb). Return in about 4 weeks (around 02/19/2019) for EARS . Rupesh Grullon MD [facility] ACE LOADER documented in this encounter Nursing Notes Amaris Whitfield CMA - 01/22/2019 8:45 AM CST Right ear wash with plain warm water using elephant ear. Moderate clump of wax removed. Pt toleratedwell. Neena Brownlee MA ACE LOADER documented in this encounter Plan of Treatment Scheduled Referrals Name Type Priority Associated Diagnoses Order S [facility] OTOLARYNGOLOGY REFERRAL Referral Routine Impacted cerumen of Ordered: 01/22/2019 right ear Upper respiratory tract infection, unspecified type documented as of this encounter Procedures Procedure Name Priority Date/Time Associated Diagnosis Comme nts HC REMOVAL IMPACTED Routine 01/22/2019 11:28 AM Impacted cerum en of CERUMEN IRRIGATION/LVG FURNACE LOADER right ear UNILAT documented in this encounter Visit Diagnoses Diagnosis Impacted cerumen of right ear - Primary Impacted cerumen Upper respiratory tract infection, unspe cified type documented in this encounter Care Teams Restaurant Recruiter Relationship Specialty Start Date End Date Rupesh Grullon MD PCP - General Internal Medicine 04/03/10 Rupesh Grullon MD Assigned PCP 10/07/16 [address] [place] [address] documented as of this encounter
--- OUTSIDE RECORDS SUMMARY | 2021-12-16 09:44 | XMS_ITS | Encounter Summary ---
:1955 Author Organization [place] Address [address] [place] [address] Care Team Providers Name Role Phone Rupesh Grullon MD Primary Care Provider Rupesh Grullon MD Unavailable Encounter Details Date Type Department Care Team Description 01/16/2019 Travel Social History Tobacco Use Types Packs/Day [...] on filedocumented in this encounter Care Teams Retail Wireless Sales Representative Relationship Specialty Start Date End Date Rupesh Grullon MD PCP - General Internal Medicine 04/03/10 Rupesh Grullon MD Assigned PCP 10/07/16 [address] [address] documented as of this encounter
--- OUTSIDE RECORDS SUMMARY | 2021-12-16 09:44 | XMS_ITS | Encounter Summary ---
:1955 Author Organization [place] Address [facility] [place] [address] Care Team Providers Name Role Phone Rupesh Grullon MD Primary Care Provider Rupesh Grullon MD Unavailable Rupesh Grullon MD Unavailable Reason for Referral Diagnostic Imaging Mammo - Closed Specialty Diagnoses / Procedures Referred By Contact Refer red To Contact Radiology. Diagnoses Encounter for screening mammogram for high-risk patient Rupesh Grullon MD Breast Imaging Procedures MA Screen Bilateral w/Buck [address], [address] [place] [address] [place] [address] Referral ID Status Reason Start Date Expiration Date Visits Requ ested Visits Authorized [id number] Closed 06/03/2017 06/03/2018 1 1 Reason for Visit Diagnostic Imaging Mammo - Closed Specialty Diagnoses / Procedures Referred By Contact Refer red To Contact Radiology. Diagnoses Encounter for screening mammogram for high-risk patient Rupesh Grullon MD Breast Imaging Procedures MA Screen Bilateral w/Buck [address], [address] [place] [address] [place] [address] Referral ID Status Reason Start Date Expiration Date Visits Requ ested Visits Authorized [id number] Closed 06/03/2017 06/03/2018 1 1 Encounter Details Date Type Department Care Team Description 06/03/2017 Hospital Encounter [facility] GrullonRupesh robles, En counter for [facility] Breast MD screening mammogram Center [address] [facility] [address] [place] [address] 150 patient [facility], [address] [place] [address] [place] [phone] Social History Tobacco Use Types Packs/Day Years [...] End Date NO ACTIVE MEDICATIONS 0 04/03/2010 albuterol (PROAIR Inhale 2 puffs into 1 Inhaler 0 8 01/06/2018 HFA/PROVENTIL the lungs every 6 HFA/VENTOLIN HFA) 108 hours as needed for (90 BASE) MCG/ACT shortness of breath InhalerIndications: / dyspnea or Acute bronchospasm wheezing doxycycline (VIBRAMYCIN) Take 1 capsule (100 20 capsule 0 01/06/2018 100 MG mg) by mouth 2 times capsuleIndications: daily Pneumonia of left lower lobe due to infectious organism guaiFENesin-codeine Take 5-10 mLs by 120 mL 0 05/23/2017 01/06/2018 (ROBITUSSIN AC) 100-10 mouth At Bedtime MG/5ML SOLN solutionIndications: Pneumonia of left lower lobe due to infectious organism documented as of this encounter Plan of Treatment Not on filedocumented as of this encounter Procedures Procedure Name Priority Date/Time Associated Diagnosis Comme nts MA SCREENING Routine 06/03/2017 10:41 AM Encounter for Results for this BILATERAL W/ BUCK CDT screening mammogram pro cedure are in for high-risk the results patient section. documented in this encounter Results MA Screen Bilateral w/Buck (06/03/2017 10:41 AM CDT) Anatomical Region Laterality Modality Breast Bilateral Mammography Specimen (Source) Anatomical Location Collection Method / Collectio n Time Received Time / Laterality Volume Impressions 06/03/2017 11:22 AM CDT IMPRESSION: BI-RADS CATEGORY: 1 - Negative. RECOMMENDED FOLLOW-UP: Annual Mammograph y. Recommend routine annual screening mammo graphy. Exam results letter mailed to patient. JOSE CRUZ MIN MD Narrative 06/03/2017 11:22 AM CDT SCREENING MAMMOGRAM, BILATERAL, DIGITAL w/CAD AND TOMOSYNTHESIS - 06/03/2017 10:41 AM. BREAST SYMPTOMS: No current breast compl aints. COMPARISON: ??05/02/2016, 07/15/2013, , 07/10/2011. BREAST DENSITY: Heterogeneously dense. COMMENTS: No findings of suspicion for m alignancy. Procedure Note Jose Cruz Min MD - 06/03/2017 SCREENING MAMMOGRAM, BILATERAL, DIGITAL w/CAD AND TOMOSYNTHESIS - 06/03/2017 10:41 AM. BREAST SYMPTOMS: No current breast compl aints. COMPARISON: 05/02/2016, 07/15/2013, 07/27, 07/10/2011. BREAST DENSITY: Heterogeneously dense. COMMENTS: No findings of suspicion for m alignancy. IMPRESSION: BI-RADS CATEGORY: 1 - Negati ve. RECOMMENDED FOLLOW-UP: Annual Mammograph y. Recommend routine annual screening mammo graphy. Exam results letter mailed to patient. JOSE CRUZ MIN MD Rupesh Grullon MD IMG MAMMOGRAPHY ORDERABLES documented in this encounter Visit Diagnoses Diagnosis Encounter for screening mammogram for hi gh-risk patient documented in this encounter Care Teams [employer] Relationship Specialty Start Date End Date Rupesh Grullon MD PCP - General Internal Medicine 04/03/10 Rupesh Grullon MD PCP - Assigned PCP 10/07/16 05/13/18 [address] [place] [phone] Rupesh Grullon MD Assigned PCP 10/07/16 [address] [place] [id number] documented as of this encounter
--- OUTSIDE RECORDS SUMMARY | 2021-12-16 09:45 | XMS_ITS | Encounter Summary ---
:1955 Author Organization [place] Address [facility] [place] [address] Care Team Providers Name Role Phone Rupesh Grullon MD Primary Care Provider Reason for Visit Reason Onset Date Comments Request for MRI Order 09/28/2016 MRI for eye Encounter Details Date Type Department Care Team Description 09/28/[address] [facility] Rupesh Grullon MD Request for MRI Order [facility] [address] [place] [address] (MRI for eye ) [address] [facility] [address] [place] [address] [place] [phone] Social History Tobacco Use Types Packs/Day Years [...] this encounter Miscellaneous Notes Telephone Encounter - Kiersten Ramirez - 10/01/2016 11:47 AM CDT scheduled Telephone Encounter - Mamadou Nash CMA - 10/01/2016 11:21 AM CDT Spoke with patient call was disconnected. Please assist in making appointment for today. Mamadou LON Nash Telephone Encounter - Rupesh Grullon MD - 10/01/2016 11:17 AM CDT With a mean MRI of the brain or orbit This she needs to be seen by me today we will add if that's the case Telephone Encounter - Mamadou Nash CMA - 10/01/2016 11:13 AM CDT Spoke with patient and she informed that her eye exam was normal and the pain is located behind the eye and to speak with her pcp about getting a MRI. Mamadou Saad JOSELINNadia Telephone Encounter - Deborah Arreola - 10/01/2016 10:21 AM CDT Patient called back, said Eye Dr advised Eye exam was normal, pain located behind the eye. Please call patient back Telephone Encounter - Christina Alaniz CMA - 10/01/2016 10:16 AM CDT Left message for patient to return our call. Christina Alaniz CMA Telephone Encounter - Rupesh Grullon MD - 09/28/2016 3:47 PM CDT I need those records from either or from her because I don't know what to order Eye doctor should've ordered that But I'm happy to do that if I have records Telephone Encounter - Janet Ríos - 09/28/2016 12:43 PM CDT Reason for Call: Request for an order or referral: Order or referral being requested: Order for MRI on eye Date needed: as soon as possible Has the patient been seen by the PCP for this problem? NO Additional comments: Nadia Espino went to the eye doctor on 09/27/2016 and they could not figureout/or see anything being wrong. The eye doctor told her that she should get an MRI to see if there was anything behind her eye. Phone number Patient can be reached at: Cell number on file: Telephone Information: Best Time: PERLA Can we leave a detailed message on this number? YES Call taken on 09/28/2016 at 12:43 PM by Janet Ríos documented in this encounter Plan of Treatment Not on filedocumented as of this encounter Visit Diagnoses Not on filedocumented in this encounter Care Teams [employer] Relationship Specialty Start Date End Date Rupesh Grullon MD PCP - General Internal Medicine 04/03/10 documented as of this encounter
--- OUTSIDE RECORDS SUMMARY | 2021-12-16 09:45 | XMS_ITS | Encounter Summary ---
:1955 Author Organization [place] Address [facility] [place] [address] Care Team Providers Name Role Phone Alberto Grullon MD Primary Care Provider Reason for Visit Reason Comments RECHECK f/u ER visit for UTI Encounter Details Date Type Department Care Team Description 07/17/2012 Office Visit [facility] Alberto Grullon MD UTI (urinary tract infection) (Primary D x); Clinic [place] [address] [facility] Gross hematuria; 65[address] [facility], [address] Ganglion of left wrist [address] [place] [address] [place] [phone] Social History Tobacco Use Types Packs/Day [...] Sign Reading Time Taken Comments Blood Pressure 112/72 07/17/2012 4:36 PM CDT Pulse 63 07/17/2012 4:36 PM CDT Temperature 36.2 ??C (97.1 ??F) 07/17/2012 4:36 PM CDT Respiratory Rate - - Oxygen Saturation 98% 07/17/2012 4:36 PM CDT Inhaled Oxygen Concentration - - Weight 68.5 kg (151 lb) 07/17/2012 4:36 PM CDT Height 167.6 cm (5' 6) 07/17/2012 4:36 PM CDT Body Mass Index 24.37 07/17/2012 4:36 PM CDT documented in this encounter Progress Notes Alberto Grullon MD - 07/21/2012 8:16 AM CDT SUBJECTIVE: Nadia Espino, a 57 year old female scheduled an appointment to discuss the following issues: UTI (urinary tract infection) Gross hematuria Ganglion of left wrist Had hematuria one evening and before that, had abd pain Went to [facility] Given UA and then, UC done Which is negative Given pyridium and one antibiotic Now done Hematuria cleared up after one time No vaginal bleeding No previous UTI No trip Not related to intercourse Also left wrist one area is painful at times Medical, social, surgical, and family histories reviewed. ROS:10 point ROS of systems including Constitutional, Eyes, Respiratory, Cardiovascular, Gastroenterology, Genitourinary, Integumentary, Muscularskeletal, Psychiatric were all negative except for pertinent positives noted in my HPI. OBJECTIVE: BP 112/72 Pulse 63 Temp 97.1 ??F (36.2 ??C) (Oral) Ht 5' 6 (1.676 m) Wt 151 lb (68.493 kg) BMI 24.37 kg/m2 SpO2 98% EXAM: GENERAL APPEARANCE: healthy, alert and no distress RESP: lungs clear to auscultation - no rales, rhonchi or wheezes CV: regular rates and rhythm, normal S1 S2, no S3 or S4 and no murmur, click or rub ABDOMEN: soft, nontender, without hepatosplenomegaly or masses and bowel sounds normal MS- left wrist small ganglion ASSESSMENT/PLAN: 599.0 UTI (urinary tract infection) (primary encounter diagnosis) Comment: repeat UA Work up If any hematuria now This sounds like UTI Plan: UA reflex to Microscopic and Culture 599.71 Gross hematuria Comment: as above Plan: 727.41 Ganglion of left wrist 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 Weight as of this encounter: 151 lb(68.493 kg). BP completed using cuff size: regular Tesha Marte CMA documented in this encounter Plan of Treatment Not on filedocumented as of this encounter Procedures Procedure Name Priority Date/Time Associated Comments Diagnosis UA MACROSCOPIC WITH Routine 07/17/2012 4:55 PM UTI (urinary tr act Results for this REFLEX TO MICROSCOPIC CDT infection) proced ure are in AND CULTURE the results section. documented in this encounter Results (ABNORMAL) UA reflex to Microscopic and Culture (07/17/2012 4:55 PM CDT) [facility] Method Time Signature Color Urine Yellow [facility] Appearance Urine Clear [facility] Glucose Urine Negative NEG mg/dL [facility] Bilirubin Urine Negative NEG [facility] Ketones Urine Negative NEG mg/dL [facility] Specific [place] 1.020 1.003 - [place] Urine 1.035 [facility] Blood Urine Negative NEG [facility] pH Urine 7.5 (H) 5.0 - 7.0 [place] pH [facility] Protein Albumin Negative NEG mg/dL [place] Urine [facility] Urobilinogen 0.2 0.2 - 1.0 [facility] Urine EU/dL [facility] Nitrite Urine Negative NEG [facility] Leukocyte Negative NEG [place] Esterase Urine [facility] Source Midstream [place] Urine [facility] Specimen Anatomical Collection Method Collection Time Receive d Time (Source) Location / / Volume Laterality Urine specimen 07/17/2012 4:55 PM 013 4:56 (specimen) CDT PM CDT Authorizing Provider Result Anup Grullon MD LAB - URINE ORDERABLES Performing Organization Address City/State/ZIP Code Phon e Number [facility] [address] [place] [address] [phone] 150 [facility] [address] [place], [place] [address] documented in this encounter Visit Diagnoses Diagnosis UTI (urinary tract infection) - Primary Urinary tract infection, site not specif ied Gross hematuria Ganglion of left wrist Ganglion of joint documented in this encounter Care Teams Substation Designer Relationship Specialty Start Date End Date Alberto Grullon MD PCP - General Internal Medicine 04/03/10 documented as of this encounter
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
--- OUTSIDE RECORDS SUMMARY | 2021-12-16 09:45 | XMS_ITS | Encounter Summary ---
:1955 Author Organization [place] Address [address] [place] [address]. [place] [address] Care Team Providers Name Role Phone Rupesh Grullon MD Primary Care Provider Encounter Details Date Type Department Care Team Description 07/17/2012 Results Only [facility] Ricki Grullon MD [place] [address] [facility] 6545 [facility] [address] [place] [address] [place] [address] [phone] Social History Tobacco Use Types Packs/Day Years [...] Date/Time Associated Diagnosis Comme nts MA SCREENING 07/17/2012 12:35 PM Results for this DIGITAL BILATERAL CDT procedure are in the results section. documented in this encounter Results MA Screening Digital Bilateral (07/17/2012 12:35 PM CDT) Anatomical Region Laterality Modality Breast Bilateral Other Specimen (Source) Anatomical Collection Method Collection Time Re ceived Time Location / / Volume Laterality 07/17/2012 12:35 PM CDT Impressions 07/17/2012 3:35 PM CDT IMPRESSION: BI-RADS 2, BENIGN. RECOMMENDATION: Annual screening mammogr aphy. ESTRELLA BINGHAM MD Narrative 07/17/2012 3:35 PM CDT SCREENING MAMMOGRAM, BILATERAL, DIGITAL w/CAD - 07/17/2012 12:35 PM BREAST SYMPTOMS: No current breast compl aints. COMPARISON: ??07/10/2011, 06/30/2010, 04/21 PARENCHYMAL PATTERN: Heterogeneously den se, this lowers mammographic sensitivity. COMMENTS: No findings of suspicion for m alignancy. Scattered calcifications in the left superior sandoval st are stable in comparison with previous exams. Procedure Note Estrella Bingham MD - 07/17/2012For matting of this note might be different from the original. SCREENING MAMMOGRAM, BILATERAL, DIGITAL w/CAD - 07/17/2012 12:35 PM BREAST SYMPTOMS: No current breast compl aints. COMPARISON: 07/10/2011, 06/30/2010, 010 PARENCHYMAL PATTERN: Heterogeneously den se, this lowers mammographic sensitivity. COMMENTS: No findings of suspicion for m alignancy. Scattered calcifications in the left superior sand[address] st are stable in comparison with previous exams. IMPRESSION IMPRESSION: BI-RADS 2, BENIGN. RECOMMENDATION: Annual screening mammogr aphy. ESTRELLA BINGHAM MD Rupesh Grullon MD IMG MAMMOGRAPHY ORDERABLES documented in this encounter Visit Diagnoses Not on filedocumented in this encounter Care Teams Station Attendant Relationship Specialty Start Date End Date Rupesh Grullon MD PCP - General Internal Medicine 04/03/10 documented as of this encounter
--- OUTSIDE RECORDS SUMMARY | 2021-12-16 09:45 | XMS_ITS | Encounter Summary ---
:1955 Author Organization [place] Address [address] [place] [address]. [place] [address] Care Team Providers Name Role Phone Rupesh Grullon MD Primary Care Provider Reason for Visit Reason Comments Eye Problem Pain located behind the lef t eye. Eye Dr advised MRI, eye exam was normal. Encounter Details Date Type Department Care Team Description 10/01/2016 Office Visit [facility] Rupesh Grullon, Eye pain , left (Primary Dx); [facility] [place] [facility] Hyperlipidemia LDL goal <130 6545 [facility] 6545 [facility], [address] [place] [phone] [place] [id number] Social History Tobacco Use Types Packs/Day Years [...] Sign Reading Time Taken Comments Blood Pressure 131/81 10/01/2016 11:54 AM CDT Pulse 60 10/01/2016 11:54 AM CDT Temperature 36.2 ??C (97.1 ??F) 10/01/2016 11:54 AM CDT Respiratory Rate - - Oxygen Saturation 97% 10/01/2016 11:54 AM CDT Inhaled Oxygen Concentration - - Weight 70.8 kg (156 lb) 10/01/2016 11:54 AM CDT Height 167.6 cm (5' 6) 10/01/2016 11:54 AM CDT Body Mass Index 25.18 10/01/2016 11:54 AM CDT documented in this encounter Progress Notes Rupesh Grullon MD - 10/01/2016 11:45 AM CDT SUBJECTIVE: Nadia Espino is a 61 year old female who presents to clinic today for the following health issues: Patient went to [place] After return, she had left eye pain It happened all week off and on Nothing to now No vision loss No fever, chills Patient has no migraines Weather in [place] was cold Eye(s) Problem ?? Duration: 9 days ago ?? Description: Location: left Pain: YES Redness: YES Discharge: no ?? Accompanying signs and symptoms: No ?? History (Trauma, foreign body exposure,): None ?? Precipitating or alleviating factors (contact use): None ?? Therapies tried and outcome: Patient went to [facility] on 09/27/2016 Problem list and histories reviewed & adjusted, [...] Dispense Refill ??? NO ACTIVE MEDICATIONS 0 Reviewed and updated as needed this visit by clinical staffTobacco Allergies Meds Problems Reviewed and updated as needed this visit by Provider Allergies Meds Problems ROS: Constitutional, HEENT, cardiovascular, pulmonary, GI, , musculoskeletal, neuro, skin, endocrine and psych systems are negative, except as otherwise noted. OBJECTIVE: BP 131/81 (BP Location: Right arm, Cuff Size: Adult Regular) Pulse 60 Temp 97.1 ??F (36.2 ??C) (Oral) Ht 5' 6 (1.676 m) Wt 156 lb (70.8 kg) SpO2 97% BMI 25.18 kg/m2 Body mass index is 25.18 kg/(m^2). GENERAL: healthy, alert and no distress EYES: Eyes [...] masses and bowel sounds normal MS: no gross musculoskeletal defects noted, no edema SKIN: no suspicious lesions or rashes NEURO: Normal strength and tone, mentation intact and speech normal PSYCH: mentation appears normal, affect normal/bright ASSESSMENT/PLAN: 1. Eye pain, left Unclear reason No hx of family hisotry of migraines No vision issues - TSH WITH FREE T4 REFLEX - CRP inflammation - CBC with platelets - MR Brain w/o Contrast; Future 2. Hyperlipidemia LDL goal <130 Due for labs - Comprehensive metabolic panel zostavax advised Rupesh Grullon MD [facility] documented in this encounter Nursing Notes Tesha Marte, AMY - 10/01/2016 11:45 AM CDT Chief Complaint Patient presents with ??? Eye Problem Pain located behind the left eye. Eye Dr advised MRI, eye exam was normal. Initial BP 131/81 (BP Location: Right arm, Cuff Size: Adult Regular) Pulse 60 Temp 97.1 ??F (36.2 ??C) (Oral) Ht 5' 6 (1.676 m) Wt 156 lb (70.8 kg) SpO2 97% BMI 25.18 kg/m2 Estimated body mass index is 25.18 kg/(m^2) as calculated from the following: Height as of this encounter: 5' 6 (1.676 m). Weight as of this encounter: 156 lb (70.8 kg). Medication Reconciliation: complete. Tesha Marte CMA documented in this encounter Plan of Treatment Not on filedocumented as of this encounter Procedures Procedure Name Priority Date/Time Associated Diagnosis Comme nts TSH WITH FREE T4 Routine 10/01/2016 12:12 Eye pain, left Resul ts for this REFLEX PM CDT procedure are i n the results section. CRP INFLAMMATION Routine 10/01/2016 12:12 Eye pain, left Resul ts for this PM CDT procedure are i n the results section. COMPREHENSIVE Routine 10/01/2016 12:12 Hyperlipidemia LDL Resu lts for this METABOLIC PANEL PM CDT goal <130 procedure ar e in the results section. CBC WITH PLATELETS Routine 10/01/2016 12:12 Eye pain, left Res ults for this PM CDT procedure are i n the results section. documented in this encounter Results MR Brain w/o Contrast (10/02/2016 1:33 PM CDT) Anatomical Region Laterality Modality Head, SUBRAD MR NEURO, UMP MR NEURO Magn etic Resonance Specimen (Source) Anatomical Location Collection Method / Collectio n Time Received Time / Laterality Volume Impressions 10/02/2016 2:46 PM CDT IMPRESSION: 1. Few nonspecific supratentorial white matter and right maty signal hyperintensities without mass effect or diffusion abnormality. These are nonspecific but probably due to wireless manager darius small vessel ischemic disease given the patient's age. 2. No evidence for intracranial hemorrha ge, acute infarct, or any focal mass lesions. JERAD HAMPTON MD Narrative 10/02/2016 2:46 PM CDT MRI BRAIN WITHOUT CONTRAST October 02, 2016 1:33 PM HISTORY: Ocular pain, left eye. TECHNIQUE: Multiplanar, multisequence MR I of the brain without gadolinium IV contrast material. COMPARISON: None. FINDINGS: There are few tiny nonspecific punctate signal hyperintensities in the supratentorial w catalino matter numbering approximately 10. These are not associat ed with any mass effect. There is also a subtle signal hyperintensity i n the right maty without mass effect. The brain parenchyma is otherwis e normal. Vascular structures are patent at the skull base. There is n o evidence for any intracranial mass lesions. Orbits are no rmal as visualized on this study. Procedure Note Jerad Hampton MD - 10/02/2016Form atting of this note might be different from the original. MRI BRAIN WITHOUT CONTRAST October 02, 2016 1:33 PM HISTORY: Ocular pain, left eye. TECHNIQUE: Multiplanar, multisequence MR I of the brain without gadolinium IV contrast material. COMPARISON: None. FINDINGS: There are few tiny nonspecific punctate signal hyperintensities in the supratentorial w catalino matter numbering approximately 10. These are not associat ed with any mass effect. There is also a subtle signal hyperintensity i n the right maty without mass effect. The brain parenchyma is otherwis e normal. Vascular structures are patent at the skull base. There is n o evidence for any intracranial mass lesions. Orbits are no rmal as visualized on this study. IMPRESSION: 1. Few nonspecific supratentorial white matter and right maty signal hyperintensities without mass effect or diffusion abnormality. These are nonspecific but probably due to wireless manager darius small vessel ischemic disease given the patient's age. 2. No evidence for intracranial hemorrha ge, acute infarct, or any focal mass lesions. JERAD HAMPTON MD Rupesh Grullon MD [facility] MRI ORDERABLES (ABNORMAL) Comprehensive metabolic panel (10/01/2016 12:12 PM CDT) [facility] Method Time Signature Sodium 140 133 - 144 [facility] mmol/L [facility] Potassium 4.6 3.4 - 5.3 [facility] mmol/L [facility] Chloride 107 94 - 109 [facility] mmol/L [facility] Carbon Dioxide 28 20 - 32 [facility] mmol/L [facility] Anion Gap 5 3 - 14 [facility] mmol/L [facility] Glucose 112 (H) 70 - 99 [place] mg/dL [facility] Urea Nitrogen 16 7 - 30 [place] mg/dL [facility] Creatinine 0.80 0.52 - [place] 1.04 mg/dL [facility] GFR Estimate 74 >60 [place] mL/min/1.7 [facility] m2 [facility] Comment: Non GFR Calc GFR Estimate If Black 89 >60 mL/min/1.7m2 F [facility] Comment: GFR Calc Calcium 9.4 8.5 - 10.1 mg/dL [place] [facility] ICS [facility] Bilirubin Total 0.6 0.2 - 1.3 mg/dL [facility] Albumin 4.2 3.4 - 5.0 g/dL [facility] S [facility] Protein Total 7.4 6.8 - 8.8 g/dL [place] [facility] INICS [facility] Alkaline Phosphatase 66 40 - 150 U/L [facility] EW [facility] ALT 39 0 - 50 U/L [facility] AST 22 0 - 45 U/L [facility] Specimen Anatomical Collection Method Collection Time Receive d Time (Source) Location / / Volume Laterality Blood specimen 10/01/2016 12:12 7 (specimen) PM CDT 12:13 PM CDT Rupesh Grullon MD LAB - BLOOD ORDERABLES Performing Organization Address City/State/ZIP Code Phon e Number [facility] [address] [place] [address] CBC with platelets (10/01/2016 12:12 PM CDT) P athologist Signature WBC 8.2 4.0 - 11.0 [place] 10e9/L [facility] RBC Count 4.88 3.8 - 5.2 [place] 10e12/L [facility] Hemoglobin 14.7 11.7 - [place] 15.7 g/dL [facility] Hematocrit 44.4 35.0 - [place] 47.0 % [facility] MCV 91 78 - 100 [facility] MCH 30.1 26.5 - [place] 33.0 pg [facility] MCHC 33.1 31.5 - [place] 36.5 g/dL [facility] RDW 13.1 10.0 - [place] 15.0 % [facility] Platelet Count 265 150 - 450 [place] 10e9/L [facility] Specimen Anatomical Collection Method Collection Time Receive d Time (Source) Location / / Volume Laterality Blood specimen 10/01/2016 12:12 7 (specimen) PM CDT 12:13 PM CDT Rupesh Grullon MD LAB - BLOOD ORDERABLES Performing Organization Address City/State/ZIP Code Phon e Number [facility] [address] [place] [address] CRP inflammation (10/01/2016 12:12 PM CDT) Analysis Performed At Patho logist Time Signature CRP Inflammation <2.9 0.0 - 8.0 [facility] mg/L [facility] Specimen Anatomical Collection Method Collection Time Receive d Time (Source) Location / / Volume Laterality Blood specimen 10/01/2016 12:12 7 (specimen) PM CDT 12:13 PM CDT Rupesh Grullon MD LAB - BLOOD ORDERABLES Performing Organization Address City/State/ZIP Code Phon e Number [facility] [address] [place] [address] [facility] TSH WITH FREE T4 REFLEX (10/01/2016 12:12 PM CDT) P athologist Signature TSH 0.65 0.40 - 4.00 [facility] mU/L [facility] Specimen Anatomical Collection Method Collection Time Receive d Time (Source) Location / / Volume Laterality Blood specimen 10/01/2016 12:12 7 (specimen) PM CDT 12:13 PM CDT Rupesh Grullon MD LAB - BLOOD ORDERABLES Performing Organization Address City/State/ZIP Code Phon e Number [facility] [address] [place] [address] documented in this encounter Visit Diagnoses Diagnosis Eye pain, left - Primary Hyperlipidemia LDL goal <130 Other and unspecified hyperlipidemia Eye pain, left documented in this encounter Care Teams Household Appliance Mechanic Relationship Specialty Start Date End Date Rupesh Grullon MD PCP - General Internal Medicine 04/03/10 documented as of this encounter
--- OUTSIDE RECORDS SUMMARY | 2021-12-16 09:45 | XMS_ITS | Encounter Summary ---
:1955 Author Organization [place] Address [address] [place] [address] Care Team Providers Name Role Phone Rupesh Grullon MD Primary Care Provider Encounter Details Date Type Department Care Team Description 09/06/2015 Telephone [facility] Bessy Herrera, RN [address] [place] [address] Social History Tobacco Use Types Packs/Day Years [...] this encounter Miscellaneous Notes Telephone Encounter - Bessy Herrera RN - 09/06/2015 8:10 PM CDT Call Type: Triage Call Presenting Problem: Patient calls and states she has a history of UTI and in 2012 and was told by Dr. Grullon that she should call when she has symptoms and they will give her an antibiotic. Noted that patient called last evening with symptoms and division traffic superintendent MD directed her into urgent care or clinic for evaluation/treatment. Patient did not go in and calls again today, saying she took urostat but she is having more pain with urination and she would like antibiotic. Again explained that since it is after hours and since it has been several years since she has been seen, she would need to go into urgent care or the clinic for evaluation. Denies flank pain, fever, hematuria. Reports frequency and pain on urination. She would like to take something for pain tonight and have an appointment. Transferred to scheduling for assistance with appointment and recommended tylenol, fluids and cranberry juice tonight. Triage Note: Guideline Title: Urinary Symptoms - Female Recommended Disposition: See Provider within 24 hours Original Inclination: Wanted to speak with a nurse Override Disposition: Intended Action: See /[place] Appt Physician Contacted: No Has one or more urinary tract symptoms AND has not been previously evaluated ? YES Blood in urine ? NO Abnormal vaginal discharge (such as increased quantity, abnormal color, consistency, odor) ? NO Flank pain ? NO New or worsening signs and symptoms that may indicate shock ? NO Any temperature elevation in a frail elderly, immunocompromised or person ? NO Current or recent urinary tract instrumentation AND urinary tract symptoms OR no urine flow ? NO Urinary tract symptoms AND any flank or low back pain ? NO Urinary tract symptoms AND fever 101.5 F (38.6 C) or higher or vomiting ? NO Any unexpected urinary symptoms following urinary tract or abdominal surgery within timeframe specified by provider ? NO Unbearable abdominal/pelvic pain ? NO No urination for 12 or more hours ? NO Physician Instructions: Care Advice: Call provider if you develop flank or low back pain, fever, generally feel sick. SYMPTOM / CONDITION MANAGEMENT Call provider if urine is pink, red, smoky or cola colored. Increase intake of fluids. Try to drink 8 oz. (.2 liter) every hour when awake, unless on restricted fluids for other medical reasons. Include at least two 8 oz. (.2 liter) glasses of unsweetened cranberry juice each day. Take sips of fluid or eat ice chips if nauseated or vomiting. Tell your provider if you are taking warfarin, Coumadin, Pradaxa, Xarelto, or any other blood thinner and drinking cranberry juice or taking cranberry capsules. Analgesic/Antipyretic Advice - Acetaminophen: Consider acetaminophen as directed on label or by pharmacist/provider for pain or fever. PRECAUTIONS: - Use if there is no history of liver disease, alcoholism, or intake of three or more alcohol drinks per day - Only if approved by provider during or when - Do not exceed recommended dose or frequency. Do not take more than 3000 milligrams (mg) in 24 hours. Do not take this medicine for more than 10 days unless recommended by your provider. - During , acetaminophen should not be taken more than 3 consecutive days without telling provider - To make sure you don't take too much, check other medicines you take to see if they also contain acetaminophen. documented in this encounter Plan of Treatment Not on filedocumented as of this encounter Visit Diagnoses Not on filedocumented in this encounter Care Teams Seasonal Greenery Bundler Relationship Specialty Start Date End Date Rupesh Grullon MD PCP - General Internal Medicine 04/03/10 documented as of this encounter
--- OUTSIDE RECORDS SUMMARY | 2021-12-16 09:45 | XMS_ITS | Encounter Summary ---
:1955 Author Organization [place] Address [facility] [place] [address] Care Team Providers Name Role Phone Rupesh Grullon MD Primary Care Provider Reason for Referral Referral not Required - Closed Specialty Diagnoses / Procedures Referred By Contact Refer red To Contact Diagnoses Foot injury Rupesh Grullon MD [facility] AND [address] [place] [address] [address] [facility] [place] [address] [place] [address] [facility] [place] [address] [place] [address] Phone: Fax: Referral ID Status Reason Start Date Expiration Date Visits Requ ested Visits Authorized [id number] Closed 10/01/2012 03/30/2013 1 1 Reason for Visit Reason Onset Date Comments Referral 09/30/2012 ankle injury Encounter Details Date Type Department Care Team Description 09/30/2012 Telephone [facility] Rupehs Grullon MD Referral (ankle injury) Clinic [place] 65[address] [facility] [address] [place] [address], [facility] [address] [place] [address] [place] [phone] Social History Tobacco Use Types Packs/Day Years [...] this encounter Miscellaneous Notes Telephone Encounter - Rupesh Grullon MD - 10/01/2012 3:54 PM CDT Done, Thanks Telephone Encounter - Aimee Ho - 10/01/2012 2:43 PM CDT Pt states that at the end of August she fell mowing injuring her foot. She iced and elevated at the time and has been wearing sensible shoes since. Saturday night she noticed bruising and swelling after being on her foot with high heels. The bruising has now resolved. It doesn't bother her when she is working out. She did have x-ray over the 11 of September at [facility] of the foot, has asked for the records shila sent here. No pain in the bottom of her foot or ankle. Pt is not sure what is going on but wants to have this checked out by a adjunct instructor in economics. Is asking for referral to Dr. Caraballo. Appt has already been made. To PCP. Please send referral for Dr. Caraballo if appropriate. Pt states she needs this for her insurance. Aimee Ho RN, BSN Telephone Encounter - Aimee Ho - 10/01/2012 11:36 AM CDT Left message for patient to return call. Need to get information on symptoms to send to Dr. Grullon for referral. Appt with Dr. Caraballo has been made for 10/07/12. Aieme Vic RN, BSN Telephone Encounter - Deborah Arreola - 10/01/2012 9:34 AM CDT Pt called back Confirmed her appt Telephone Encounter - Radha Casarez - 09/30/2012 6:06 PM CDT Called patient and LM with spouse for patient to call back. Radha Casarez RN Telephone Encounter - Pricilla Peña - 09/30/2012 3:34 PM CDT Pt would like a referral to have her ankle checked out. She had injured it around the 11 of September and would like a referral to a adjunct instructor in economics. I have scheduled an appt with Dr. Caraballo next Saturday however pt would like a referral for insurance purposes. [phone] (home) [phone] (work) If needed to call back Thank you, Pricilla documented in this encounter Plan of Treatment Scheduled Referrals Name Type Priority Associated Diagnoses Order S [facility] PODIATRY/FOOT & ANKLE Referral Routine Foot injury Ordere d: 10/01/2012 SURGERY REFERRAL documented as of this encounter Visit Diagnoses Diagnosis Foot injury - Primary Injury, other and unspecified, knee, leg , ankle, and foot documented in this encounter Care Teams Pens And Pencils Dipper Relationship Specialty Start Date End Date Rupesh Grullon MD PCP - General Internal Medicine 04/03/10 documented as of this encounter
--- OUTSIDE RECORDS SUMMARY | 2021-12-16 09:45 | XMS_ITS | Encounter Summary ---
:1955 Author Organization [place] Address [address] [place] [address] Care Team Providers Name Role Phone Rupesh Grullon MD Primary Care Provider Reason for Visit Reason Onset Date Comments ER F/U 07/11/2012 ER F/U 07/10/12 DX: UTI, ER visit = 1 Encounter Details Date Type Department Care Team Description 07/11/2012 Telephone [facility] Rupesh Grullon MD ER F/U (ER F/U 07/10/12 Clinic [place] [address]AYO DX: UTI, ER visit = 1 ) 6545 [facility] [address] [place] [address] [place] [address] Social History Tobacco Use Types [...] this encounter Miscellaneous Notes Telephone Encounter - Gardenia Ventura - 07/11/2012 12:06 PM CDT ER F/U 07/10/12 DX: UTI, ER visit = (home) [phone] (work) documented in this encounter Plan of Treatment Not on filedocumented as of this encounter Visit Diagnoses Not on filedocumented in this encounter Care Teams Care Transitions Nurse Relationship Specialty Start Date End Date Rupesh Grullon MD PCP - General Internal Medicine 04/03/10 documented as of this encounter
--- OUTSIDE RECORDS SUMMARY | 2021-12-16 09:45 | XMS_ITS | Encounter Summary ---
:1955 Author Organization [place] Address [facility] [place] [address] Care Team Providers Name Role Phone Rupesh Grullon MD Primary Care Provider Reason for Visit (Routine) - Closed Specialty Diagnoses / Procedures Referred By Contact Refer red To Contact Radiology / Radiology. Diagnoses EPIC ORDER sb pt Sh Mri Procedures MR BRAIN WO [address] [place] [address] Phone: Referral ID Status Reason Start Date Expiration Date Visits Requ ested Visits Authorized [id number] Closed 10/01/2016 10/01/2017 1 1 Encounter Details Date Type Department Care Team Description 10/02/2016 Hospital Encounter [facility] Anali Grullon ot, MD Eye pain, left [facility] [address] [place] [phone] [place] [id number] Social History Tobacco Use Types Packs/Day Years [...] Priority Date/Time Associated Diagnosis Comme nts MR BRAIN W/O Routine 10/02/2016 1:33 PM Eye pain, left Results for this CONTRAST CDT procedure are i n the results [...] These are nonspecific but probably due to whanau support worker darius small vessel ischemic disease given the [...] These are nonspecific but probably due to whanau support worker darius small vessel ischemic disease given the patient's age. 2. No evidence for intracranial hemorrha ge, acute infarct, or any focal mass lesions. JERAD HAMPTON MD Rupesh Grullon MD IMG MRI ORDERABLES documented in this encounter Visit Diagnoses Diagnosis Eye pain, left documented in this encounter Care Teams Professional Nursing Tutor Relationship Specialty Start Date End Date Rupesh Grullon MD PCP - General Internal Medicine 04/03/10 documented as of this encounter
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
--- OUTSIDE RECORDS SUMMARY | 2021-12-16 09:45 | XMS_ITS | Encounter Summary ---
:1955 Author Organization [facility] Address [address] [place] [address]. [place] [address] Care Team Providers Name Role Phone Rupesh Grullon MD Primary Care Provider Reason for Visit (Routine) - Closed Specialty Diagnoses / Procedures Referred By Contact Refer red To Contact Radiology Diagnoses SCREENING BILATERAL-DIGITAL Procedure Notes: 07/10/2011, 06/30/2010, 04/21/2009 Sh Breast Imaging Procedures RADIOLOGY [address] [facility], [address] [place] [address] Phone: Referral ID Status Reason Start Date Expiration Date Visits Requ ested Visits Authorized [id number] Closed 07/10/2012 07/10/2013 1 1 Encounter Details Date Type Department Care Team Description 07/17/2012 Hospital Encounter [facility] Anali Grullon ot, MD [facility] Breast [address] [facility] [address], [address] [place] [address] [place] [address] [phone] Social History Tobacco Use Types Packs/Day Years [...] End Date NO ACTIVE MEDICATIONS 0 04/03/2010 phenazopyridine (PYRIDIUM) Take 1 tablet by 9 tablet 0 04/201209/07/2015 100 MG tablet mouth 3 times daily as needed for pain (urinary symptoms) for 3 days. documented as of this encounter Plan of Treatment Not on filedocumented as of this encounter Visit Diagnoses Not on filedocumented in this encounter Care Teams Executive Secretary Social Welfare Relationship Specialty Start Date End Date Rupesh Grullon MD PCP - General Internal Medicine 04/03/10 documented as of this encounter
--- OUTSIDE RECORDS SUMMARY | 2021-12-16 09:45 | XMS_ITS | Encounter Summary ---
:1955 Author Organization [place] Address [facility] [place] [address] Care Team Providers Name Role Phone Rupesh Grullon MD Primary Care Provider Reason for Visit (Routine) - Closed Specialty Diagnoses / Procedures Referred By Contact Refer red To Contact Radiology / Radiology. Diagnoses Prev [facility] Sh Breast Imaging Procedures MA SCREENING DIGITAL BILATERAL [address] [facility], [address] [place] [address] Phone: Referral ID Status Reason Start Date Expiration Date Visits Requ ested Visits Authorized [id number] Closed 07/10/2013 01/06/2014 1 1 Encounter Details Date Type Department Care Team Description 07/15/2013 Hospital Encounter [facility] Rupesh Grullon, Vi sit for screening [facility] Breast mammogram Center [address] [facility] [address], [address] [place] [address] [place] [address] Social History Tobacco Use Types Packs/Day [...] Associated Diagnosis Comme nts MA SCREENING Routine 07/15/2013 8:20 AM Visit for screening Re sults for this DIGITAL BILATERAL CDT mammogram procedure are in the results section. documented in this encounter Results MA Screening Digital Bilateral (07/15/2013 8:20 AM CDT) Anatomical Region Laterality Modality Breast Bilateral Mammography Specimen (Source) Anatomical Location Collection Method / Collectio n Time Received Time / Laterality Volume Impressions 07/15/2013 8:53 AM CDT IMPRESSION: BI-RADS CATEGORY: 1 - NEGATIVE. RECOMMENDED FOLLOW-UP: Annual Mammograph y. Recommend routine annual screening mammo graphy. Exam results letter mailed to patient. JOSE CRUZ NG MD Narrative 07/15/2013 8:53 AM CDT SCREENING MAMMOGRAM, BILATERAL, DIGITAL w/CAD - 07/15/2013 8:20 AM. BREAST SYMPTOMS: No current breast compl aints. COMPARISON: ??07/17/2012, 07/10/2011, 011, 04/21/2009. BREAST DENSITY: Heterogeneously dense, l imiting mammographic sensitivity. COMMENTS: No findings of suspicion for m alignancy. ? Rupesh Grullon MD IMG MAMMOGRAPHY ORDERABLES documented in this encounter Visit Diagnoses Diagnosis Visit for screening mammogram Other screening mammogram documented in this encounter Care Teams Botany Teacher Relationship Specialty Start Date End Date Rupesh Grullon MD PCP - General Internal Medicine 04/03/10 documented as of this encounter
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
--- OUTSIDE RECORDS SUMMARY | 2021-12-16 09:45 | XMS_ITS | Encounter Summary ---
:1955 Author Organization [place] Address [facility] [place] [place] [address] Care Team Providers Name Role Phone Rupesh Grullon MD Primary Care Provider Reason for Visit (Routine) - Closed Specialty Diagnoses / Procedures Referred By Contact Refer red To Contact Radiology / Radiology. Diagnoses sb pt Sh Breast Imaging Procedures MA SCREENING DIGITAL BILATERAL [address] [facility], [address] [place] [address] Phone: Referral ID Status Reason Start Date Expiration Date Visits Requ ested Visits Authorized [id number] Closed 05/01/2016 05/01/2017 1 1 Encounter Details Date Type Department Care Team Description 05/02/2016 Hospital Encounter [facility] Rupesh Grullon, Vi sit for screening [facility] mamm[facility] [address] [facility] [address], [address] [place] [address] [place] [address] Social History Tobacco Use Types [...] NO ACTIVE MEDICATIONS 0 04/03/2010 ciprofloxacin (CIPRO) 250 Take 1 tablet (250 10 tablet 0 10/01/2016 MG tabletIndications: mg) by mouth 2 Urinary tract infection times daily without hematuria, site unspecified documented as of this encounter Plan of Treatment Not on filedocumented as of this encounter Procedures Procedure Name Priority Date/Time Associated Diagnosis Comme nts MA SCREENING Routine 05/02/2016 9:21 AM Visit for screening Re sults for this BILATERAL W/ BUCK LOGISTICS LOSS PREVENTION MANAGER mammogram procedure are in the results section. documented in this encounter Results MA Screen Bilateral w/Buck (05/02/2016 9:21 AM LOGISTICS LOSS PREVENTION MANAGER) Anatomical Region Laterality Modality Breast Bilateral Mammography Specimen (Source) Anatomical Location Collection Method / Collectio n Time Received Time / Laterality Volume Impressions 05/02/2016 11:48 AM LOGISTICS LOSS PREVENTION MANAGER IMPRESSION: BI-RADS CATEGORY: 1 - ??NEGATIVE. RECOMMENDED FOLLOW-UP: Annual Mammograph y. The patient will be notified of the resu lts. SUDHAKAR COLON Narrative 05/02/2016 11:48 AM LOGISTICS LOSS PREVENTION MANAGER Examination: Bilateral digital screening mammography with computer aided detection including digital breast tomosynthesis, 05/02/2016 9:21 AM. Comparison: 07/15/2013, 07/27/2012, 03/2011, 06/30/2010 History: No current breast concerns. Dixon hamm great aunt and sister with breast cancer. BREAST DENSITY: Heterogeneously dense. COMMENTS: ??No suspicious finding. Procedure Note Sudhakar Colon MD - 05/02/2016 Examination: Bilateral digital screening mammography with computer aided detection including digital breast tomosynthesis, 05/02/2016 9:21 AM. Comparison: 07/15/2013, 07/27/2012, 03/2011, 06/30/2010 History: No current breast concerns. Dixon hamm great aunt and sister with breast cancer. BREAST DENSITY: Heterogeneously dense. COMMENTS: No suspicious finding. IMPRESSION: BI-RADS CATEGORY: 1 - NEGATI VE. RECOMMENDED FOLLOW-UP: Annual Mammograph y. The patient will be notified of the resu lts. SUDHAKAR COLON Rupesh Grullon MD IMG MAMMOGRAPHY ORDERABLES documented in this encounter Visit Diagnoses Diagnosis Visit for screening mammogram Other screening mammogram documented in this encounter Care Teams Local Company Hazmat Driver Relationship Specialty Start Date End Date Rupesh Grullon MD PCP - General Internal Medicine 04/03/10 documented as of this encounter
--- OUTSIDE RECORDS SUMMARY | 2021-12-16 09:45 | XMS_ITS | Encounter Summary ---
:1955 Author Organization [place] Address [address] [place] [address]. [place] [address] Care Team Providers Name Role Phone Rupesh Grullon MD Primary Care Provider Reason for Referral Consultation - Closed Specialty Diagnoses / Procedures Referred By Contact Refer red To Contact Diagnoses Tension headache Rupesh Grullon MD [facility] [address] [place] [address] [place] [address] [place] [address] Phone: Fax: Referral ID Status Reason Start Date Expiration Date Visits Requ ested Visits Authorized [id number] Closed 10/02/2016 10/02/2017 1 1 Reason for Visit Reason Onset Date Comments Toe Injury 10/05/2014 has questions about popped blister on toe Encounter Details Date Type Department Care Team Description 10/05/2014 Telephone [facility] Rupesh Grullon MD Toe Injury (has [facility] [place] [address] questions about popped [address], [address] blister on toe) [address] [place] [address] [place] [address] Social History Tobacco Use Types [...] this encounter Miscellaneous Notes Telephone Encounter - Ramon Shelton, RN - 10/05/2014 2:24 PM CDT FYI to PCP: Friction blister on top of one of her toes. She believes she got it from wearing swim fins (she swims regularly). She said it got too painful last night and so she drained the blister. Drainage is milky, very red all around. She is currently applying Neosporin and covering with band-aid. Per huddle with [place], I advised that she not go swimming until wound is healed for risk offurther infection. I also advised that she come in to have the wound assessed, she stated that she wanted to watch it for another couple days to see if it would heal. Andrea Shelton, RN Telephone Encounter - Annie Smyth - 10/05/2014 2:10 PM CDT Contact First & Last Name: patient Reason for encounter: has questions about popped blister on toe-it is infected- can she go in a pool Expecting call back:YES Would you prefer to have someone call you back or can someone call and leave a detail message: YES at [phone] Best time to call back: any Alternate phone number: n/a Annie Smyth documented in this encounter Plan of Treatment Scheduled Referrals Name Type Priority Associated Diagnoses Order [facility] NEUROLOGY ADULT REFERRAL Referral Routine Tension headache Ordered: 10/02/2016 documented as of this encounter Visit Diagnoses Diagnosis Tension headache - Primary documented in this encounter Care Teams Tower Erector Relationship Specialty Start Date End Date Rupesh Grullon MD PCP - General Internal Medicine 04/03/10 documented as of this encounter
--- OUTSIDE RECORDS SUMMARY | 2021-12-16 09:45 | XMS_ITS | Encounter Summary ---
:1955 Author Organization [place] Address [facility] [place] [address] Care Team Providers Name Role Phone Rupesh Grullon MD Primary Care Provider Reason for Visit Reason Onset Date Comments Medication Request 09/05/2015 Nurse Advice Line 09/05/2015 Encounter Details Date Type Department Care Team Description 09/05/2015 Telephone [facility] Rupesh Grullon MD Medication Request; Clinic [place] [address] [facility] Nurse Advice Line [address] [facility] [address] [place] [address] [place] [address] Social History Tobacco Use Types [...] this encounter Miscellaneous Notes Telephone Encounter - Estrellita Clifford RN - 09/05/2015 5:24 PM CDT S-(situation): Patient called stating that she has frequency and urgency with urination. She states that her doctor had told her that she could call in when she feels that she has a UTI to obtain an antibiotic. Patient has not been seen in clinic since 07/2012. Per patient, she would like to have the doctor paged to request a medication. B-(background): See above. A-(assessment):Patient complains of frequency and urgency of urination. She denies burning, hematuria, fever or back pain. When suggested that she should be seen in clinic or go in for urine testing, she did not want to do this. She requests that the doctor be paged. Page placed, is quality control engineer for Dr. Grullon. R-(recommendations): Per Dr. Victor, patient should go into urgent care or be seen in clinic. Patientadvised of provider advice. Estrellita Clifford RN [facility] [phone] Telephone Encounter - Digna Castanon RN - 09/05/2015 5:04 PM CDT Called Pt to discuss below. Left detailed message advising call back. Pt hasnt been seen since 07/17/12. Digna Castanon RN Telephone Encounter - Filomena Monzon - 09/05/2015 4:50 PM CDT Reason for Call: Other call back Detailed comments: pt would like something for a bladder infec dr grullon told her to just call in to the office next time. [facility] [id number] - [place], [place] - [address] [facility] [address] [facility] Phone Number Patient can be reached at: Cell number on file: Telephone Information: Best Time: any Can we leave a detailed message on this number? YES Call taken on 09/05/2015 at 4:50 PM by Filomena Monzon documented in this encounter Plan of Treatment Not on filedocumented as of this encounter Visit Diagnoses Not on filedocumented in this encounter Care Teams Curriculum And Instruction Director Relationship Specialty Start Date End Date Rupesh Grullon MD PCP - General Internal Medicine 04/03/10 documented as of this encounter
--- OUTSIDE RECORDS SUMMARY | 2021-12-16 09:46 | XMS_ITS | Encounter Summary ---
:1955 Author Organization [place] Address [address] [place] [address] Care Team Providers Name Role Phone Doctor, None MD Primary Care Provider Unavailable Encounter Details Date Type Department Care Team Description [facility]/2009 [facility] PA-C [facility] [address] [place] [address] (Wo rk) Social History Tobacco Use Types Packs/Day Years Used Date Never Assessed Sex Assigned at Date Recorded Not on file documented as of this encounter Plan of Treatment Not on filedocumented as of this encounter Procedures Procedure Name Priority Date/Time Associated Diagnosis Comme Merged with [facility] MAMMO SCREEN Routine 04/21/2009 12:48 PM Resul ts for this BILATATERAL, INCL FILM PROCESS OPERATOR procedure are in CAD WHEN PERF the results section. documented in this encounter Results SCREENING MAMMOGRAPHY DIGITAL (BILAT) (04/21/2009 12:48 PM FILM PROCESS OPERATOR) Specimen (Source) Anatomical Collection Method Collection Time Re ceived Time Location / / Volume Laterality 04/21/2009 12:48 PM FILM PROCESS OPERATOR Impressions RADIOLOGY RESULTS - 04/27/2009 7:[address] SCREENING MAMMOGRAM, BILATERAL, DIGITAL w/CAD - April 21, 2009 BREAST SYMPTOMS: None reported. COMPARISON: 03/25/2008, 11/29/2005. ?? PARENCHYMAL PATTERN: Extremely dense, li mits mammographic sensitivity. COMMENTS: Widely distributed bilateral p arenchymal microcalcifications look unchanged. Annual mammography is re commended to monitor them for continuing stability. IMPRESSION: BI-RADS 2, BENIGN. Katherine Berg PA-C SPECIAL IMAGING STUDIES Performing Organization Address City/State/ZIP Code Phon e Number RADIOLOGY RESULTS documented in this encounter Visit Diagnoses Not on filedocumented in this encounter Care Teams Sterile Products Processor Relationship Specialty Start Date End Date Doctor, None, PCP - General 04/26/01 04/02/10 documented as of this encounter
--- OUTSIDE RECORDS SUMMARY | 2021-12-16 09:46 | XMS_ITS | Encounter Summary ---
:1955 Author Organization [place] Address [facility] [place] [address] Care Team Providers Name Role Phone Rupesh Grullon MD Primary Care Provider Reason for Visit Reason Onset Date Comments Fever 07/30/2011 Encounter Details Date Type Department Care Team Description 07/30/2011 Telephone [facility] Ricki Grullon MD Fever [place] [address] [facility] [address] [facility], [address] [place] [address] [place] [address] [phone] Social History Tobacco Use Types Packs/Day Years Used Date Never Smoker Alcohol Use Standard Drinks/Week Comments Yes 0 [...] this encounter Miscellaneous Notes Telephone Encounter - Digna Buenrostro - 07/30/2011 1:41 PM CDT Spoke with patient's spouse, Sukhjinder. Patient started feeling ill around 10-11 am yesterday. Fever around 101. Did get up to 102 this morning. They have been pushing fluids and taking ibuprofen. Other symptoms include headaches, body aches, fatigue. Denies any other symptoms. Advised to continue pushing fluids, taking ibuprofen and try alternating with Tylenol. Call back if fever becomes higher or with any new/worsening symptoms. Sukhjinder agrees with plan. Digna Buenrostro RN documented in this encounter Plan of Treatment Not on filedocumented as of this encounter Visit Diagnoses Not on filedocumented in this encounter Care Teams Chair Spring Assembler Relationship Specialty Start Date End Date Rupesh Grullon MD PCP - General Internal Medicine 04/03/10 documented as of this encounter
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
--- OUTSIDE RECORDS SUMMARY | 2021-12-16 09:46 | XMS_ITS | Encounter Summary ---
:1955 Author Organization [place] Address [address] [place] [address] Care Team Providers Name Role Phone Doctor, None MD Primary Care Provider Unavailable Encounter Details Date Type Department Care Team Description 03/14/2010 Results Only [facility] Baudilio Butcher, Hospital Results EMERGENCY PHYSIC [facility] [address] [facility] [address] [place], [place] [address] (Wo rk) Social History Tobacco Use Types Packs/Day Years Used Date Never Assessed Sex Assigned at Date Recorded Not on file documented as of this encounter Plan of Treatment Not on filedocumented as of this encounter Procedures Procedure Name Priority Date/Time Associated Diagnosis Comme nts XR SACRUM AND Routine 03/14/2010 7:11 PM Results for this COCCYX 2 VIEWS UNIT TECHNICIAN procedure are in the results section. XR PELVIS 1/2 VIEWS Routine 03/14/2010 7:11 PM Re sults for this UNIT TECHNICIAN procedure are i n the results section. documented in this encounter Results X-ray Pelvis 1-2 vws (03/14/2010 7:11 PM UNIT TECHNICIAN) Specimen (Source) Anatomical Collection Method Collection Time Re ceived Time Location / / Volume Laterality 03/14/2010 7:11 PM UNIT TECHNICIAN Impressions RADIOLOGY RESULTS - 03/14/2010 7:[address] PELVIS 1-2 VIEW(S) Mar 14, 2010 7:11:00 P M HISTORY: ??fall, ??sacral pain, FINDINGS: Negative. Chriss Butcher MD IMG DIAGNOSTIC IMAGING ORDER MIGUELANGEL Performing Organization Address City/State/ZIP Code Phon e Number RADIOLOGY RESULTS X-ray Sacrum and coccyx 2 vw (03/14/2010 7:11 PM UNIT TECHNICIAN) Specimen (Source) Anatomical Collection Method Collection Time Re ceived Time Location / / Volume Laterality 03/14/2010 7:11 PM UNIT TECHNICIAN Impressions RADIOLOGY RESULTS - 03/14/2010 7:[address] SACRUM AND COCCYX 2 VIEW Mar 14, 2010 7:1 1:00 PM HISTORY: ??fall, ??sacral pain, FINDINGS: Negative. Chriss Butcher MD IMHari DIAGNOSTIC IMAGING ORDER MIGUELANGEL Performing Organization Address City/State/ZIP Code Phon e Number RADIOLOGY RESULTS documented in this encounter Visit Diagnoses Not on filedocumented in this encounter Care Teams Solid Propellant Processor Relationship Specialty Start Date End Date Doctor, None, PCP - General 04/26/01 04/02/10 documented as of this encounter
--- OUTSIDE RECORDS SUMMARY | 2021-12-16 09:46 | XMS_ITS | Encounter Summary ---
:1955 Author Organization [place] Address [address] [place] [address]. [place] [address] Care Team Providers Name Role Phone Rupesh Grullon MD Primary Care Provider Reason for Visit Reason Onset Date Comments Nurse Advice Line 01/23/2012 Encounter Details Date Type Department Care Team Description 01/23/2012 Telephone [facility] Ricki Grullon MD Nurse Advice Line [place] [address] [facility] [address] [facility], [address] [place] [address] [place] [address] [phone] Social History Tobacco Use Types Packs/Day Years [...] encounter Miscellaneous Notes Telephone Encounter - Huong Hays - 01/23/2012 8:24 PM CST [facility] Triage Call Report Patient Name: Nadia Espino Call Date & Time: 01/23/2012 5:31:29PM Patient Phone: PCP Name: Rupesh Grullon MRN: Patient [address]: [address] [place] [address] Patient Date of : 1955 Age: 56 yr. 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 I was at the chiropractor and they did an adjustment and I am in pain.I have a bulging/slipped disc.I was on the floor crying. Hasnt taken anything.Advised to be seen in the ER -refuses.Rates pain-9,[place] sit/stand/lay. Page sent to page op @ 542pm to # [phone]. Triage Note: Guideline Title: Back Symptoms Recommended Disposition: Override Disposition: See ED Immediately Question Response Question Note New or worsening signs and symptoms that may indicate No shock Any other cardiac signs/symptoms for more than 5 minutes, No now or within last hour. Pain is NOT associated with taking a deep breath or a productive cough, movement, or touch to a localized area on the chest or upper body. New paralysis (unable to move); new weakness (not due to No pain); new loss of coordination (purposeful action) OR new unexplained numbness/tingling involving arm and leg on same side of body Following significant trauma or injury to neck or back No AND immobile since event Age 50 years or older with sudden onset of deep boring or No tearing pain in back OR abdomen; may radiate to groin, hips or lower extremities Back pain associated with any breathing symptoms (such as No noisy breathing, struggling to breathe, sudden change in respiratory rate) Painful spasms or cramping of large muscle groups No (back, legs or abdomen) AND recent heat exposure Pain predominately in flank area No Urinary tract symptoms are primary symptoms No Urinary tract symptoms are primary symptoms No , less than 20 weeks gestation No and gestation 20-37 weeks AND low backache/pain No that is constant or increasing in intensity and gestation greater than 37 weeks AND low No backache/pain that is constant or increasing in intensity , back symptoms AND no signs of labor No New onset or unexplained change in bowel or bladder control No (unable to urinate and full feeling or loss of control of bowel or bladder) Numbness in the groin and saddle area of pelvis AND lower No extremity weakness OR change in bowel or bladder control (loss of control, retention, overflow) New onset of severe disabling back pain (unable to stand Yes upright) Physician Contacted: Physician Instructions: No Care Advice: - Protect the patient from falling or other harm. - Another adult should drive. - Do not give the patient anything to eat or drink. - If safe transport is very difficult or not possible, consider calling an ambulance or transport service. This may not be covered by insurance and will be [id number]. - IMMEDIATE ACTION - Write down provider's name. List or place the following in a bag for transport with the patient: current prescription and/or nonprescription medications; alternative treatments, therapies and medications;and street drugs. MEDICAL HISTORY Conditions: Condition Note: .Denies Medication: Medication Note: .Denies Allergy: Reaction: .Other .Other Procedure: Procedure Note: .Denies STRIAL CONTROLLER documented in this encounter Plan of Treatment Not on filedocumented as of this encounter Visit Diagnoses Not on filedocumented in this encounter Care Teams [employer] Physical Education Teacher Relationship Specialty Start Date End Date Rupesh Grullon MD PCP - General Internal Medicine 04/03/10 documented as of this encounter
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
--- OUTSIDE RECORDS SUMMARY | 2021-12-16 09:46 | XMS_ITS | Encounter Summary ---
:1955 Author Organization [place] Address [address] [place] [address] Care Team Providers Name Role Phone Rupesh Grullon MD Primary Care Provider Encounter Details Date Type Department Care Team Description 03/13/2012 Orders Only [facility] Hyp erlipidemia LDL goal <130; [place] [facility] Family history of thyroid di [facility] [address] [place] [address] Social History Tobacco Use Types [...] Comme nts TSH WITH FREE T4 Routine 03/13/2012 10:33 Family history of Re sults for this REFLEX AM DEICER ELEMENT WINDER MACHINE thyroid disorder procedure a re in the results section. LIPID REFLEX TO Routine 03/13/2012 10:33 Hyperlipidemia LDL go al Results for this DIRECT LDL PANEL AM DEICER ELEMENT WINDER MACHINE <130 procedure a re in the results section. BASIC METABOLIC Routine 03/13/2012 10:33 Hyperlipidemia LDL go al Results for this PANEL AM DEICER ELEMENT WINDER MACHINE <130 procedure are i n the results section. documented in this encounter Results (ABNORMAL) Basic metabolic panel (Ca, Cl, CO2, Creat, Gluc, K, Na, BUN) (03/13/2012 10:33 AM DEICER ELEMENT WINDER MACHINE) athologist Signature Sodium 144 133 - 144 [place] mmol/L [facility] Potassium 4.4 3.4 - 5.3 [place] mmol/L [facility] Chloride 107 94 - 109 [place] mmol/L [facility] Carbon Dioxide 28 20 - 32 [place] mmol/L [facility] Anion Gap 9 6 - 17 [place] mmol/L [facility] Glucose 114 (H) 60 - 99 [place] mg/dL [facility] Comment: Fasting specimen Urea Nitrogen 21 7 - 30 mg/dL [facility] Creatinine 0.71 0.52 - 1.04 mg/dL [facility] GFR Estimate 85 >60 mL/min/1.7m2 [place] [facility] GFR Estimate If Black >90 >60 mL/min/1.7m2 [facility] Calcium 9.7 8.5 - 10.4 mg/dL [facility] Specimen Anatomical Collection Method Collection Time Receive d Time (Source) Location / / Volume Laterality Blood specimen 03/13/2012 10:33 3 (specimen) AM DEICER ELEMENT WINDER MACHINE 10:34 AM DEICER ELEMENT WINDER MACHINE Rupesh Grullon MD LAB - BLOOD ORDERABLES Performing Organization Address City/State/ZIP Code Phon e Number [facility] [address] [address] [facility] TSH with free T4 reflex (03/13/2012 10:33 AM DEICER ELEMENT WINDER MACHINE) athologist Signature TSH 0.64 0.4 - 5.0 [facility] mU/L [facility] Specimen Anatomical Collection Method Collection Time Receive d Time (Source) Location / / Volume Laterality Blood specimen 03/13/2012 10:33 3 (specimen) AM DEICER ELEMENT WINDER MACHINE 10:34 AM DEICER ELEMENT WINDER MACHINE Rupesh Grullon MD LAB - BLOOD ORDERABLES Performing Organization Address City/State/ZIP Code Phon e Number [facility] [address] [place] [address] [facility] (ABNORMAL) Lipid panel reflex to direct LDL (03/13/2012 10:33 AM DEICER ELEMENT WINDER MACHINE) P athologist Signature Cholesterol 222 (H) 0 - 200 [place] mg/dL [facility] Comment: LDL Cholesterol is the primary guide to therapy. The NCEP recommends further evaluation of: patients with cholesterol greater than 200 mg/dL if additional risk facto rs are present, cholesterol greater than 240 mg/dL, triglycerides greater than 1 50 mg/dL, or HDL less than 40 mg/dL. Triglycerides 60 0 - 150 mg/dL [facility] Comment: Fasting specimen HDL Cholesterol 79 50 - 110 mg/dL [facility] LDL Cholesterol Calculated 132 (H) 0 - 129 mg/dL [facility] Comment: LDL Cholesterol is the primary guide to therapy: LDL-cholesterol goal in high risk patients is <100 mg/dL and in very high risk patients is <70 mg/dL. VLDL-Cholesterol 12 0 - 30 mg/dL [place] [facility] Cholesterol/HDL Ratio 2.8 0.0 - 5.0 [facility] Specimen Anatomical Collection Method Collection Time Receive d Time (Source) Location / / Volume Laterality Blood specimen 03/13/2012 10:33 3 (specimen) AM DEICER ELEMENT WINDER MACHINE 10:34 AM DEICER ELEMENT WINDER MACHINE Rupesh Grullon MD LAB - BLOOD ORDERABLES Performing Organization Address City/State/ZIP Code Phon e Number [facility] [address] [place] [phone] [facility] documented in this encounter Visit Diagnoses Diagnosis Hyperlipidemia LDL goal <130 Other and unspecified hyperlipidemia Family history of thyroid disorder Family history of other endocrine and me tabolic diseases documented in this encounter Care Teams Aperture Mask Etcher Relationship Specialty Start Date End Date Rupesh Grullon MD PCP - General Internal Medicine 04/03/10 documented as of this encounter
--- OUTSIDE RECORDS SUMMARY | 2021-12-16 09:46 | XMS_ITS | Encounter Summary ---
:1955 Author Organization [place] Address [address] [place] [address] Care Team Providers Name Role Phone Doctor, None Primary Care Provider Unavailable Rupesh Grullon MD Primary Care Provider Encounter Details Date Type Department Care Team Description 12/23/2005 Historic Results INTERFACED REPORT Yohannes Butcher MD [address] [address] (Wo rk) Social History Tobacco Use Types Packs/Day Years Used Date Never Assessed Sex Assigned at Date Recorded Not on file documented as of this encounter Plan of Treatment Not on filedocumented as of this encounter Procedures Procedure Name Priority Date/Time Associated Comments Diagnosis ABO/RH TYPE AND Routine 12/23/2005 10:20 Results for this SCREEN AM CDT procedure are i n the results section. HCG QUALITATIVE URINE Routine 12/23/2005 10:15 Re sults for this AM CDT procedure are i n the results section. documented in this encounter Results ABO/Rh type and screen (12/23/2005 10:20 AM CDT) Analysis Performed At Patho logist Time Signature ABO AB [facility] RH(D) Pos [facility] Antibody Neg [facility] Screen Specimen 12/26/2005 [facility] Expires Specimen Anatomical Collection Method Collection Time Receive d Time (Source) Location / / Volume Laterality 12/23/2005 10:20 12/23/2005 AM CDT 10:15 AM CDT Jeanna Butcher MD LAB - BLOOD BANK TEST ORDER Performing Organization Address City/State/ZIP Code Phon e Number [facility] HCG qualitative urine (12/23/2005 10:15 AM CDT) P athologist Signature HCG Qual Urine Negative NEG [facility] Specimen Anatomical Collection Method Collection Time Receive d Time (Source) Location / / Volume Laterality 12/23/2005 10:15 12/23/2005 AM CDT 10:17 AM CDT Jeanna Butcher MD LAB - URINE ORDERABLES Performing Organization Address City/State/ZIP Code Phon e Number [facility] documented in this encounter Visit Diagnoses Not on filedocumented in this encounter Care Teams Surgical Services Assistant Relationship Specialty Start Date End Date Doctor, MD Lizz PCP - General 04/26/01 04/02/10 Rupesh Grullon MD PCP - General Internal Medicine 04/03/10 documented as of this encounter
--- OUTSIDE RECORDS SUMMARY | 2021-12-16 09:46 | XMS_ITS | Encounter Summary ---
:1955 Author Organization [place] Address [address] [place] [address]. [place] [address] Care Team Providers Name Role Phone Lizz Berg MD Primary Care Provider Unavailable Rupesh Grullon MD Primary Care Provider Encounter Details Date Type Department Care Team Description 02/21/2010 Orders Only [facility] Rupesh Grullon MD COLONOSCOPY REPORT [facility] [place] [address] [facility] 02/21/10 (Primary Dx) [address] [facility] [place] [address] [place] [id number] Social History Tobacco Use Types Packs/Day Years Used Date Never Assessed Sex Assigned at Date Recorded Not on file documented as of this encounter Plan of Treatment Not on filedocumented as of this encounter Procedures Procedure Name Priority Date/Time Associated Diagnosis Comme nts COLONOSCOPY Routine 02/21/2010 COLONOSCOPY REPORT 02/21/10 documented in this encounter Results COLONOSCOPY (02/21/2010) Specimen (Source) Anatomical Location Collection Method / Collectio n Time Received Time / Laterality Volume 02/21/2010 Narrative This result has an attachment that is no t available. Rupesh Grullon MD PROCEDURES documented in this encounter Visit Diagnoses Diagnosis COLONOSCOPY REPORT 02/21/10 - Primary documented in this encounter Care Teams Merchandiser Retail Representative Relationship Specialty Start Date End Date Lizz Berg MD PCP - General 04/26/01 04/02/10 Rupesh Grullon MD PCP - General Internal Medicine 04/03/10 documented as of this encounter
--- OUTSIDE RECORDS SUMMARY | 2021-12-16 09:46 | XMS_ITS | Encounter Summary ---
:1955 Author Organization [place] Address [address] [place] [address] Care Team Providers Name Role Phone Doctor, None MD Primary Care Provider Unavailable Encounter Details Date Type Department Care Team Description 12/24/2005 Operative Report Dione Patel MD (Reaming Machine Operator For Plastic) [address] [address] (Wo rk) Social History Tobacco Use Types Packs/Day Years Used Date Never Assessed Sex Assigned at Date Recorded Not on file documented as of this encounter Progress Notes Dione Patel - 12/24/2005 9:16 PM CDT FINAL PREOPERATIVE DIAGNOSIS: 1. Menorrhagia. 2. Fibroid uterus. PROCEDURE: Total abdominal hysterectomy. SURGEON: Dione Patel MD UI ARCHITECT: Cassie Julien CST SPECIMEN: Uterus and cervix. ESTIMATED BLOOD LOSS: 150 ml. COMPLICATIONS: None. SPONGE AND NEEDLE COUNT: Correct x2 at the end of the case. FINDINGS: Normal ovaries and tubes bilaterally. Uterus overall enlarged. Otherwise pelvis within normal range. DESCRIPTION OF PROCEDURE: After induction with anesthesia, the patient was in dorsal lithotomy position. Then a tenaculum was placed on her cervix, and there was minimal descensus of the cervix into the vaginal vault with significant pressure. At this point, it was decided to proceed with abdominal hysterectomy. At this point, the patient was then prepped and draped in usual sterile fashion. A low Pfannenstielincision was made on her abdomen. This was extended down to the fascia. The fascia was incised. The fascial incision was extended bilaterally in both directions. The rectus muscle was at the midline. The incision was extended superiorly and inferiorly. Then the peritoneum was grasped and elevated, regrasped and then transected. The peritoneum was entered in this manner. The peritoneal incision was extended superiorly and inferiorly with care to the bladder and the underlying tissue. The uterus was then elevated out of the pelvis. The round ligaments bilaterally were clamped and then transected with cautery. The one on the right was sutured additionally. They were back clamped along the sides of the uterus. Then the bladder flap was created down onto the lower uterine segment. The bladder was pushed down onto the lower cervix. The utero-ovarian ligaments were isolated bilaterally. They were doubly clamped then transected. Then the utero-ovarian ligaments and the tubes were doubly suture ligated first with 0 Vicryl tie suture and then a suture ligature. This was done bilaterally. Uterine arteries bilaterally were then skeletonized. Then a curved Jossie clamp was placed at the isthmus of the cervix and the uterus. The arteries were back clamped as well. Then the uterine arteries were transected. Then they were suture ligated with 0 Vicryl sutures bilaterally. One straight clamp was placed along the cervix on each side of the cervix. Then this was clamped. The arteries were transected and then these were suture ligated with 0 Vicryl suture. This was done bilaterally. The bladder was pushed well ahead of this portion of the dissection. A curved clamp was placed around the cervix. Then the cervix was transected from the vaginal apex. The vaginal vault was entered in this process. The vaginal vault was then grasped with Lorelei clamps. After the specimen had been resected from the vagina and removed from the abdomen, then the vaginalvault was closed with 0 Vicryl running suture the length of the vault. There was one more area of bleeding that required suturing at the edge of the vaginal vault. The pedicles and the peritoneum were inspected and were hemostatic. The lap sponge was removed. Seprafilm was applied to the surgical sites. No self-retaining retractor was used during the case. The subfascial areas were assured to be hemostatic. Another piece of Seprafilm was placed on top of the omentum below the rectus muscle, and thenanother piece of Seprafilm was placed on top of the rectus muscle. The fascia was then closed with 0PDS running suture. The subcutaneous tissue was made hemostatic. Then the skin was closed with 4-0 Vicryl in a running fashion. The abdomen was washed off. The dressing was applied. The patient was woken up, transferred to the cart and taken to the recovery room in good condition. Electronically signed on 12/24/2005 21:16 by DIONE PATEL MD MT: [id number] Name: NADIA ESPINO MRN: [id number] Account: [id number] : 1955 Procedure Date: 12/24/2005 Document: [id number] documented in this encounter Plan of Treatment Not on filedocumented as of this encounter Visit Diagnoses Not on filedocumented in this encounter Care Teams Wad Impregnator Relationship Specialty Start Date End Date Doctor, MD Lizz PCP - General 04/26/01 04/02/10 documented as of this encounter
--- OUTSIDE RECORDS SUMMARY | 2021-12-16 09:46 | XMS_ITS | Encounter Summary ---
:1955 Author Organization [place] Address [address] [facility] [place] [address] Care Team Providers Name Role Phone Rupesh Grullon MD Primary Care Provider Encounter Details Date Type Department Care Team Description 03/17/2012 E-Visit [facility] Rupesh Grullon MD Encounter for Clinic [place] [address] [place] [address] consultation (Primary [address] [facility], [address] D[address]) [address] [place] [address] [place] [phone] Social History Tobacco Use Types Packs/Day Years [...] this encounter Visit Diagnoses Diagnosis Encounter for consultation - Primary Unspecified reason for consultation documented in this encounter Care Teams Excel Expert Relationship Specialty Start Date End Date Rupesh Grullon MD PCP - General Internal Medicine 04/03/10 documented as of this encounter
--- OUTSIDE RECORDS SUMMARY | 2021-12-16 09:46 | XMS_ITS | Encounter Summary ---
:1955 Author Organization [place] Address [address] [place] [address] Care Team Providers Name Role Phone Doctor, None MD Primary Care Provider Unavailable Encounter Details Date Type Department Care Team Description 03/14/2010 Emergency room [facility] Results [facility] [address] [place] [address] Social History Tobacco Use Types Packs/Day Years Used Date Never Assessed Sex Assigned at Date Recorded Not on file documented as of this encounter Progress Notes Interface, Electric Sealing Machine Operator - 03/15/2010 2:25 AM [facility] FINAL [id number] Chief Complaint - History of Present Illness - MD Time:: 00:00 - Chief Complaint: Somnolence and Sacral pain, post fall - HPI: Nadia Espino is a 54 y. o. female who presents at 1651 to the ED for evaluation of somnolence and sacral pain, post fall. Thepatient states she fell while ice skating 6 days ago, landing first on her tailbone and then striking the back of her head on the ice. The patient denies any loss of consciousness associated with this fall. Later that evening, the patient felt nauseous and, saw stars when walking around, but did not vomit. These symptoms resolved that night. Since then, the patient denies any nausea or seeing stars. She also denies changes in visual acuity, hearing problems, headache. However, the patient says she has generally felt, hazy since this incident and has been sleeping more often than normal. She doesn't take blood thinners. She still has mild tailbone pain, which is aggravated with sitting. It feels better when she walks. She saw an senior speech pathologist and has been trying tea to relieve the pain, but has not tried and pain medications. No other injuries. Medications - Medications: The patient is not currently taking any prescribed medications. Allergies penicillin;Rash Past Medical/Family History - [facility] is positive for: Hysterectomy for metrorhaggia, Tonsillectomy. - Family History: No family history was provided. 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 - Is negative for Tobacco use, Illicit drug use, Alcohol use Review of Systems - - All other systems negative except - HENT Negative for headaches - Gastrointestinal Positive for nausea, Negative for vomiting - Musculoskeletal Positive for joint pain, Positive for falls - Neurological Negative for tingling, Negative for sensory change, Negative for focal weakness, Negative for loss of consciousness - ROS Note Positive for Somnolence Positive for feeling, Hazy and generally notherself Vital Signs-Triage Temp F: 98.2 degrees F Temp C: 36.7 degrees C Heart Rate: 79 bpm Resp Rate: 18 Pulse Oximetry: 98 Cuff Systolic BP mmH Cuff Diastolic BP mmH Physical Exam - Constitutional Well developed, nourished, no distress present - HENT atraumatic, oropharynx clear and moist. no racoon eyes or grace sign. no hemotympanum. no facial injury. dentition normal. tongue and pharynx normal. - Eyes pupils equal, round, and reactive to light, extraocular movements normal - Neck range of motion normal, no meningismus present - Cardiovascular normal rate, regular rhythm - Pul/Chest Wall breath sounds normal, no respiratory distress present, no wheezes present, no rales present - Abdominal soft, no distention present, no tenderness present, no rebound present, no guarding present, no mass present - Musculoskeletal normal range of motion, no deformity present, no edema present, Tender over the sacrum. - Neurologic alert, oriented x3, gait normal, Skyla Coma Score is 15, no cranial nerve deficit present, normal coordination, normal strength, normal sensory, - . Speech fluent, STM is intact, Cerebellar Normal including Gait, Finger to Nose and Rhomberg. Pronator drift absent. Visual hung full to confrontation. Hearing normal. - Skin warm, dry, non-diaphoretic, no rash present, normal color present Diagnostic information - -: XR Sacrum and Coccyx: Negative, per radiology. \n XR Pelvis: Negative, per radiology. ED Course: Interventions/Consultations/Procedures - -: ED Course: I had an extensive discussion with the patient regarding her symptoms as well as her physical exam findings here in the ED. The patient was sent for a XR Sacrum and Coccyx and XR Pelvis while in the emergency department, findings above. I provided the patient with a referral to the [facility]. Rechecked the patient, findings and plan explained to the patient. Patient discharged home, status improved, with instructions regarding supportive care, medications, and reasons to return as well as the importance of close follow-up were reviewed. Medical Decision Making - -: The patient presents 5 or 6 days after falling onto her, causing sacral pain and hitting her head. She wasn't knocked out, but ever since her head injury, she has been experiencing symptoms consistent with a post-concussive syndrome. She has been somewhat sleepy, lethargic and feeling not quite herself. She has not developed any focal neurological deficits, had any seizures, had a severe headache or really any headache or had any vomiting. She does not take any blood thinners or have any coagulopathy. \n Because of the duration of time that has occurred since her injury and the fact that she has a completely normally neurologic exam here in the ED, I do not think that a CT scan of her head is indicated at this point. I discussed this with her and she understands the rationale for not obtaining a CT at this point. I just don't think any significant intracranial hemorrhage would be noted on a CT 6 days later. \n In terms of her ongoing neurologic symptoms, I suspect the represent a post- concussive syndrome and I am going to refer her to the [facility] for further evaluation and treatment. She has their number and will call tomorrow for an appointment. \n In terms of her sacral pain, x-rays of her pelvis and sacrum were obtained and they show no evidence of an acute fracture. Therefore, I suspect she has a contusion to her sacral region. I recommended a symptomatic treatment and using a doughnut cushion to sit on. I offered her pain medications, but she declined them. I recommended follow up if not improved within 2 weeks. Otherwise, return to the ER if worse. \n Diagnosis - -: 1. Concussion with post-concussive syndrome. 2. Sacral contusion. \n Scribe Disclosure I, Micheal Paul ,am serving as a scribe to document services personally performed by Dr. Patel , based on my observations and the provider's statements to me. Electronically signed on 03/15/2010 02:25 by KEN PATEL MD As dictated by MICHEAL PAUL MT: Name: NADIA ESPINO MRN: [id number] Account: [id number] : 1955 Visit Date: 03/14/2010 Document: [id number] CORRESPONDENT documented in this encounter Plan of Treatment Not on filedocumented as of this encounter Visit Diagnoses Not on filedocumented in this encounter Care Teams Mechanic Marine Engine Relationship Specialty Start Date End Date Doctor, Lizz, PCP - General 04/26/01 04/02/10 documented as of this encounter
--- OUTSIDE RECORDS SUMMARY | 2021-12-16 09:46 | XMS_ITS | Encounter Summary ---
:1955 Author Organization [facility] Address [address] [place] [address] Care Team Providers Name Role Phone Doctor, None MD Primary Care Provider Unavailable Reason for Visit Reason Comments Head Injury pt fell and hit back of head aprox 1 wk ago while ice skating,denies LOC but had nausea and sleepines s after fall.States cont to feel sleep and eye feel heavy.Per Sintia Hitchcock PAC due to sx not resolving over a week's time pt should eval in ER. Encounter Details Date Type Department Care Team Description 03/14/2010 Office Visit [facility] Provider, Jacob Del Real IAGNPUSHPA NOT YET Urgent Care Shantell Boogie MD DEFINED (Primary Dx) [address] [place] [id number] [phone] Social History Tobacco Use Types Packs/Day Years Used Date Never Assessed Sex Assigned at Date Recorded Not on file documented as of this encounter Last Filed Vital Signs Vital Sign Reading Time Taken Comments Blood Pressure 104/70 03/14/2010 4:23 PM [facility]OSP[facility] Pulse 76 03/14/2010 4:23 PM [facility] Temperature - - Respiratory Rate - - Oxygen Saturation - - Inhaled Oxygen Concentration - - Weight - - Height - - Body Mass Index - - documented in this encounter Nursing Notes 03/14/2010 4:15 PM CST >> ASAF Jiménez Mar 14, 2010 4:24 PM Patient presents with: Head Injury - pt fell and hit back of head aprox 1 wk ago while ice skating,denies LOC but had nausea and sleepiness after fall.States cont to feel sleep and eye feel heavy.Per Sintia Kennedy PAC due to sx not resolving over a week's time pt should eval in ER. Initial BP 104/70 Pulse 76 There is no height or weight on file to calculate BMI.. BP completed using cuff size: braden Johns LPN documented in this encounter Plan of Treatment Not on filedocumented as of this encounter Visit Diagnoses Diagnosis DIAGNOSIS NOT YET DEFINED - Primary documented in this encounter Care Teams Engagement Specialist Relationship Specialty Start Date End Date Doctor, None, PCP - General 04/26/01 04/02/10 documented as of this encounter
--- OUTSIDE RECORDS SUMMARY | 2021-12-16 09:46 | XMS_ITS | Encounter Summary ---
:1955 Author Organization [facility] Address [address] [place] [address] Care Team Providers Name Role Phone Doctor, None MD Primary Care Provider Unavailable Encounter Details Date Type Department Care Team Description 12/24/2005 Discharge Summary Dione Patel MD (Senior Linux Unix Administrator) [address] [address] (Wo rk) Social History Tobacco Use Types Packs/Day Years Used Date Never Assessed Sex Assigned at Date Recorded Not on file documented as of this encounter Progress Notes Dione Patel C - 01/15/2006 9:58 AM MEDICAL PATHOLOGIST FINAL PREOPERATIVE DIAGNOSIS: Menorrhagia. DISCHARGE DIAGNOSIS: Status post total abdominal hysterectomy. HOSPITAL COURSE: This is a 50-year-old female who was admitted to the hospital for hysterectomy. She had been suffering from menorrhagia and known fibroid uterus. She had decided to proceed with hysterectomy. Postoperatively the patient had a stable course. She was hospitalized until the second postoperative day. On the second postoperative day she was tolerating p.o. well. She had no nausea. She had good pain control. She was given and a Dulcolax suppository and was passing gas. She was up ad-wilver.She had appropriate pain levels that decreased with pain medication. She was eating well and voidingwithout difficulty. Her vital signs were stable. She was given discharge instructions per the routine. DISPOSITION AND PLAN: She was instructed to follow-up with provider in a routine fashion and was given routine discharge medications. She was discharged home on the second postoperative day in stable condition. Electronically signed on 01/15/2006 09:57 by DIONE PATEL MD MT: [id number] Name: NADIA ESPINO Account: [id number] : 1955 Admit Date: [id number] Discharge Date: 12/26/2005 Document: [id number] CAL PATHOLOGIST documented in this encounter Plan of Treatment Not on filedocumented as of this encounter Visit Diagnoses Not on filedocumented in this encounter Care Teams Office Specialist Relationship Specialty Start Date End Date Doctor, Lizz, PCP - General 04/26/01 04/02/10 documented as of this encounter
--- OUTSIDE RECORDS SUMMARY | 2021-12-16 09:46 | XMS_ITS | Encounter Summary ---
:1955 Author Organization [place] Address [facility] [place] [address] Care Team Providers Name Role Phone Alberto Grullon MD Primary Care Provider Reason for Visit Reason Comments Finger smashed between concrete, po inter finger on right hand Encounter Details Date Type Department Care Team Description 10/09/2010 Office Visit [facility] Alberto Grullon MD Finger injury (Primary Clinic [place] [address] [facility] Dx) [address] [facility] [address] [place] [address] [place] [address] Social History Tobacco Use Types [...] Sign Reading Time Taken Comments Blood Pressure 108/73 10/09/2010 11:50 AM CDT Pulse 52 10/09/2010 11:50 AM CDT Temperature 36.4 ??C (97.6 ??F) 10/09/2010 11:50 AM CDT Respiratory Rate - - Oxygen Saturation 100% 10/09/2010 11:50 AM CDT Inhaled Oxygen Concentration - - Weight 75.8 kg (167 lb) 10/09/2010 11:50 AM CDT Height - - Body Mass Index 27.37 10/06/2010 12:05 PM CDT documented in this encounter Progress Notes Alberto Grullon MD - 10/09/2010 12:33 PM CDT SUBJECTIVE: Nadia Esipno, a 55 year old female scheduled an appointment to discuss the following issues: FINGER INJURY Left index finger got smashed in the fountain head in the garden yesterday Had dt This finger hurts 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 10 point ROS of systems including Constitutional, Eyes, Respiratory, Cardiovascular, Gastroenterology, Genitourinary, Integumentary, Muscularskeletal, Psychiatric were all negative except for pertinentpositives noted in my HPI. OBJECTIVE: BP 108/73 Pulse 52 Temp(Src) 97.6 ??F (36.4 ??C) (Oral) Wt 167 lb (75.751 kg) SpO2 100% EXAM: GENERAL APPEARANCE: healthy, alert and no distress MS: left index finger subungual hematoma ASSESSMENT/PLAN: 959.5C Finger injury (primary encounter diagnosis) Comment: splint, ice Plan: X-ray rt finger 2-3 view ALBERTO GRULLON M.D., F.A.C.P documented in this encounter Nursing Notes 10/09/2010 11:45 AM CDT >> GIACOMO FERNANDEZ Mon Oct 09, 2010 11:52 AM Patient presents with: Finger - smashed between concrete, pointer finger on right hand Immunization History Administered Date(s) Administered TDAP (ADACEL AGES 11-64) 04/03/2010 Initial BP 108/73 Pulse 52 Temp(Src) 97.6 ??F (36.4 ??C) (Oral) Wt 167 lb (75.751 kg) SpO2 100% Estimated Body mass index is 27.37 kg/(m^2) as calculated from the following: Height as of 10/06/10: 5' 5.5(1.664 m). Weight as of this encounter: 167 lb(75.751 kg).. BP completed using cuff size: regular Anita S, FORM DRAFTER documented in this encounter Plan of Treatment Not on filedocumented as of this encounter Procedures Procedure Name Priority Date/Time Associated Diagnosis Comme nts XR FINGER RIGHT G/E Routine 10/09/2010 1:35 PM Finger injury R esults for this 2 VIEWS CDT procedure are i n the results section. documented in this encounter Results X-ray rt finger 2-3 view (10/09/2010 1:35 PM CDT) Anatomical Region Laterality Modality Right Hand Right Other Specimen (Source) Anatomical Collection Method Collection Time Re ceived Time Location / / Volume Laterality 10/09/2010 1:35 PM CDT Impressions 10/09/2010 4:28 PM CDT SECOND DIGIT RIGHT HAND, THREE VIEWS ??A 2010 1:35:00 PM HISTORY: Injury. COMPARISON: None. FINDINGS: Localized views show no fractu re or focal bone lesion. There appears to be mild soft tissue swelling. IMPRESSION: Soft tissue swelling. No fra cture. Alberto Grullon MD IMG DIAGNOSTIC IMAGING ORDER MIGUELANGEL documented in this encounter Visit Diagnoses Diagnosis Finger injury - Primary Injury, other and unspecified, finger documented in this encounter Care Teams Buffer Inflated Pad Relationship Specialty Start Date End Date Alberto Grullon MD PCP - General Internal Medicine 04/03/10 documented as of this encounter
--- OUTSIDE RECORDS SUMMARY | 2021-12-16 09:46 | XMS_ITS | Encounter Summary ---
:1955 Author Organization [place] Address [address] [place] [address] Care Team Providers Name Role Phone Doctor, None Primary Care Provider Unavailable Rupesh Grullon MD Primary Care Provider Encounter Details Date Type Department Care Team Description 12/25/2005 Historic Results INTERFACED REPORT Yohannes Butcher MD [address] [address] (Wo rk) Social History Tobacco Use Types Packs/Day Years Used Date Never Assessed Sex Assigned at Date Recorded Not on file documented as of this encounter Plan of Treatment Not on filedocumented as of this encounter Procedures Procedure Name Priority Date/Time Associated Diagnosis Comme nts HEMOGLOBIN Timed 12/25/2005 7:36 AM Results f or this CDT procedure are i n the results section . documented in this encounter Results Hemoglobin (12/25/2005 7:36 AM CDT) P athologist Signature Hemoglobin 12.4 11.7 - 15.7 MISYS g/dL Specimen Anatomical Collection Method Collection Time Receive d Time (Source) Location / / Volume Laterality 12/25/2005 7:36 AM 6 6:00 CDT AM CDT Jeanna Butcher MD LAB - BLOOD ORDERABLES Performing Organization Address City/State/ZIP Code Phon e Number MISYS documented in this encounter Visit Diagnoses Not on filedocumented in this encounter Care Teams Roll Form Operator Relationship Specialty Start Date End Date Doctor, None, PCP - General 04/26/01 04/02/10 Rupesh Grullon MD PCP - General Internal Medicine 04/03/10 documented as of this encounter
--- OUTSIDE RECORDS SUMMARY | 2021-12-16 09:46 | XMS_ITS | Encounter Summary ---
:1955 Author Organization [place] Address [facility] [place] [address] Care Team Providers Name Role Phone Rupesh Grullon MD Primary Care Provider Encounter Details Date Type Department Care Team Description 06/30/2010 Results Only [facility] Rupesh Grullon MD Hospital Results [address] [facility] [address] [place] [address] (Wo rk) Social History Tobacco Use Types [...] Associated Diagnosis Comme nts MA SCREENING Routine 06/30/2010 9:34 AM Results f or this DIGITAL BILATERAL CDT procedure are in the results section. documented in this encounter Results Mammo Screening digital (bilat) (06/30/2010 9:34 AM CDT) Specimen (Source) Anatomical Collection Method Collection Time Re ceived Time Location / / Volume Laterality 06/30/2010 9:34 AM CDT Impressions RADIOLOGY RESULTS - 07/19/2010 9:55 AM C DT SCREENING MAMMOGRAM BILATERAL, DIGITAL w /CAD - June 30, 2010 9:34:00 AM BREAST SYMPTOMS: No current breast compl aints. COMPARISON: 04/21/2009, 03/25/2008, 006. ?? PARENCHYMAL PATTERN: Heterogeneously den se, which could obscure detection of small masses. COMMENTS: No findings of suspicion for m alignancy. IMPRESSION: BI-RADS 1, NEGATIVE. RECOMMENDATION: Annual screening mammogr aphy. Rupesh Grullon MD IMG MAMMOGRAPHY ORDERABLES Performing Organization Address City/State/ZIP Code Phon e Number RADIOLOGY RESULTS documented in this encounter Visit Diagnoses Not on filedocumented in this encounter Care Teams Tellers Supervisor Relationship Specialty Start Date End Date Rupesh Grullon MD PCP - General Internal Medicine 04/03/10 documented as of this encounter
--- OUTSIDE RECORDS SUMMARY | 2021-12-16 09:46 | XMS_ITS | Encounter Summary ---
:1955 Author Organization [place] Address [facility] [place] [address] Care Team Providers Name Role Phone Rupesh Grullon MD Primary Care Provider Reason for Visit Reason Onset Date Comments Call Back 01/14/2012 Wants physical appt Encounter Details Date Type Department Care Team Description 01/14/2012 Telephone [facility] Rupesh Grullon MD Call Back (Wants Clinic [place] [address] [facility] physical appt) [address] [facility] [address] [place] [address] [place] [address] Social History Tobacco Use Types [...] this encounter Miscellaneous Notes Telephone Encounter - Kristin Cash - 01/14/2012 11:11 AM CREW LEADER Scheduled and confirmed LEADER Telephone Encounter - Digna Inman - 01/14/2012 10:11 AM CST Routed to scheduling. Clarisse Inman RN, BS, PHN LEADER Telephone Encounter - Ligia Lentz - 01/14/2012 10:07 AM CST Patient requesting physical appt. Recently has had siblings diagnosed with concerning health issues.Did not specify what dates she needs as she is flexible. Please call. Ligia Sharma Roving Teller LEADER documented in this encounter Plan of Treatment Not on filedocumented as of this encounter Visit Diagnoses Not on filedocumented in this encounter Care Teams Elastic Attacher Zigzag Relationship Specialty Start Date End Date Rupesh Grullon MD PCP - General Internal Medicine 04/03/10 documented as of this encounter
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
--- OUTSIDE RECORDS SUMMARY | 2021-12-16 09:46 | XMS_ITS | Encounter Summary ---
:1955 Author Organization [place] Address [facility] [place] [address] Care Team Providers Name Role Phone Alberto Grullon MD Primary Care Provider Reason for Visit Reason Comments Arm Pain left upper arm pain Encounter Details Date Type Department Care Team Description 02/22/2011 Office Visit [facility] Alberto Grullon MD Pain in shoulder Clinic [place] [address] [facility] (Primary Dx) [facility] [facility] [address] [place] [address] [place] [id number] Social History Tobacco Use Types Packs/Day Years [...] Sign Reading Time Taken Comments Blood Pressure 129/61 02/22/2011 3:17 PM GAMBLING FLOOR SUPERVISOR Pulse 53 02/22/2011 3:17 PM GAMBLING FLOOR SUPERVISOR Temperature 36.4 ??C (97.6 ??F) 02/22/2011 3:17 PM GAMBLING FLOOR SUPERVISOR Respiratory Rate - - Oxygen Saturation 100% 02/22/2011 3:17 PM GAMBLING FLOOR SUPERVISOR Inhaled Oxygen Concentration - - Weight 76.2 kg (168 lb 1.6 oz) 02/22/2011 3:17 PM GAMBLING FLOOR SUPERVISOR Height 166.4 cm (5' 5.5) 02/22/2011 3:17 PM GAMBLING FLOOR SUPERVISOR Body Mass Index 27.55 02/22/2011 3:17 PM GAMBLING FLOOR SUPERVISOR documented in this encounter Progress Notes Alberto Grullon MD - 02/22/2011 3:20 PM CST Nadia Espino is a 55 year old female she presents with left Shoulder pain for 2months . No injury, no fall. 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 Taking No meds For pain. Filed Vitals: 02/22/11 1517 BP: 129/61 Pulse: 53 Temp: 97.6 ??F (36.4 ??C) TempSrc: Oral Height: 5' 5.5 (1.664 m) Weight: 168 lb 1.6 oz (76.25 kg) SpO2: 100% On exam: Inspection, shoulder contour normal No wasting of muscles. On palpation, tender on Supraspinatus and biceps Range of movement normal Subacromial bursa non- Tender on palpation. Diagnosis and Plan: Xray--- not Needed Exercises explained. Referral made to physical therapy. NSAIDS risk explained and Rx ordered. If not better in 6 weeks or so, should call. Avoid frequent lifting for a few weeks ALBERTO GRULLON M.D., F.A.C.P LING FLOOR SUPERVISOR documented in this encounter Nursing Notes 02/22/2011 3:15 PM CST >> AUTUMN LANDAVERDE [facility] Feb 22, 2011 3:18 PM Patient presents with: Arm Pain - left upper arm pain Initial BP 129/61 Pulse 53 Temp(Src) 97.6 ??F (36.4 ??C) (Oral) Ht 5' 5.5 (1.664 m) Wt 168 lb 1.6 oz (76.25 kg) BMI 27.55 kg/m2 SpO2 100% Estimated Body mass index is 27.55 kg/(m^2) as calculated from the following: Height as of this encounter: 5' 5.5(1.664 m). Weight as of this encounter: 168 lb 1.6 oz(76.25 kg).. BP completed using cuff size: regular MEDICATIONS REVIEWED SOCIAL AND FAMILY HX REVIEWED Autumn Landaverde cma documented in this encounter Plan of Treatment Not on filedocumented as of this encounter Visit Diagnoses Diagnosis Pain in shoulder - Primary Pain in joint, shoulder region documented in this encounter Care Teams Strand Buncher Fine Wire Relationship Specialty Start Date End Date Alberto Grullon MD PCP - General Internal Medicine 04/03/10 documented as of this encounter
--- OUTSIDE RECORDS SUMMARY | 2021-12-16 09:46 | XMS_ITS | Encounter Summary ---
:1955 Author Organization [place] Address [address] [place] [address] Care Team Providers Name Role Phone Rupesh Grullon MD Primary Care Provider Encounter Details Date Type Department Care Team Description 07/27/2010 Historic Notes INTERFACED REPORT Interface, Transcript on, Social History Tobacco Use Types Packs/Day Years [...] as of this encounter Progress Notes Interface, Boiler Coverer Helper - 12/11/2010 8:36 PM CDT OUT-PATIENT NUTRITION CONSULTATION DIAGNOSIS: Hyperlipidemia REFERRING MD: Dr. Grullon MEDS/SUPPLEMENTS: none/ supplement for nails and hair (not sure of name) LABS: chol 178 HDL 64 LDL 105 TG 45 gluc 108 ANTHROPOMETRICS: Ht: 5' 7 Wt: 73.3 kg BMI: 25.3 kg/m2 DIET HISTORY: Pt. reports she is very up set with her weight gain of 20-30 pounds over 5-6 years. Inconsistent eating pattern due to busy schedule (often skips meals on the weekends. Dines out 5-6 time/year and ussually eats soups and salads with red wine. Drinks about 4 glasses of wine/week. Denies any issues with emotional eating.Beverages- water, coffee and occasionally skim milk. breakfast-1 banana or yogurt or 2 scrambled eggs lunch- 2 large rye crisp crackers, tomatoe slices and sliced cheese dinner- 6 ounce chicken breast, peas or cooked Kale snacks-1/2 cup raw almonds EXERCISE: Currently gardening 3-4 hours /day. Was working with an graduate assistant athletic trainer 4-5 times/ week (was active for 80 min.) NUTRITION DIAGNOSIS: Excess fat intake related to food and nutrition knowledge deficit as evidenced by current LDL of 105 mg/dL. INTERVENTIONS: Discussed portion sizes, label reading, and heart health guidelines (Therepeutic lifestyle Changes). Provided written information on heart healthy guidelines, label reading, and soluble fiber. Discussed issues around weight gain (likely not eating enough calories) and encouraged resuming regular physical activity OUTCOMES: Understands food allowances following diet as instructed-verbalized Understands benefit of physical activity-verbalized Demonstrates motivation to comply with diet-needs reinforcement GOALS: Limit fat intake to 50 grams with no more than 12 grams saturated or trans fatty acids per day. Focus on eating 3 meal/day at regular intervals Choose low fat foods from 3-4 fod groups/meal Reduce nut portion to not more than 1/4 cup/day FOLLOW-UP: RD name and number provided Discussed wt. loss program (Create Your Weight) as possible option and provided a brochure on this program [Signature] Author: Madan West (MARYLU, LD) [Signed 16:08] documented in this encounter Plan of Treatment Not on filedocumented as of this encounter Visit Diagnoses Not on filedocumented in this encounter Care Teams Outreach Rep Relationship Specialty Start Date End Date Rupesh Grullon MD PCP - General Internal Medicine 04/03/10 documented as of this encounter
--- OUTSIDE RECORDS SUMMARY | 2021-12-16 09:46 | XMS_ITS | Encounter Summary ---
:1955 Author Organization [place] Address [facility] [place] [address] Care Team Providers Name Role Phone Rupesh Grullon MD Primary Care Provider Reason for Referral Specialty Diagnoses / Procedures Referred By Contact Refer red To Contact Rupesh Grullon MD [address] [facility] [address] [place] [address] Referral ID Status Reason Start Date Expiration Date Visits Requ ested Visits Authorized N MAN Encounter Details Date Type Department Care Team Description 04/03/2010 Orders Only [facility] Rupesh Grullon MD [facility] [place] [address] Referral (Primary Dx) [address] [facility] [address] [place] [address] [place] [id number] Social History Tobacco Use Types Packs/Day Years [...] Name Priority Date/Time Associated Diagnosis Comme nts ADULT COLORECTAL SURGERY Routine 04/03/2010 ColoRectal Surg Referral TANKROOM TENDER REFERRAL documented in this encounter Results COLORECTAL SURGERY REFERRAL (04/03/2010) Specimen (Source) Anatomical Location Collection Method / Collectio n Time Received Time / Laterality Volume 04/03/2010 Narrative This result has an attachment that is no t available. Rupesh Grullon MD REFERRAL documented in this encounter Visit Diagnoses Diagnosis ColoRectal Surg Referral - Primary documented in this encounter Care Teams Zinc Chloride Operator Relationship Specialty Start Date End Date Rupesh Grullon MD PCP - General Internal Medicine 04/03/10 documented as of this encounter
--- OUTSIDE RECORDS SUMMARY | 2021-12-16 09:46 | XMS_ITS | Encounter Summary ---
:1955 Author Organization [place] Address [facility] [place] [address] Care Team Providers Name Role Phone Alberto Grullon MD Primary Care Provider Reason for Visit Reason Comments Musculoskeletal Problem left foot injury 1 week ago Encounter Details Date Type Department Care Team Description 06/29/2010 Office Visit [facility] Alberto Grullon MD Foot injury (Primary Dx); [facility] [place] [address] [facility] Screening mammogram [address] [facility] [address] [place] [address] [place] [phone] Social History Tobacco Use Types Packs/Day Years [...] Sign Reading Time Taken Comments Blood Pressure 111/63 06/29/2010 4:02 PM CDT Pulse 62 06/29/2010 4:02 PM CDT Temperature 36.5 ??C (97.7 ??F) 06/29/2010 4:02 PM CDT Respiratory Rate - - Oxygen Saturation 98% 06/29/2010 4:02 PM CDT Inhaled Oxygen Concentration - - Weight 75 kg (165 lb 4.8 oz) 06/29/2010 4:02 PM CDT Height 166.4 cm (5' 5.5) 06/29/2010 4:02 PM CDT Body Mass Index 27.09 06/29/2010 4:02 PM CDT documented in this encounter Progress Notes Alberto Grullon MD - 06/30/2010 6:55 AM CDT SUBJECTIVE: Nadia Espino, a 55 year old female scheduled an appointment to discuss the following issues: SCREENING MAMMOGRAM FOOT INJURY Dropped something on foot 1 week ago Can walk, has been putting heat on it Tender at some areas No sweling Medical, social, surgical, and family histories reviewed. ROS: 10 point ROS of systems including Constitutional, Eyes, Respiratory, Cardiovascular, Gastroenterology, Genitourinary, Integumentary, Muscularskeletal, Psychiatric were all negative except for pertinentpositives noted in my HPI. OBJECTIVE: BP 111/63 Pulse 62 Temp(Src) 97.7 ??F (36.5 ??C) (Oral) Ht 5' 5.5 (1.664 m) Wt 165 lb 4.8 oz (74.98 kg) BMI 27.09 kg/m2 SpO2 98% EXAM: GENERAL APPEARANCE: healthy, alert and no distress Left foot No swelling On dorsum 3-5 metatarsals bruise noted No tenderness except at 4th metatarsal body ASSESSMENT/PLAN: 959.7M Foot injury (primary encounter diagnosis) Comment: ice, elevation, ibuprofen, rest Plan: xray not needed Avoid footsteps and dance for exercisex 2 weeks V76.12B Screening mammogram Comment: Plan: Mammo Screening digital (bilat) \incontinence improved with exercise ALBERTO GRULLON M.D., F.A.C.P documented in this encounter Nursing Notes 06/29/2010 4:30 PM CDT >> [facility]N [facility] Jun 29, 2010 4:05 PM Patient presents with: Musculoskeletal Problem - left foot injury 1 week ago Initial BP 111/63 Pulse 62 Temp(Src) 97.7 ??F (36.5 ??C) (Oral) Ht 5' 5.5 (1.664 m) Wt 165 lb 4.8 oz (74.98 kg) BMI 27.09 kg/m2 SpO2 98% Estimated Body mass index is 27.09 kg/(m^2) as calculated from the following: Height as of this encounter: 5' 5.5(1.664 m). Weight as of this encounter: 165 lb 4.8 oz(74.98 kg).. BP completed using cuff size: regular MEDICATIONS REVIEWED SOCIAL AND FAMILY HX REVIEWED Autumn Landaverde cma documented in this encounter Plan of Treatment Not on filedocumented as of this encounter Visit Diagnoses Diagnosis Foot injury - Primary Injury, other and unspecified, knee, leg , ankle, and foot Screening mammogram Other screening mammogram documented in this encounter Care Teams Manager Law Relationship Specialty Start Date End Date Alberto Grullon MD PCP - General Internal Medicine 04/03/10 documented as of this encounter
--- OUTSIDE RECORDS SUMMARY | 2021-12-16 09:46 | XMS_ITS | Encounter Summary ---
:1955 Author Organization [place] Address [address] [place] [address] Care Team Providers Name Role Phone Rupesh Grullon MD Primary Care Provider Encounter Details Date Type Department Care Team Description 06/30/2010 Orders Only [facility] [place] Weight gain Laboratory [address] [place], [place] [phone] Social History Tobacco Use Types Packs/Day Years [...] Priority Date/Time Associated Diagnosis Comme nts TSH Routine 06/30/2010 8:56 AM Weight gain Results f or this CDT procedure are i n the results section . LIPID PROFILE Routine 06/30/2010 8:56 AM Weight gain Results for this CDT procedure are i n the results section . GLUCOSE Routine 06/30/2010 8:56 AM Weight gain Results f or this CDT procedure are i n the results section . documented in this encounter Results Lipid panel (06/30/2010 8:56 AM CDT) athologist Signature Cholesterol 178 0 - 200 [place] mg/dL [facility] Comment: LDL Cholesterol is the primary guide to therapy. The NCEP recommends further evaluation of: patients with cholesterol greater than 200 mg/dL if additional risk facto rs are present, cholesterol greater than 240 mg/dL, triglycerides greater than 1 50 mg/dL, or HDL less than 40 mg/dL. Triglycerides 45 0 - 150 mg/dL [facility] Comment: Fasting specimen HDL Cholesterol 64 50 - 110 mg/dL [facility] LDL Cholesterol Calculated 105 0 - 129 mg/dL [facility] Comment: LDL Cholesterol is the primary guide to therapy: LDL-cholesterol goal in high risk patients is <100 mg/dL and in very high risk patients is <70 mg/dL. VLDL-Cholesterol 9 0 - 30 mg/dL [place] O [facility] Cholesterol/HDL Ratio 2.8 0.0 - 5.0 [facility] Specimen Anatomical Collection Method Collection Time Receive d Time (Source) Location / / Volume Laterality Blood specimen 06/30/2010 8:56 AM 011 8:58 (specimen) CDT AM CDT Rupesh Grullon MD LAB - BLOOD ORDERABLES Performing Organization Address City/State/ZIP Code Phon e Number [facility] [address] [place] [phone] [facility] (ABNORMAL) Glucose (06/30/2010 8:56 AM CDT) athologist Signature Glucose 108 (H) 60 - 99 [place] mg/dL [facility] Comment: Fasting specimen Specimen Anatomical Collection Method Collection Time Receive d Time (Source) Location / / Volume Laterality Blood specimen 06/30/2010 8:56 AM 011 8:58 (specimen) CDT AM CDT Rupesh Grullon MD LAB - BLOOD ORDERABLES Performing Organization Address City/[facility]/ZIP Code Phon e Number [facility] [address] [place] [address] [facility] TSH (06/30/2010 8:56 AM CDT) P athologist Signature TSH 0.75 0.4 - 5.0 [facility] mU/L CLINIC LAB Specimen Anatomical Collection Method Collection Time Receive d Time (Source) Location / / Volume Laterality Blood specimen 06/30/2010 8:56 AM 011 8:58 (specimen) CDT AM CDT Rupesh Grullon MD LAB - BLOOD ORDERABLES Performing Organization Address City/State/ZIP Code Phon e Number [facility] [address] [place] [address] [facility] documented in this encounter Visit Diagnoses Diagnosis Weight gain Abnormal weight gain documented in this encounter Care Teams Media Analytics Manager Relationship Specialty Start Date End Date Rupesh Grullon MD PCP - General Internal Medicine 04/03/10 documented as of this encounter
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
--- OUTSIDE RECORDS SUMMARY | 2021-12-16 09:46 | XMS_ITS | Encounter Summary ---
:1955 Author Organization [place] Address [address] [place] [address]. [place] [address] Care Team Providers Name Role Phone Rupesh Grullon MD Primary Care Provider Reason for Visit Reason Onset Date Comments Neck Pain 05/22/2010 Encounter Details Date Type Department Care Team Description 05/22/2010 Telephone [facility] Ricki Grullon MD Neck Pain [place] [address] [facility] [address] [facility], [address] [place] [address] [place] [address] [phone] Social History Tobacco Use Types Packs/Day Years [...] encounter Miscellaneous Notes Telephone Encounter - Huong Walker - 05/22/2010 3:38 PM CDT Pt called back. Please call her again. Telephone Information: Telephone Encounter - Fina Wilson - 05/22/2010 3:18 PM CDT SUBJECTIVE: Nadia Espino is a 54 year old female who calls the clinic due to neck pain. Pain began Saturday am. Pain is in pt's neck. Mechanism of injury: weight lifting--but pt not certain. Pt denies any back pain. Pt had massage today which helped sx. Informed pt of RX Flexeril. Patient advised to contact clinic if symptoms worsen or new symptoms develop. Fina Wilson Telephone Encounter - Rupesh Grullon MD - 05/22/2010 9:53 AM CDT rx per RN protocol Flexeril faxed Telephone Encounter - Keeley Ambrose - 05/22/2010 9:34 AM CDT Patient did something to her back over the weekend and his having pain in her neck/back. She is wondering if she should make and appointment with her chiropractor or with Dr. Grullon. Please advise. -Keeley Ambrose documented in this encounter Plan of Treatment Not on filedocumented as of this encounter Visit Diagnoses Diagnosis Back injuries - Primary Other injury of other sites of trunk documented in this encounter Care Teams Automobile Engine Assembler Relationship Specialty Start Date End Date Rupesh Grullon MD PCP - General Internal Medicine 04/03/10 documented as of this encounter
--- OUTSIDE RECORDS SUMMARY | 2021-12-16 09:46 | XMS_ITS | Encounter Summary ---
:1955 Author Organization [place] Address [address] [place] [address]. [place] [address] Care Team Providers Name Role Phone Rupesh Grullon MD Primary Care Provider Reason for Visit (Routine) - Closed Specialty Diagnoses / Procedures Referred By Contact Refer red To Contact Radiology Diagnoses SCREENING BILATERAL-DIGITAL Procedure Notes: ANNUAL Breast Imaging Procedures RADIOLOGY [address] [facility], [address] [place] [address] Phone: Referral ID Status Reason Start Date Expiration Date Visits Requ ested Visits Authorized [id number] Closed 07/07/2011 07/06/2012 1 1 Encounter Details Date Type Department Care Team Description 07/10/2011 Hospital Encounter [facility] Anali Grullon ot, MD [facility] Breast [address] [facility] [address], [address] [place] [address] [place] [address] [phone] Social History Tobacco Use Types Packs/Day Years [...] End Date NO ACTIVE MEDICATIONS 0 04/03/2010 naproxen (NAPROSYN) 500 Take 1 tablet by 60 tablet 1 201003/03/2012 MG tabletIndications: mouth 2 times daily Pain in shoulder (with meals). documented as of this encounter Plan of Treatment Not on filedocumented as of this encounter Procedures Procedure Name Priority Date/Time Associated Diagnosis Comme nts MA SCREENING Routine 07/10/2011 8:38 AM Results f or this DIGITAL BILATERAL CDT procedure are in the results section. documented in this encounter Results Mammo Screening digital (bilat) (07/10/2011 8:38 AM CDT) Anatomical Region Laterality Modality Breast Bilateral Other Specimen (Source) Anatomical Collection Method Collection Time Re ceived Time Location / / Volume Laterality 07/10/2011 8:38 AM CDT Impressions 07/10/2011 10:29 AM CDT SCREENING MAMMOGRAM, BILATERAL, DIGITAL w/CAD - July 10, 2011 8:38:00 AM BREAST SYMPTOMS: No current breast compl aints. COMPARISON: ??06/30/2010, 03/25/2008 PARENCHYMAL PATTERN: Heterogeneously den se, limiting mammographic sensitivity. COMMENTS: No findings of suspicion for m alignancy. ?? IMPRESSION: BI-RADS 1, NEGATIVE. RECOMMENDATION: Recommend annual screeni ng mammography. Exam results letter mailed to patient. Rupesh Grullon MD IMG MAMMOGRAPHY ORDERABLES documented in this encounter Visit Diagnoses Not on filedocumented in this encounter Care Teams Skein Dyer Relationship Specialty Start Date End Date Rupesh Grullon MD PCP - General Internal Medicine 04/03/10 documented as of this encounter
--- OUTSIDE RECORDS SUMMARY | 2021-12-16 09:46 | XMS_ITS | Encounter Summary ---
:1955 Author Organization [place] Address [facility] [place] [address] Care Team Providers Name Role Phone Rupesh Grullon MD Primary Care Provider Reason for Referral Referral not Required - Closed Specialty Diagnoses / Procedures Referred By Contact Refer red To Contact Diagnoses Hyperlipidemia LDL goal <130 Rupesh Grullon MD [facility] [address] [facility] [address] [facility] [address] [place] [address] Phone: [phone] Referral ID Status Reason Start Date Expiration Date Visits Requ ested Visits Authorized [id number] Closed 07/04/2010 12/31/2010 1 1 Encounter Details Date Type Department Care Team Description 07/04/2010 E-Visit [facility] Rupesh Grullon MD Hyperlipidemia LDL goal Clinic [place] [address] [facility] [address] <130 (Primary Dx) [address] [facility] [address] [place] [address] [place] [address] Social History Tobacco Use Types Packs/Day [...] as of this encounter Plan of Treatment Scheduled Referrals Name Type Priority Associated Diagnoses Order S chedule NUTRITION REFERRAL Referral Routine Hyperlipidemia LDL goa l <130 Ordered: 07/04/2010 documented as of this encounter Visit Diagnoses Diagnosis Hyperlipidemia LDL goal <130 - Primary Other and unspecified hyperlipidemia documented in this encounter Care Teams Instrumentation Technician Relationship Specialty Start Date End Date Rupesh Grullon MD PCP - General Internal Medicine 04/03/10 documented as of this encounter
--- OUTSIDE RECORDS SUMMARY | 2021-12-16 09:46 | XMS_ITS | Encounter Summary ---
:1955 Author Organization [place] Address [facility] [place] [address] Care Team Providers Name Role Phone Rupesh Grullon MD Primary Care Provider Encounter Details Date Type Department Care Team Description 02/16/2011 Medical Correspondence [facility] Rupesh Grullon NACR Physician Form Clinic [place] [facility] [address] [facility] [address] [facility], [address] [place] [address] [phone] Social History Tobacco Use Types Packs/Day Years [...] on filedocumented in this encounter Care Teams Osteopathic Medicine Teacher Relationship Specialty Start Date End Date Rupesh Grullon MD PCP - General Internal Medicine 04/03/10 documented as of this encounter
== END 2021-12-16 09:45 | disposition home or self-care (01) ==
PROVIDERS: Emergency Provider Family Medicine
DX: L50.9 Urticaria, unspecified (principal)
CPT/HCPCS: 99283; 99284; A9270; J7512